=== PATIENT | male | born 1935 | race Caucasian/White ===

== ENCOUNTER 2017-01-07 10:18 | Inpatient (IN) | payer OTHER ==
[~2017-01-07] VITALS: Ht 180.3 cm; Wt 106.6 kg
[~2017-01-07 10:18] MED LIST: ALLOPURINOL300 M1 PO; BUMETANIDE1 M1 PO; CARDURA2 M1 PO; COUMADIN5 M2 PO; GLIPIZIDE AND M1 TA2 PO; JANUVIA 100MG100 MG PO; KLOR-CON M1010 ME1 PO; LANTUS SOL100 UNIT/1 SC; LANTUS SOLOS100 U/ML SC; LEVAQUIN500 MG PO; LEVEMIR100 U/ML SC; LOVENOX 4040 MG/0.4 SC; METFORMIN HCL500 MG PO; METOPROLOL TART25 M1 PO; NOVOLIN R1000 UNITS SC; VANCOMYCIN 11000 MG IV; ZOCOR20 M1 PO
--- NOTE | 2017-01-07 10:32 | ED SKIN/ALLERGY COMPLAINT ---
History of Present Illness General Chief Complaint: General Adult Stated Complaint: R ANKLE REDNESS Source: patient, old records, EMS Exam Limitations: no limitations Vital Signs & Intake/Output Vital Signs & Intake/Output Vital Signs Date Time Temp Pulse Resp B/P Pulse O2 O2 Flow FiO2 Ox Delivery Rate 01/07 1504 96.8 68 18 128/78 95 Room Air 01/07 1111 99 Room Air 01/07 1026 97.4 70 18 181/81 96 Room Air Allergies Coded Allergies: Sulfa (Sulfonamide Antibiotics) (Mild, ITCHING 01/07/17) Penicillins (HAD A REACTION A KID 01/07/17) Reconcile Medications Allopurinol 300 MG TABLET 1 TAB PO QPM GOUT (Reported) Bumetanide 1 MG TABLET 1 TAB PO DAILY WATER PILL (Reported) Doxazosin Mesylate (Cardura) 2 MG TABLET 1 TAB PO QPM BP (Reported) Gabapentin 300 MG CAPSULE 1 CAP PO BID NEUROPATHY (Reported) Insulin Glargine,Hum.rec.anlog (Lantus Solostar) 100 UNIT/ML (3 ML) INSULN.PEN 10 UNIT SC QPM DM (Reported) Insulin Glargine,Hum.rec.anlog (Lantus Solostar) 100 UNIT/ML (3 ML) INSULN.PEN 50 UNIT SC QPM DM (Reported) Metformin HCl 500 MG TABLET 1 TAB PO 1700 DM (Reported) Metoprolol Tartrate 25 MG TABLET 1 TAB PO BID BP (Reported) Potassium Chloride (Klor-Con M10) 10 MEQ TAB.ER.PRT 1 TAB PO BID SUPPLEMENT ( Reported) Simvastatin (Zocor*) 20 MG TABLET 1 TAB PO QPM CHOLESTEROL (Reported) Warfarin Sodium (Coumadin) 5 MG TABLET 1 TAB PO DAILY BLOOD THINNER (Reported ) Warfarin Sodium 5 MG TABLET 0.5 TAB PO QWED BLOOD THINNER (Reported) Triage Nurses Notes Reviewed? yes HPI: Patient is an 81-year-old male brought in by ambulance for evaluation of wounds to the right ankle and right foot. Patient reports that he has had wounds present for several months. Patient had an Unna boot for approximately 20 weeks , for the past 4 weeks he has been having calcium alginate and Betadine to the areas. Worsening ulcerations for the past one month, today patient's visiting nurse noticed surrounding redness in the ulcerations or worsening and 911 was called patient to be evaluated further. Patient reports pain is moderate, worsens with palpation. Patient denies fevers, chills, nausea, vomiting. (DWIGHT BOLES) Past History Travel History Traveled to [place] past 21 day No Medical History Any Pertinent Medical History? 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 No (DWIGHT BOLES) Review of Systems Review of Systems Constitutional: Denies: chills, fever. EENTM: Reports: no symptoms. Respiratory: Denies: cough, short of breath. Cardiovascular: Denies: chest pain. GI: Denies: abdominal pain, nausea, vomiting. Genitourinary: Reports: no symptoms. Musculoskeletal: Reports: no symptoms. Skin: Reports: see HPI. Neurological/Psychological: Reports: paresthesia (CHRONIC LOWER EXTREMITIES). Hematologic/Endocrine: Reports: no symptoms. Immunologic/Allergic: Reports: no symptoms. (DWIGHT BOLES) Physical Exam Physical Exam General Appearance: alert, awake Head: atraumatic, normal appearance Eyes: Bilateral: normal appearance, PERRL, EOMI. Ears, Nose, Throat: MILDLY HARD OF HEARING Neck: normal inspection, supple, full range of motion Respiratory: normal breath sounds, chest non-tender, no respiratory distress, lungs clear Cardiovascular: regular rate/rhythm Peripheral Pulses: 2+ dorsalis pedis (R) Gastrointestinal: soft, non-tender Extremities: 3 CM ULCERATION OVER THE RIGHT LATERAL MALLEOLUS, 4 CM ULCERATION OVER THE POSTERIOR CALCANEUS Neurologic/Psych: awake, alert, oriented x 3, normal mood/affect Skin: 3 CM SKIN ULCERATION OVER THE RIGHT LATERAL MALLEOLUS, 4 CM ULCERATION OVER THE POSTERIOR RIGHT CALCANEUS WITH SURROUNDING ERYTHEMA AND SKIN DISCLAMATION BETWEEN THE 2 ULCERATIONS. eRYTHEMA AND WARMTH EXTENDS CIRCUMFERENTIALLY TO THE RIGHT MID LEG. (PAVEL PENN,DWIGHT) Progress Differential Diagnosis: abscess/cellulitis, osteomyelitis, pressure ulcer Plan of Care: Orders Procedure Date/time Status Heart Healthy Diet 01/07 D Active Admit to inpatient 01/07 1414 Active Vital Signs 01/07 1414 Active Code Status 01/07 1414 Active LACTIC ACID 01/07 1332 Active Patient Data 01/07 1307 Active WESTERGREN SED RATE 01/07 1139 Complete FingerStick- Glucose 01/07 1042 Active Intake & Output 01/07 1038 Active PROTHROMBIN TIME 01/07 1036 Complete BLOOD CULTURE 01/07 1032 Active LACTIC ACID 01/07 1032 Complete COMPREHENSIVE METABOLIC PANEL 01/07 1032 Complete CBC WITHOUT DIFFERENTIAL 01/07 1032 Complete Laboratory Tests 01/07/17 1210: ESR Westergren 103 H 01/07/17 1129: Anion Gap 10, Estimated GFR 53 L, BUN/Creatinine Ratio 17.7, Glucose 179 H, Lactic Acid 1.4, Calcium 9.1, Total Bilirubin 0.5, AST 22, ALT 30, Alkaline Phosphatase 80, Total Protein 7.1, Albumin 3.4 L, Globulin 3.7, Albumin/ Globulin Ratio 0.9 L, PT 22.2 H, INR 2.13 H, CBC w Diff NO MAN DIFF REQ, RBC 4.11 L, MCV 91.8, MCH 30.6, RDW 15.3 H, MPV 9.3, Gran % 76.7 H, Lymphocytes % 15.2 L, Monocytes % 6.1, Eosinophils % 1.5, Basophils % 0.5, Absolute Granulocytes 6.6 H, Absolute Lymphocytes 1.3, Absolute Monocytes 0.5, Absolute Eosinophils 0.1, Absolute Basophils 0, PUBS MCHC 33.4 Microbiology 01/07 1216 BLOOD: Blood Culture - RECD 01/07 1129 BLOOD: Blood Culture - RECD 01/07/2017 12:15:57 PM: Results of labs and x-rays discussed with patient. Dr. Machuca paged to discuss. 01/07/2017 12:32:14 PM: Patient evaluated by Dr. Machuca: Start on IV antibiotics for cellulitis, recommends admission and likely surgical debridement. Patient reports his penicillin allergy was a rash when he was a child. Patient had ceftriaxone approximately one year ago without reported incident. Cefazonlin ordered per Dr. Machuca recommendation. Discussed with Dr. Pena. (DWIGHT BOLES) Diagnostic Imaging: Viewed by Me: Radiology Read. Discussed w/RAD: Radiology Read. Radiology Impression: PATIENT: ABIGAIL GROSS PRESENT AGE: 81 PATIENT ACCOUNT NO: [id number] : 34 LOCATION: [facility] ORDERING PHYSICIAN: DWIGHT PENN SERVICE DATE: 01/07/17 EXAM TYPE: RAD - XRY-ANKLE 3 OR MORE VIEWS R; XRY-FOOT COMPLETE, R EXAMINATION: XR RIGHT ANKLE AND FOOT. CLINICAL INFORMATION: Ulceration right calcaneus and lateral malleolus. Evaluate for osteomyelitis. COMPARISON: Ankle dated 12/01/2015. Single view of the foot dated 11/29/2014. TECHNIQUE: 3 views of the ankle and foot. FINDINGS: Ankle: Bone mineral density is diffusely decreased without evidence of fracture or dislocation. No focal osseous lesions are seen. There is a soft tissue defect overlying the lateral malleolus without evidence of underlying cortical destruction to suggest osteomyelitis on this examination. Foot: Once again there is diffuse osteopenia. No fracture or dislocation is identified in the foot. Toes are difficult to deformities most notably the fifth toe. There is a small Achilles spur off the calcaneus without evidence of cortical destruction to suggest osteomyelitis. There is deformity of the base of the right fifth metatarsal most consistent with a previous resection site. There is joint space narrowing without productive or erosive changes. IMPRESSION: Soft tissue defect overlying the lateral malleolus. There is osteopenia, there is no evidence of cortical destruction to suggest osteomyelitis in the foot or ankle. DICTATED BY: LEILA HARDING MD DATE/TIME DICTATED:01/07/171125 OPHTHALMIC PHOTOGRAPHER:SERGEY DATE/TIME TRANSCRIBED:01/07/171125 CONFIDENTIAL, DO NOT COPY WITHOUT APPROPRIATE AUTHORIZATION. <Electronically signed in Other Vendor System> SIGNED BY: LEILA HARDING MD 01/07/17 1136 (DWIGHT BOLES) Departure Departure Disposition: STILL A PATIENT Condition: Stable Clinical Impression Primary Impression: Cellulitis of right lower extremity Referrals: LIZZY SHAVER,CINTHYA Lemus (PCP/Family) Departure Forms: Customer Survey General Discharge Information Admission Note Spoke With: APERGIS MD,YIANNIS Documentation of Exam: Documentation of any treatments & extenuating circumstances including Concerns Regarding Discharge (functional status, medication knowledge or non-compliance, living conditions, etc.) that warrant an admission rather than observation: IV antibiotics, surgical debridement, consider bone scan to rule out osteomyelitis (PAVEL PENN,DWIGHT) PA/COPY HOLDER Co-Sign Statement Statement: ED Attending supervision documentation- [X] I saw and evaluated the patient. I have also reviewed all the pertinent lab results and diagnostic results. I agree with the findings and the plan of care as documented in the PA's/COPY HOLDER's documentation. [] I have reviewed the ED Record and agree with the PA's/COPY HOLDER's documentation. [] Additions or exceptions (if any) to the PAs/COPY HOLDER's note and plan are summarized below: [] (SJ PENA DO
--- NOTE | 2017-01-07 10:36 | NUR ---
81 YEAR OLD MALE TO ER VIA AMBULANCE FROM HIS HOME WITH COMPLAINTS OF R FOOT INFECTION. PT STATES THAT HE SEES VASCULAR AND DR SCHERER FOR THE SAME. PT NOTED WITH DRESSING IN PLACED TO R HEEL. DRESSING REMOVED AND PT NOTED WITH OPEN AREA WITH KALTOSTAT AND BULKY DRESSING IN PLACE AND SPEACIAL HEEL PROTECTORS. PT DENIES PAIN AND PER PT , A VISITING NURSE CAME OUT TO CHANGE DRESSING AND FELT THAT HE NEEDED FURTHER EVALUATION FOR INCREASED REDNESS. PT DENIES PAIN AT THIS TIME. 3 CM OPEN AREA TO R OUTER ANKLE AND 6X4 CM OPEN AREA TO HEEL, NO DRAINAGE NOTED AT THIS TIME, SKIN NOTED TO BE SLOTHING OFF AND REDNESS WITH NO WARMTH THAT EXSTENDS MID CALF. AFEBRILE ATTHIS TIME. PT STATES THAT HE IS TRANSFERRED AT HOME WITH KELLE LIFT.
--- NOTE | 2017-01-07 10:42 | NUR ---
finger stick 209
--- NOTE | 2017-01-07 11:10 | NUR ---
PT TO [facility] AT THIS TIME, WILL OBTAIN LAB WORK WHEN HE RETURNS
--- NOTE | 2017-01-07 11:36 | RADIOLOGY REPORT ---
EXAMINATION: XR RIGHT ANKLE AND FOOT. CLINICAL INFORMATION: Ulceration right calcaneus and lateral malleolus. Evaluate for osteomyelitis. COMPARISON: Ankle dated 12/01/2015. Single view of the foot dated 11/29/2014. TECHNIQUE: 3 views of the ankle and foot. FINDINGS: Ankle: Bone mineral density is diffusely decreased without evidence of fracture or dislocation. No focal osseous lesions are seen. There is a soft tissue defect overlying the lateral malleolus without evidence of underlying cortical destruction to suggest osteomyelitis on this examination. Foot: Once again there is diffuse osteopenia. No fracture or dislocation is identified in the foot. Toes are difficult to deformities most notably the fifth toe. There is a small Achilles spur off the calcaneus without evidence of cortical destruction to suggest osteomyelitis. There is deformity of the base of the right fifth metatarsal most consistent with a previous resection site. There is joint space narrowing without productive or erosive changes. IMPRESSION: Soft tissue defect overlying the lateral malleolus. There is osteopenia, there is no evidence of cortical destruction to suggest osteomyelitis in the foot or ankle.
--- NOTE | 2017-01-07 11:40 | NUR ---
IV ESTABLISHED, PT RESTING QUIETLY, ASSISTED WITH BEDSIDE TABLE PER PT REQUEST "SO I CAN READ"
[2017-01-07 11:50] LABS: ABSOLUTE BASOPHIL COUNT 0 /CUMM (0.0-0.2); ABSOLUTE EOSINOPHIL COUNT 0.1 /CUMM (0.0-0.7); ABSOLUTE GRANULOCYTE CT 6.6 /CUMM (1.4-6.5); ABSOLUTE LYMPH COUNT 1.3 /CUMM (1.2-3.4); ABSOLUTE MONOCYTE COUNT 0.5 /CUMM (0.10-0.60); BASOPHIL % 0.5 % (0.0-2.0); EOSINOPHIL % 1.5 % (0-5); GRANULOCYTE % 76.7 % (42.2-75.2); HEMATOCRIT 37.7 % (42-52); MEAN CORPUSCULAR HGB 30.6 PG (27.0-31.0); MEAN CORPUSCULAR HGB CONC 33.4 G/DL (33.0-37.0); MEAN CORPUSCULAR VOLUME 91.8 FL (80.0-94.0); MEAN PLATELET VOLUME 9.3 FL (7.4-10.4); PLATELET COUNT 272 /CUMM (130-400); RBC DISTRIBUTION WIDTH 15.3 % (11.5-14.5); RED BLOOD CELL CT 4.11 /CUMM (4.70-6.10); WHITE BLOOD CELL COUNT 8.6 /CUMM (4.8-10.8)
[2017-01-07] MEDS ORDERED: GABAPENTIN300 M2 PO (12:01)
[2017-01-07] MEDS ORDERED: METFORMIN HCL500 M3 PO (12:02)
[2017-01-07] MEDS ORDERED: WARFARIN SODIUM5 M1 PO (12:04)
[2017-01-07] MEDS ORDERED: LANTUS SOL100 UNIT/1 SC (12:05)
--- NOTE | 2017-01-07 12:14 | NUR ---
VANDANA TO BEDSIDE TO DISCUSS POC.
--- NOTE | 2017-01-07 12:19 | NUR ---
sed rate drawn and sent to lab, and 2nd set of blood cultures
[2017-01-07 12:39] LABS: PT 22.2 SEC (9.4-12.5)
--- NOTE | 2017-01-07 12:39 | Cons- Podiatry ---
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 Patient states that the lesion has been present for a few months and has been treated with Unna boots. Patient admits to recent exacerbation of his symptoms, with increased redness and pain associated with the lesion. Patient denies systemic signs of infection. Patient denies nausea vomiting fever chills. Allergies/Medications Allergies: Coded Allergies: Sulfa (Sulfonamide Antibiotics) (Mild, ITCHING 01/07/17) Penicillins (HAD A REACTION A KID 01/07/17) Home Med List: Allopurinol 300 MG TABLET 1 TAB PO QPM GOUT (Reported) Bumetanide 1 MG TABLET 1 TAB PO DAILY WATER PILL (Reported) Doxazosin Mesylate (Cardura) 2 MG TABLET 1 TAB PO QPM BP (Reported) Gabapentin 300 MG CAPSULE 1 CAP PO BID NEUROPATHY (Reported) Insulin Glargine,Hum.rec.anlog (Lantus Solostar) 100 UNIT/ML (3 ML) INSULN.PEN 10 UNIT SC QPM DM (Reported) Insulin Glargine,Hum.rec.anlog (Lantus Solostar) 100 UNIT/ML (3 ML) INSULN.PEN 50 UNIT SC QPM DM (Reported) Metformin HCl 500 MG TABLET 1 TAB PO 1700 DM (Reported) Metoprolol Tartrate 25 MG TABLET 1 TAB PO BID BP (Reported) Potassium Chloride (Klor-Con M10) 10 MEQ TAB.ER.PRT 1 TAB PO BID SUPPLEMENT ( Reported) Simvastatin (Zocor*) 20 MG TABLET 1 TAB PO QPM CHOLESTEROL (Reported) Warfarin Sodium (Coumadin) 5 MG TABLET 1 TAB PO DAILY BLOOD THINNER (Reported ) Warfarin Sodium 5 MG TABLET 0.5 TAB PO QWED BLOOD THINNER (Reported) Past History Medical History Neurological: vertigo EENT: benign positional vertigo Cardiovascular: hypertension, hyperlipidemia Respiratory: NONE Gastrointestinal: NONE Hepatic: NONE Renal: NONE Musculoskeletal: gout Psychiatric: NONE Endocrine: diabetes Blood Disorders: DVT Cancer(s): 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 Surgical History Pertinent Surgical History: non-contributory Psychosocial History Services at Home: Home Health Aide, Nursing ETOH Use: denies use Illicit Drug Use: denies illicit drug use Review of Systems Review of Systems: Unremarkable except for that noted in history present illness Exam & Diagnostic Data Vital Signs and I&O Vital Signs Date Time Temp Pulse Resp B/P Pulse O2 O2 Flow FiO2 Ox Delivery Rate 01/07 1111 99 Room Air 01/07 1026 97.4 70 18 181/81 96 Room Air Intake & Output 01/07 1600 01/07 0800 01/07 0000 01/06 1600 01/06 0800 01/06 0000 Intake Total 0 Output Total Balance 0 Intake, Oral 0 Patient 240 lb Weight Physical Exam: Villar grade 3 ulceration noted to the posterior lateral and inferior margin of the right heel. There is necrotic slough overlying a mixed granular and fibrotic wound bed. No probing or undermining identified. Boggy feel noted to the posterior and inferior margin of the heel pad. No fluctuance or crepitus identified. Cellulitis extending from the periphery of the lesion by proximally 6-7. Moderate amount of serous drainage identified. Assessment/Plan Assessment/Plan Nonhealing ulcerations with right lower extremity cellulitis. Recommend the patient be admitted for IV antibiotics. Strict elevation of his right lower extremity. Daily Xeroform and dry sterile dressing to the lesions at the heel and right ankle. We'll schedule the patient for a formal debridement in the OR on Tuesday or Tuesday with negative pressure wound therapy. Consult Acknowledgment - Thank you for your consult request. Attending MD Review Statement Attending Statement Attending MD Statement: examined this patient
--- NOTE | 2017-01-07 13:02 | NUR ---
ANCEF FINISHED, DIABETIC TRAY ORDERED, PT REPOSITIONED FOR COMFORT.
--- NOTE | 2017-01-07 13:30 | NUR ---
PT EATING LUNCH, REPOSITIONED IN BED FOR COMFORT, DENIES ANY NEEDS AT THIS TIME
--- NOTE | 2017-01-07 13:37 | History & Physical ---
[facility] 01/07/17 1335: General Information and HPI MD Statement: I have seen and personally examined ABIGAIL GROSS and documented this H&P. The patient is a 81 year old M who presented with a patient stated chief complaint of discharge from right wound ulcer. Source of Information: patient, family, old records Exam Limitations: no limitations History of Present Illness: Mr Gross is an 81-year-old gentleman with past medical history significant for peripheral vascular disease, hyperlipidemia hypertension and diabetes who Presented to the emergency department on 01/07/2017 after a visiting home nurse found that his chronic right ulcer looked more erythematous and was tender to touch. The patient states that over the last 4 weeks this ulcer has continued to develop more erythema and increased tenderness. He was recently changed his dressing type and had begun applying Calcium Alginate and Betadine to areas of ulceration. Over the last 5 years the patient has had recurrent ulcers. The patient has had a history of having his right lower extremity in an Unna boot for the last 20 weeks. Patient does endorse pain in certain positions described as "crampy" and "spasm- like". . He has an extensive smoking history. He also has been maintained on Warfarin since 1996 after he had developed lower extremity clots. The patient denies any fever, chills, nausea, vomiting Patient follows up with Dr. Mota. The patient is nonambulatory and normally uses a Shayna lift. His ambulation around the house is facilitated via a power chair Allergies/Medications Allergies: Coded Allergies: Sulfa (Sulfonamide Antibiotics) (Mild, ITCHING 01/07/17) Penicillins (HAD A REACTION A KID 01/07/17) Home Med list Allopurinol 300 MG TABLET 1 TAB PO QPM GOUT (Reported) Bumetanide 1 MG TABLET 1 TAB PO DAILY WATER PILL (Reported) Doxazosin Mesylate (Cardura) 2 MG TABLET 1 TAB PO QPM BP (Reported) Gabapentin 300 MG CAPSULE 1 CAP PO TID neuropathy (Reported) Insulin Glargine,Hum.rec.anlog (Lantus Solostar) 100 UNIT/ML (3 ML) INSULN.PEN 10 UNIT SC QPM DM (Reported) Insulin Glargine,Hum.rec.anlog (Lantus Solostar) 100 UNIT/ML (3 ML) INSULN.PEN 50 UNIT SC QPM DM (Reported) Metformin HCl 500 MG TABLET 1 TAB PO 1700 DM (Reported) Metoprolol Tartrate 25 MG TABLET 1 TAB PO BID BP (Reported) Simvastatin (Zocor*) 20 MG TABLET 1 TAB PO QPM CHOLESTEROL (Reported) Warfarin Sodium (Coumadin) 5 MG TABLET 1 TAB PO DAILY BLOOD THINNER (Reported ) Warfarin Sodium 5 MG TABLET 0.5 TAB PO QWED BLOOD THINNER (Reported) Compliance With Home Meds: GOOD Past History Travel History Traveled to [place] past 21 day No Medical History Neurological: vertigo EENT: benign positional vertigo Cardiovascular: hypertension, hyperlipidemia Respiratory: NONE Gastrointestinal: NONE Hepatic: NONE Renal: NONE Musculoskeletal: gout Psychiatric: NONE Endocrine: diabetes Blood Disorders: DVT Cancer(s): NONE 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 Home Who Do You Live With? spouse Services at Home: Home Health Aide, Nursing Primary Language: Azeri Smoking Status: Former Smoker ETOH Use: denies use Illicit Drug Use: denies illicit drug use Functional Ability ADLs Needs Assist: dressing, eating, toileting, bathing. Ambulation: Power Chair IADLs Independent: finances, telephone, medication admin. Needs Assist: shopping, housework, food prep, transportation. Employment History Employment Retired Review of Systems Review of Systems Constitutional: Reports: see HPI. Denies: chills, fever, malaise, unexplained weight loss. Exam & Diagnostic Data Last 24 Hrs of Vital Signs/I&O Vital Signs Date Time Temp Pulse Resp B/P Pulse O2 O2 Flow FiO2 Ox Delivery Rate 01/07 1504 96.8 68 18 128/78 95 Room Air 01/07 1111 99 Room Air 01/07 1026 97.4 70 18 181/81 96 Room Air Intake & Output 01/07 1600 01/07 0800 01/07 0000 Intake Total 0 Output Total Balance 0 Intake, Oral 0 Patient 108.862 kg Weight Physical Exam General Appearance Alert, Oriented X3, Cooperative HEENT Mucous Membr. moist/pink Cardiovascular Normal S1, Normal S2 Lungs Clear to Auscultation, Normal Air Movement Abdomen Normal Bowel Sounds, Soft, No Tenderness Neurological Normal Speech Extremities Left left in Boot Right leg, edema, 2+. Chronic venous stasis. Two ulcers: 4X4 And 2X2 Warm foot throughout Lateral and posterior aspect of right heel. Last 24 Hrs of Labs/Maikel: Laboratory Tests 01/07/17 1210: ESR Westergren 103 H 01/07/171128: Anion Gap 10, Estimated GFR 53 L, BUN/Creatinine Ratio 17.7, Glucose 179 H, Lactic Acid 1.4, Calcium 9.1, Total Bilirubin 0.5, AST 22, ALT 30, Alkaline Phosphatase 80, Total Protein 7.1, Albumin 3.4 L, Globulin 3.7, Albumin/ Globulin Ratio 0.9 L, PT 22.2 H, INR 2.13 H, CBC w Diff NO MAN DIFF REQ, RBC 4.11 L, MCV 91.8, MCH 30.6, RDW 15.3 H, MPV 9.3, Gran % 76.7 H, Lymphocytes % 15.2 L, Monocytes % 6.1, Eosinophils % 1.5, Basophils % 0.5, Absolute Granulocytes 6.6 H, Absolute Lymphocytes 1.3, Absolute Monocytes 0.5, Absolute Eosinophils 0.1, Absolute Basophils 0, PUBS MCHC 33.4 Microbiology 01/07 121 BLOOD: Blood Culture - RECD 01/07 1129 BLOOD: Blood Culture - RECD Diagnostic Data Other Results SERVICE DATE: 01/07/17 EXAM TYPE: RAD - XRY-ANKLE 3 OR MORE VIEWS R; XRY-FOOT COMPLETE, R Foot: Once again there is diffuse osteopenia. No fracture or dislocation is identified in the foot. Toes are difficult to deformities most notably the fifth toe. There is a small Achilles spur off the calcaneus without evidence of cortical destruction to suggest osteomyelitis. There is deformity of the base of the right fifth metatarsal most consistent with a previous resection site. There is joint space narrowing without productive or erosive changes. IMPRESSION: Soft tissue defect overlying the lateral malleolus. There is osteopenia, there is no evidence of cortical destruction to suggest osteomyelitis in the foot or ankle. DICTATED BY: LEILA HARDING MD Assessment/Plan Assessment: This is an 81-year-old male who presented with questionable cellulitis of the lower right ankle. Non Healing ulcer due to venous insufficiency, chronic stasis and history of diabetes. Patient was seen by alpine patroller in ED. Will need to be taken to the OR for an I and D. In the mean time, we will begin the patient on Antibiotics, Vancomycin. Check vancomycin level Q48. Wound care consult in am. Keep foot elevated. History of PVD Consider vascular consultation in am. May riquire additional imaging vs assessment of patency of the lower extremities. History of right lower extremity bilateral clots. Patient denies any family history of previous blood disorders. Continue warfarin on a daily basis 5 mg. INR on presentation was 2.01. Lower extremity edema. Patient is currently on Bumex again 1 mg daily. Dose is currently held due to elevated creatinine. Repeat BeP in am, consider restarting. Diabetes mellitus Begin the patient on sliding scale insulin. Hemoglobin A1c for long-term glycemic control. Obtain endocrinology consult if warranted. Diet Consistent carbohydrate diet DVT prophylaxis Warfarin CODE STATUS DNR/DNI As Ranked By This Provider Problem List: 1. Cellulitis of right lower extremity 2. Pressure ulcer 3. Popliteal aneurysm 4. DVT prophylaxis Core Measures/Miscellaneous Acute Coronary Syndrome ACS Diagnosis: No Cerebrovascular Accident CVA/TIA Diagnosis: No Congestive Heart Failure CHF Diagnosis: No Venous Thromboembolism VTE Risk Factors: Age > 40 No [facility] VTE prophylaxis d/t: Dermatitis, LE Edema, Peripheral vascular Dx No VTE Pharm Prophylaxis d/t: No contraindications VTE Diagnosis: No VTE Type: NONE VTE Confirmed by (Test): NONE Severe Sepsis Severe Sepsis Present: No Septic Shock Septic Shock Present: No Miscellaneous Documentation Attending Case Discussed With: MILTON DIALLO MD Primary Care Physician: CINTHYA BALL MD, V. Patient sees these Specialists NA Level of Patient Care: General Medicine MILTON DIALLO MD 01/07/17 1448: Attending MD Review Statement Attending Statement Attending MD Statement: examined this patient, discuss w/resident/PA/HAZARDOUS WASTE TECHNICIAN, agreed w/resident/PA/HAZARDOUS WASTE TECHNICIAN, reviewed EMR data (avail), discussed with nursing, reviewed images, amended to note Attending Assessment/Plan: 81 y/o M with pmh sig for htn, hpl, diabetes, ch right foot wounds who is presenting with non healing right heel and ankle wound that has been having some discharge and infected looking. He follows with Dr. Mina at wound care. He has a 24 hour care at home and is a Hoir Lift. He gets daily dressing changes and his nurse noted some change in his chronic wound. Therefore patient sent to ER and seen by Dr. mina who recommended IV abx and he will take him to OR next week. Pt denies any pain as such but he has neuropathy. Vital Signs Date Time Temp Pulse Resp B/P Pulse O2 O2 Flow FiO2 Ox Delivery Rate 01/07 1111 99 Room Air 01/07 1026 97.4 70 18 181/81 96 Room Air on exam; aox3, nad, cv; s1,s2, rrr resp; clear abd; soft, nt, bs+ ext; trace edema skin; + ulcer on right heel and right ankle. Laboratory Tests 01/07 01/07 1210 1129 Chemistry Sodium (137 - 145 mmol/L) 139 Potassium (3.5 - 5.1 mmol/L) 4.3 Chloride (98 - 107 mmol/L) 100 Carbon Dioxide (22 - 30 mmol/L) 29 Anion Gap (5 - 16) 10 BUN (9 - 20 mg/dL) 23 H Creatinine (0.7 - 1.2 mg/dL) 1.3 H Estimated GFR (>60 ml/min) 53 L BUN/Creatinine Ratio (7 - 25 %) 17.7 Glucose (65 - 99 mg/dL) 179 H Lactic Acid (0.7 - 2.1 mmol/L) 1.4 Calcium (8.4 - 10.2 mg/dL) 9.1 Total Bilirubin (0.2 - 1.3 mg/dL) 0.5 AST (17 - 59 U/L) 22 ALT (21 - 72 U/L) 30 Alkaline Phosphatase (< 127 U/L) 80 Total Protein (6.3 - 8.2 g/dL) 7.1 Albumin (3.5 - 5.0 g/dL) 3.4 L Globulin (1.9 - 4.2 gm/dL) 3.7 Albumin/Globulin Ratio (1.1 - 2.2 %) 0.9 L Coagulation PT (9.4 - 12.5 SEC) 22.2 H INR (0.90 - 1.17) 2.13 H Hematology CBC w Diff NO MAN DIFF REQ WBC (4.8 - 10.8 /CUMM) 8.6 RBC (4.70 - 6.10 /CUMM) 4.11 L Hgb (14.0 - 18.0 G/DL) 12.6 L Hct (42 - 52 %) 37.7 L MCV (80.0 - 94.0 FL) 91.8 MCH (27.0 - 31.0 PG) 30.6 RDW (11.5 - 14.5 %) 15.3 H Plt Count (130 - 400 /CUMM) 272 MPV (7.4 - 10.4 FL) 9.3 Gran % (42.2 - 75.2 %) 76.7 H Lymphocytes % (20.5 - 51.1 %) 15.2 L Monocytes % (1.7 - 9.3 %) 6.1 Eosinophils % (0 - 5 %) 1.5 Basophils % (0.0 - 2.0 %) 0.5 Absolute Granulocytes (1.4 - 6.5 /CUMM) 6.6 H Absolute Lymphocytes (1.2 - 3.4 /CUMM) 1.3 Absolute Monocytes (0.10 - 0.60 /CUMM) 0.5 Absolute Eosinophils (0.0 - 0.7 /CUMM) 0.1 Absolute Basophils (0.0 - 0.2 /CUMM) 0 PUBS MCHC (33.0 - 37.0 G/DL) 33.4 ESR Westergren (0 - 10 MM) 103 H All imaging reviewed. A/P; 81 y/o M with pmh sig for htn, hpl, diabetes, ch right foot wounds who is presenting with non healing infected right heel and ankle wound. Admit to Gen med. Patient will be taken to OR with Dr. Mina next week. Will start abx (vanco). He has hx of coag neg staph as well as enterococcus in 2014 sensitive to vanco. This was confirmed with Dr. Mina. Vascular surg consult. Please confirm and continue home meds. Blood cx sent in er. DVt px; Pt on coumadin, INR therapeutic. Will dose accordingly. DNR/I. LIZZETH SHAVER,[facility] 01/07/17 1618: Resident Review Statement Resident Statement: examined this patient, discussed with cad intern, agreed with cad intern, discussed with family, reviewed EMR data (avail) Other Findings: 82-year-old male with Past medical history of diabetes mellitus, severe peripheral vascular disease, severe neuropathy, hypertension, hyperlipidemia presented to the ED with worsening off chronic nonhealing foot ulcer. She has history of chronic nonhealing ulcer on and off over the last 5 years. His current only in the ankle has been present over the last 1 year. He was on no boots for the last 20 weeks and has been started on calcium alginate and Betadine dressing over the last 4 weeks. Visiting nurse was concerned about infection call [address] [place] [address] and was brought into the hospital. Otherwise patient denied any pain, fever, chills. Please refer to H&P for vitals and labs. On examination patient alert awake oriented, comfortable at bedside. HEENT: Pupils equal and reactive to light Cardiovascular: S1, S2 regular Respiratory: Bilateral breath sounds equal next and abdomen: Soft, nontender, pulses present. Extremities: Nonhealing ulcers present at the right heel and on the lateral aspect of the right malleolus, no tenderness seen, sloughy yellow base seen on both the ulcers with serous bloody discharge on the dressing seen. Assessment and plan 1. Chronic nonhealing ulcer with questionable infection in the setting off severe peripheral vascular disease/diabetes mellitus/neuropathy: She was seen by podiatry in the ED who recommended to start on antibiotic pending debridement of the wound on Tuesday. Given his previous history is off enterococcus sensitive to vancomycin be would change cefazolin to vancomycin and dose him as per Vanco level on a daily basis. If kidney functions improves he will continue on a daily dosing. We'll start him on IV fluids, foot elevation, wound care. 2. History of PE on the right lower extremity about 20 years ago: Patient is on warfarin as per his primary care physician. We will continue his warfarin to maintain on INR between 2-3. 3. Diabetes mellitus: We will change his insulin to 25 twice a day with a NovoLog sliding scale coverage. 4. Lower extremity swelling: Patient on Bumex 1 mg daily. We will hold off today given his HPI. We will resume his diuretics in a.m. once creatinine normalizes. 5. Neuropathy: We will continue his home medications 6. Gout: We will continue his home medications DNR/DNI DVT prophylaxis with warfarin Diabetic diet
--- NOTE | 2017-01-07 16:03 | NUR ---
PT IS GOING TO ROOM 224-1
--- NOTE | 2017-01-07 16:16 | NUR ---
GRILLED CHEESE ORDERED FOR PT
--- NOTE | 2017-01-07 16:42 | NUR ---
REPORT CALLED TO JORGE LINDO
[2017-01-07 17:25] VITALS: BP 142/66
--- NOTE | 2017-01-07 18:59 | Cons- Vascular Surgery ---
CHASITY HERNÁNDEZ 01/07/17 1856: General Information and HPI Consulting Request Date of Consult: 01/07/17 Requested By: MILTON DIALLO MD Reason for Consult: Non-healing foot ulcer, cellulitis Source of Information: patient History of Present Illness: This is an 81-year-old gentleman with past medical history significant for hyperlipidemia hypertension diabetes. Presented to the emergency department on 01/07/2017 after a visiting nurse found that his chronic right ulcer looked more erythematous and began to have a slight discharge as well as foul-smelling. The patient denies any fever, chills, nausea, vomiting. Allergies/Medications Allergies: Coded Allergies: Sulfa (Sulfonamide Antibiotics) (Mild, ITCHING 01/07/17) Penicillins (HAD A REACTION A KID 01/07/17) Home Med List: Allopurinol 300 MG TABLET 1 TAB PO QPM GOUT (Reported) Bumetanide 1 MG TABLET 1 TAB PO DAILY WATER PILL (Reported) Doxazosin Mesylate (Cardura) 2 MG TABLET 1 TAB PO QPM BP (Reported) Gabapentin 300 MG CAPSULE 1 CAP PO TID neuropathy (Reported) Insulin Glargine,Hum.rec.anlog (Lantus Solostar) 100 UNIT/ML (3 ML) INSULN.PEN 10 UNIT SC QPM DM (Reported) Insulin Glargine,Hum.rec.anlog (Lantus Solostar) 100 UNIT/ML (3 ML) INSULN.PEN 50 UNIT SC QPM DM (Reported) Metformin HCl 500 MG TABLET 1 TAB PO 1700 DM (Reported) Metoprolol Tartrate 25 MG TABLET 1 TAB PO BID BP (Reported) Simvastatin (Zocor*) 20 MG TABLET 1 TAB PO QPM CHOLESTEROL (Reported) Warfarin Sodium (Coumadin) 5 MG TABLET 1 TAB PO DAILY BLOOD THINNER (Reported ) Warfarin Sodium 5 MG TABLET 0.5 TAB PO QWED BLOOD THINNER (Reported) Past History Medical History Neurological: vertigo EENT: benign positional vertigo Cardiovascular: hypertension, hyperlipidemia Respiratory: NONE Gastrointestinal: NONE Hepatic: NONE Renal: NONE Musculoskeletal: gout Psychiatric: NONE Endocrine: diabetes Blood Disorders: DVT Cancer(s): NONE 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 Home Who Do You Live With? spouse Services at Home: Home Health Aide, Nursing Primary Language: Argentine Smoking Status: Former Smoker ETOH Use: denies use Illicit Drug Use: denies illicit drug use Functional Ability ADLs Needs Assist: dressing, eating, toileting, bathing. Ambulation: Power Chair IADLs Independent: finances, telephone, medication admin. Needs Assist: shopping, housework, food prep, transportation. Employment History Employment: Retired Review of Systems Review of Systems Constitutional: Reports: see HPI. Denies: chills, fever. EENTM: Reports: no symptoms. Cardiovascular: Reports: no symptoms. Respiratory: Reports: no symptoms. GI: Reports: no symptoms. Genitourinary: Reports: no symptoms. Musculoskeletal: Reports: no symptoms. Skin: Reports: see HPI, change in skin color, erythema, lesions. Neurological/Psychological: Reports: pre-existing deficit. Hematologic/Endocrine: Reports: no symptoms. Immunologic/Allergic: Reports: no symptoms. Exam & Diagnostic Data Vital Signs and I&O Vital Signs Date Time Temp Pulse Resp B/P Pulse O2 O2 Flow FiO2 Ox Delivery Rate 01/07 1725 98.0 80 18 142/66 98 Room Air 01/07 1658 97.0 67 18 135/66 97 Room Air 01/07 1504 96.8 68 18 128/78 95 Room Air 01/07 1111 99 Room Air 01/07 1026 97.4 70 18 181/81 96 Room Air Intake & Output 01/07 1600 01/07 0800 01/07 0000 01/06 1600 01/06 0800 01/06 0000 Intake Total 0 Output Total Balance 0 Intake, Oral 0 Patient 240 lb Weight Physical Exam: Villar grade 3 ulceration noted to the posterior lateral and inferior margin of the right heel. There is necrotic slough overlying a mixed granular and fibrotic wound bed. No probing or undermining identified. Boggy feel noted to the posterior and inferior margin of the heel pad. No fluctuance or crepitus identified. Cellulitis extending from the periphery of the lesion by proximally 6-7. Moderate amount of serous drainage identified. DP and PT pulses heard on doppler, skin pink in color, warm throughout foot. Assessment/Plan Assessment/Plan This is a 81 year old male with a pmh significant for diabetes with neuropathy and hyperlipidemia. He was biba today for evaluation of a non-healing ulcer to the lateral and posterior aspect of his right heel that has been worsening in color with regard to erythema and purulence. -Admitted to hospital for iv abx to be managed by medicine team -Dressing changed per recommendations of Dr. Machuca -Foot to remain elevated -Arterial ultrasound recommended by Dr. Lawler -Plan for arteriogram on Tuesday with Dr. Lawler Consult Acknowledgment - Thank you for your consult request. WILMER SHAVER,[facility] 01/08/17 1237: Assessment/Plan Consult Acknowledgment - Thank you for your consult request.
--- NOTE | 2017-01-07 20:10 | NUR ---
0795- PT ARRIVED TO FLOOR FROM ER VIA STRETCHER. VSS. A/V/OX3. MOTORIZED WHEELCHAIR BOUND AT BASELINE. ULCERATION NOTED TO R HEEL AND LATERAL ANKLE. +R LE PEDAL AND POST TIBIAL PULSES BY DOPPLER. BUTTOCKS PINK/ BLANCHABLE AND INTACT. SIZEWISE MATTRESS ORDERED. PT HAS 24 HR AID AT HOME AT BASELINE. ORIENTED TO ROOM AND CALL LIGHT FOR ASSIST.
[2017-01-07 23:00] VITALS: BP 130/80
--- NOTE | 2017-01-08 05:24 | NUR ---
NURSING NOTE: THROUGHOUT SHIFT PT HAS NOT WANTED TO BE REPOSITIONED. INSISTS ON STAYING ON HIS BACK IN SEMI FOWLERS POSITION. PT EDUCATED ON SKIN BREAKDOWN. PER PREVIOUS RN, SIZEWISE ON ORDER. RN WILL CONTINUE TO MONITOR.
[2017-01-08 06:54] VITALS: BP 132/68
--- NOTE | 2017-01-08 07:58 | PN- Housestaff ---
WILMER SHAVER,[facility] 01/08/17 0758: Subjective Follow-up For: PVD Osteomyelitis Subjective: Mr Bentley was seen and examined this morning. He denies any issues overnight. He states that he feels good. He denies any fever, chills, nausea, vomiting. He is currently on IV antibiotics which he is tolerating well. Review of Systems Constitutional: Reports: see HPI. Objective Last 24 Hrs of Vital Signs/I&O Vital Signs Date Time Temp Pulse Resp B/P Pulse O2 O2 Flow FiO2 Ox Delivery Rate 01/08 0914 98.9 79 16 140/70 01/08 0654 99.3 75 18 132/68 93 Room Air 01/07 2300 97.6 80 16 130/80 100 Room Air 01/07 2114 80 130/80 01/07 1725 98.0 80 18 142/66 98 Room Air 01/07 1658 97.0 67 18 135/66 97 Room Air 01/07 1504 96.8 68 18 128/78 95 Room Air Intake & Output 01/08 1600 01/08 0800 01/08 0000 Intake Total 500 500 Output Total 500 Balance 0 500 Intake, Oral 500 500 Output, Urine 500 Patient 108.862 kg Weight Physical Exam General Appearance: Alert, Oriented X3, Cooperative Cardiovascular: Regular Rate, Normal S1, Normal S2 Lungs: Clear to Auscultation Abdomen: Normal Bowel Sounds, Soft, No Tenderness Neurological: Normal Speech Extremities: Right Lower extremity wrapped in a bandage. Chronic venous stasis present in LE Current Medications: Current Medications Sig/Fabricio Start time Last Medication Dose Route Stop Time Status Admin Allopurinol 300 MG QPM 01/07 2200 AC 01/07 PO 211 Atorvastatin Calcium 10 MG 1700 01/07 1700 AC 01/07 PO 1647 Bumetanide 1 MG DAILY 01/08 1017 AC 01/08 PO 1208 Doxazosin Mesylate 2 MG QPM 01/07 2200 AC 01/07 PO 2114 Gabapentin 300 MG BID 01/07 220 DC PO Gabapentin 0 .STK-MED ONE 01/07 1621 DC PO Gabapentin 300 MG TID 01/07 1601 AC 01/08 PO 0914 Heparin Sodium 5,000 UNIT Q8 01/07 2200 CAN (Porcine) SC Insulin Aspart 0 TIDAC 01/07 1700 AC 01/08 SC 1236 Insulin Detemir 25 UNITS BID 01/07 2200 AC 01/08 SC 0914 Metoprolol Tartrate 25 MG BID 01/07 2200 AC 01/08 PO 0914 Vancomycin HCl 1,500 MG ONCE ONE 01/08 1030 DC 01/08 Dextrose/Water 500 ML IV 01/08 1229 1315 Vancomycin HCl 1,000 MG DAILY 01/07 1600 DC 01/07 Dextrose/Water 250 ML IV 01/07 1659 1709 Warfarin Sodium 5 MG COUMADIN 1700 ONE 01/08 1700 AC PO 01/08 1701 Warfarin Sodium 5 MG COUMADIN 1700 ONE 01/07 1700 DC 01/07 PO 01/07 1701 1647 Last 24 Hrs of Lab/Maikel Results Last 24 Hrs of Labs/Mics: Laboratory Tests 01/08/17 0705: Anion Gap 8, Estimated GFR 58 L, BUN/Creatinine Ratio 15.0, PT 23.2 H, INR 2.23 H, CBC w Diff NO MAN DIFF REQ, RBC 3.65 L, MCV 92.6, MCH 30.2, RDW 15.3 H, MPV 9.2, Gran % 69.6, Lymphocytes % 19.6 L, Monocytes % 7.7, Eosinophils % 2.8, Basophils % 0.3, Absolute Granulocytes 5.7, Absolute Lymphocytes 1.6, Absolute Monocytes 0.6, Absolute Eosinophils 0.2, Absolute Basophils 0, PUBS MCHC 32.6 L, Random Vancomycin 6.5 Assessment/Plan Assessment: This is an 81-year-old male who presented with questionable cellulitis of the lower right ankle. Non Healing ulcer due to venous insufficiency, chronic stasis and history of diabetes. Patient was seen by military source operations officer in ED. Will need to be taken to the OR for an I and D. In the mean time, we will begin the patient on Antibiotics, Vancomycin. Dose 1,500 mg. Check vancomycin level Q48. Wound care consult in am. Keep foot elevated. History of PVD Consider vascular consultation in am. Arterial Ultrasound has been ordered following surgical recomendations. Patient will be taken for Arteriogram on Tuesday01/10/2017. History of right lower extremity bilateral clots. Patient denies any family history of previous blood disorders. Continue warfarin on a daily basis 5 mg. INR on presentation was 2.01. Lower extremity edema. Patient is currently on Bumex again 1 mg daily. We started his Bumey on 01/08/2017. Repeat BEP in AM. Diabetes mellitus Continue the patient on sliding scale insulin. Hemoglobin A1c for long-term glycemic control. Obtain endocrinology consult if warranted. Diet Consistent carbohydrate diet DVT prophylaxis Warfarin--> Started on an IV heparin drip due to OR on 01/10 CODE STATUS DNR/DNI Problem List: 1. Pressure ulcer 2. DVT prophylaxis 3. Hx of deep venous thrombosis 4. HTN (hypertension) 5. Gout Pain Ratin Pain Location: RLE Pain Goal: Remain pain free Pain Plan: Gabapentin Tylenol PRN Tomorrow's Labs & Rationales: INR: Coumadin Dosing Vancomycin level JOSH SHAVER,[facility] 01/08/17 1033: Attending MD Review Statement Attending Statement Attending MD Statement: examined this patient, discuss w/resident/PA/[employer], agreed w/resident/PA/[employer], reviewed EMR data (avail) Attending Assessment/Plan: Patient seen and examined. Plan of care discussed with the medical team and the patient. Available lab work and radiology test reports were reviewed. Patient has been afebrile and currently comfortable. Complains of for moderate left leg pain. Denies any fever chills or chest pains. MAXIMUM TEMPERATURE is 99.3. Otherwise vital signs stable. Chest exam is clear abdomen soft nontender. Legs do not show any edema. WBC count is normal and chemistry labs are within normal limits. INR is 2.23. Her cultures are currently pending. Plans to continue vancomycin. Patient will be taken cooperation later next week for debridement by Dr. Machuca. Continue warfarin and recheck INR. No need to check daily CBCs and chemistry labs.
[2017-01-08 08:31] LABS: PT 23.2 SEC (9.4-12.5)
[2017-01-08 08:55] LABS: ABSOLUTE BASOPHIL COUNT 0 /CUMM (0.0-0.2); ABSOLUTE EOSINOPHIL COUNT 0.2 /CUMM (0.0-0.7); ABSOLUTE GRANULOCYTE CT 5.7 /CUMM (1.4-6.5); ABSOLUTE LYMPH COUNT 1.6 /CUMM (1.2-3.4); ABSOLUTE MONOCYTE COUNT 0.6 /CUMM (0.10-0.60); BASOPHIL % 0.3 % (0.0-2.0); EOSINOPHIL % 2.8 % (0-5); GRANULOCYTE % 69.6 % (42.2-75.2); HEMATOCRIT 33.7 % (42-52); MEAN CORPUSCULAR HGB 30.2 PG (27.0-31.0); MEAN CORPUSCULAR HGB CONC 32.6 G/DL (33.0-37.0); MEAN CORPUSCULAR VOLUME 92.6 FL (80.0-94.0); MEAN PLATELET VOLUME 9.2 FL (7.4-10.4); PLATELET COUNT 235 /CUMM (130-400); RBC DISTRIBUTION WIDTH 15.3 % (11.5-14.5); RED BLOOD CELL CT 3.65 /CUMM (4.70-6.10); WHITE BLOOD CELL COUNT 8.1 /CUMM (4.8-10.8)
--- NOTE | 2017-01-08 11:22 | PN- Podiatry ---
Subjective Subjective: Patient seen at bedside with no acute complaints. Patient denies nausea vomiting fever chills. Objective Vital Signs and I&Os Vital Signs Date Time Temp Pulse Resp B/P Pulse O2 O2 Flow FiO2 Ox Delivery Rate 01/08 0914 98.9 79 16 140/70 01/08 0654 99.3 75 18 132/68 93 Room Air 01/07 2300 97.6 80 16 130/80 100 Room Air 01/07 2114 80 130/80 01/07 1725 98.0 80 18 142/66 98 Room Air 01/07 1658 97.0 67 18 135/66 97 Room Air 01/07 1504 96.8 68 18 128/78 95 Room Air Intake & Output 01/08 1600 01/08 0800 01/08 0000 01/07 1600 01/07 0800 01/07 0000 Intake Total 500 500 0 Output Total 500 Balance 0 500 0 Intake, Oral 500 500 0 Output, Urine 500 Patient 240 lb 240 lb Weight Physical Exam: Dressing right foot clean dry and intact. No strikethrough identified. No pain with deep palpation bilateral lower extremities. Assessment/Plan Assessment/Plan Cellulitis right lower extremity with nonhealing ulceration. Continue IV antibiotics. Continue daily Xeroform and dry sterile dressing changes. Patient 's the OR Tuesday for angiography and debridement right foot. Attending MD Review Statement Attending Statement Attending MD Statement: examined this patient
--- NOTE | 2017-01-08 12:14 | PN- Student ---
Subjective Subjective: [CC]: Right foot/ankle ulcer on medial and lateral aspect. [HPI]: Mr. Bentley is an 81 y/o male that was narinder in by ambulance for evaluation of Right ankle/foot wounds that have been present for several months. The pt had an UNNA boot in place for appoximately 20 weeks, it was changed one time a week and was apparently managed at [facility]. The UNNA boot was d/c ~2 months ago. The pt also stated that for the past four weeks, he had been applying calcium alginate and Betadine to the areas of ulceration. He reported that the ulcers have been seemingly getting worse in the last month. The pt has home health services through a visiting nurse. The nurse noticed the ulceration has worsened and therefore recommended the pt seek emergency help sinced the area seemed beyond baseline w/ worsening erythema and tenderness. The patient also has a home health aid (director education) that assists w/ daily activities. [PMHx]/[PSurgHx]: - HTN - HL - Benign Positional Vertigo: - Diabetes/Neuropathy: - Brain aneurysm - clipped and likely stented. - Blood clot in the (R) lower extemity in 1994. [SocHx]: Tobacco: Smoked tobacco for approximately 40 years and quit around ~1995. 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 Activities of Daily Living: Pt lives with his spouse and has home health services. REVIEW OF SYSTEMS: [General]: Sweating ( ); Fever or chills ( ); Fatigue ( ) [Eyes]: Visual Changes (YES - patient stated he likely needs new glasses); Pain ( ); Redness ( ) [ENT]: Headaches ( ); hoarseness ( ); sore throat ( YES - 2 weeks ago for about 3 days ); epistaxis ( ); sinus symptoms ( Yes - consistent runny nose); hearing loss ( YES - chronic, age related); tinnitus () [CVS]: Chest Pain (); Edema (); PND (); Orthopnea (); Palpitations ( Yes - pt reports occasional "skipped beats" likely a PVC, denied A-Fib); Claudication ( YES - despite the pt not being able to walk, he experiences occasional leg pain w/ tenderness and decreased sensation in the lower extemities.) [Respiratory]: Cough (); SOB (); Wheezing (); Hypersomnolence () [GI]: Abdominal Pain (); Stool changes (); Nausea/Vomiting (); Diarrhea (); Heartburn (); Blood in Stool () []: Dysuria ( Yes occasionally/mild ); Frequency (); Hematuria (); Discharge ( ); [MSK]: Arthralgias (); Arthritis (); Joint Swelling (); Myalgias (); Back Pain ( ) [Heme/Lymph]: Bleeding (); Bruising (); Clotting (YES - see PMHx - patient is on chronic anticoagulation); Transfusions (); Lymph Node Swelling (); [Endo]: Polyuria (); Polydipsia (); Polyphagia (); Heat/Cold Intolerance ( YES - patient states that he is always cold); [Derm]: Rash (Yes - lower extemities); Pruritus () [Neuro]: Weakness (); Seizures (); Paresthesias (); Tremor (); Syncope (); Vertigo (YES - benign positional, pt stated that it is likely because the patient is bed bound) [Psych]: Anxiety (); Depression (YES - due to patients current state of health, he stated that he does get mildly depressed because his ADLs have decreased); Hallucinations (); Claustrophobia () [All/Imm]: Current Medications Sig/Fabricio Start time Last Medication Dose Route Stop Time Status Admin Allopurinol 300 MG QPM 01/07 2200 AC 01/07 PO 211 Atorvastatin Calcium 10 MG 1700 01/07 1700 AC 01/07 PO 1647 Bumetanide 1 MG DAILY 01/08 1017 AC PO Cefazolin Sodium 0 .STK-MED ONE 01/07 1238 DC .ROUTE Cefazolin Sodium 1,000 MG ONCE ONE 01/07 1230 DC 01/07 IV 01/07 1231 1240 Doxazosin Mesylate 2 MG QPM 01/07 2200 AC 01/07 PO 2114 Gabapentin 300 MG BID 01/07 2200 DC PO Gabapentin 0 .STK-MED ONE 01/07 1621 DC PO Gabapentin 300 MG TID 01/07 1601 AC 01/08 PO 0914 Heparin Sodium 5,000 UNIT Q8 01/07 2200 CAN (Porcine) SC Insulin Aspart 0 TIDAC 01/07 1700 AC 01/08 SC 0817 Insulin Detemir 25 UNITS BID 01/07 2200 AC 01/08 SC 0914 Metoprolol Tartrate 25 MG BID 01/07 2200 AC 01/08 PO 0914 Vancomycin HCl 1,500 MG ONCE ONE 01/08 1030 AC Dextrose/Water 500 ML IV 01/08 1229 Vancomycin HCl 1,000 MG DAILY 01/07 1600 DC 01/07 Dextrose/Water 250 ML IV 01/07 1659 1709 Warfarin Sodium 5 MG COUMADIN 1700 ONE 01/08 1700 AC PO 01/08 1701 Warfarin Sodium 5 MG COUMADIN 1700 ONE 01/07 1700 DC 01/07 PO 01/07 1701 1647 Objective Objective: Vital Signs Date Time Temp Pulse Resp B/P Pulse O2 O2 Flow FiO2 Ox Delivery Rate 01/08 0914 98.9 79 16 140/70 01/08 0654 99.3 75 18 132/68 93 Room Air 01/07 2300 97.6 80 16 130/80 100 Room Air 01/07 2114 80 130/80 01/07 1725 98.0 80 18 142/66 98 Room Air 01/07 1658 97.0 67 18 135/66 97 Room Air 01/07 1504 96.8 68 18 128/78 95 Room Air Intake & Output 01/08 1600 01/08 0800 01/08 0000 Intake Total 500 500 Output Total 500 Balance 0 500 Intake, Oral 500 500 Output, Urine 500 Patient 240 lb Weight PHYSICAL EXAM: [General Appearance]: Dress: (X) nl hygiene Affect: (X) nl affect, not flat, blunted, or expansive MSE: Oriented in Time, Person, Place [Eyes] General: (X) nl conjunctiva & lids Pupils: (X) equal, round, and reactive Fundus: () nl discs & vessels (not tested) Vision: () acuity & gross king intact (not tested) Abnormals: [ENT]: External: (X) no scars, lesions, masses. Otoscopic: () nl canals, tympanic membranes (not tested) Hearing: () nl to finger rub Oropharynx: (X) nl teeth, tongue, palate, pharynx. Abnormals: Decreased hearing [Neck]: External: (X) no tracheal deviation Palpation: (X) no masses or crepitus Thyroid: (X) no 'megaly or tenderness. Abnormals: [GI]: Palpation: (X) no masses or tenderness (X) no hep/splenomegaly Auscultation: (X) nl bowel sounds Percussion: (X) no shifting dullness Anus/rectum : () no abnormalities or masses (not tested) () heme negative stool (not tested) Abnormals: [Respiratory]: Effort: (X) nl without retractions Percussion: () no dullness or hyperresonance Palpation: (X) no fremitus Auscultation: (X) CTAP w/o W, R, or R Abnormals: [CVS]: Palpation: (X) PMI nondisplaced Auscultation: (X) no murmur, gallop, or rub Carotids: (X) nl intensity w/o bruit JVD: (X) no jugular distension Pulses: () 2+/= femoral & pedal pulses Edema: () no pedal edema Abnormals: - Decreased pedal pulses (non-detectable/faint) - Warmth and tenderness on the (R) lower extemity. - Increased swelling on the (R) lower extemity. [Neuro]: Orientation: (X) A&O to person, place, time CN: (X) CN II-XII intact. Sensory: () nl sensation throughout Reflexes: () 2++ and symmetrical throughout. Abnormals: Decreased sensation in the lower extremity (especially on the foot/ ankles) [Skin]: () no rashes, lesions, ulcers () nl turgor Abnormals: [Chest/Breast]: (X) nl inspection & palpation [Lymph Nodes]: (X) no axillary, inguinal, cervical, or submandibular LAD. [Psych]: (X) nl cognition () MMSE (not tested) (X) nl mood and affect Abnormals: [MSK]: Inspection ROM Strength Tone (X if normal) Abnormals Upper Extremity Lower Extremity Rash, Decreased Pulses, [Gait]: () nl gait and station Abnormal: - Pt is unable to walk and is bed bound. Results Results: Laboratory Tests 01/08/17 0705: Anion Gap 8, Estimated GFR 58 L, BUN/Creatinine Ratio 15.0, PT 23.2 H, INR 2.23 H, CBC w Diff NO MAN DIFF REQ, RBC 3.65 L, MCV 92.6, MCH 30.2, RDW 15.3 H, MPV 9.2, Gran % 69.6, Lymphocytes % 19.6 L, Monocytes % 7.7, Eosinophils % 2.8, Basophils % 0.3, Absolute Granulocytes 5.7, Absolute Lymphocytes 1.6, Absolute Monocytes 0.6, Absolute Eosinophils 0.2, Absolute Basophils 0, PUBS MCHC 32.6 L, Random Vancomycin 6.5 01/07/17 1210: ESR Westergren 103 H 01/07/17 1129: Anion Gap 10, Estimated GFR 53 L, BUN/Creatinine Ratio 17.7, Glucose 179 H, Lactic Acid 1.4, Calcium 9.1, Total Bilirubin 0.5, AST 22, ALT 30, Alkaline Phosphatase 80, Total Protein 7.1, Albumin 3.4 L, Globulin 3.7, Albumin/ Globulin Ratio 0.9 L, PT 22.2 H, INR 2.13 H, CBC w Diff NO MAN DIFF REQ, RBC 4.11 L, MCV 91.8, MCH 30.6, RDW 15.3 H, MPV 9.3, Gran % 76.7 H, Lymphocytes % 15.2 L, Monocytes % 6.1, Eosinophils % 1.5, Basophils % 0.5, Absolute Granulocytes 6.6 H, Absolute Lymphocytes 1.3, Absolute Monocytes 0.5, Absolute Eosinophils 0.1, Absolute Basophils 0, PUBS MCHC 33.4 Microbiology 01/07 1216 BLOOD: Blood Culture - RECD 01/07 1129 BLOOD: Blood Culture - RECD Assessment/Plan Assessment: Mr. Bentley is an 81 y/o male BIBA for evaluation of chronic ulcer w/ acute findings on the (R) lower extremity (R ankle/foot - lateral aspect and medial aspect). The pt had been dressing the wound and cared for by SOPHIA miller which was in place for approximately 20 weeks (changed out 1x a week). The pt had no palpable pulses bilaterally in the lower extremity (pedal). Based on the purulent nature and chronicity of the ulcer it is likely diabetic foot ulcer due to the pts past history of insulin dependent diabetes mellitus w/ peripheral arterial disease components complicating the healing process vs. Osteomyelitis of the bone (r/o based on imaging due to no evidence of cortical destruction to suggest osteomyelitis in the foot/ankle) vs. Physical injury (r/o based on the pts history) vs. Thromboangiitis obliterans (r/o based on pts history PAD, clots in the lower extremity, diabetes, and the pt having stopped smoking years ago. The pt also reports no upper extremity distal findings that correlate to the sx of Thromboangiitis obliterans.) Plan: Problem #1: Ulcerations + Erythema + Tenderness of (R) lower extemity (foot/ ankle) - Malodourus + mildly purulant ulcerations are seen on the (R) lateral and medial aspects of the lower extremity (foot/ankle) w/ warmth and visible swelling of the (R) Lower extremity in contrast to the (L) lower extremity. - Likley due to diabetic processes + peripheral vascular disease - Monitor the patient's sugar serially. - Clean/dress the wound every day to prevent infection. - Culture ulcerated region to identify any infectious causes. - Endocrinology consult for diabetic. - Start abx (Vancomycin IV). - Angiography and Ultrasound of the leg is beneficial to verify extent of disease. - Podiatry consult (pt was seen by podiatry and was set for OR on Tuesday (01/10) for debridment. Problem #2: Diabetes Mellitus - Continue the pt on home sliding scale insulin. - Monitor HgbA1C and fingerstick sugar levels. - Endocrinology consult is advised. Problem #3: Bilateral Lower Extremity Edema - Continue pts diuretic routine --> Bumex - Monitor BEP Pt is on DVT proxphylaxis of Warfarin which was tapered down and started on Heparin due to OR procedure scheduled for 01/10.
[2017-01-08 15:37] VITALS: BP 130/78
--- NOTE | 2017-01-08 15:46 | Event Note ---
Event Note Event Note: Pateint is going to OR on Tuesday for Rt. foot angiography and debridement, will hold coumadin and start the patient on heparin ggt. F/U INR at am
--- NOTE | 2017-01-08 16:15 | ULTRASOUND REPORT ---
EXAMINATION: COLOR-FLOW DUPLEX IMAGING OF THE BILATERAL LOWER EXTREMITY ARTERIAL SYSTEM VELOCITY MEASUREMENTS THROUGHOUT THE FEMORAL ARTERIES. CLINICAL INFORMATION: The patient is an 79 year-old man with right lower extremity cellulitis and a nonhealing wound. RIGHT FEMORAL RUNOFF VELOCITIES: The right common femoral artery peak systolic velocity is 105 cm/s, with monophasic waveform. The right profunda femoral artery peak systolic velocity is 46 cm/s, with monophasic waveform. The right proximal superficial femoral artery peak systolic velocity is 79 cm/s, with monophasic waveform. The right mid superficial femoral artery peak systolic velocity is 110 cm/s, with monophasic waveform. The right distal superficial femoral artery peak systolic velocity is 92 cm/s, with monophasic waveform. The upper right popliteal artery peak systolic velocity is 39 cm/s, with monophasic waveform. A mid right popliteal artery endovascular stent is seen. The distal right popliteal artery peak systolic velocity is 139 cm/s, with monophasic waveform. The right posterior tibial artery peak systolic velocity is 33 cm/s, with monophasic waveform. The right anterior tibial artery peak systolic velocity is 65 cm/s, with monophasic waveform. LEFT FEMORAL RUNOFF VELOCITIES: The left common femoral artery peak systolic velocity is 72 cm/s, with biphasic waveform. The left profunda femoral artery peak systolic velocity is 49 cm/s, with triphasic waveform. The left proximal superficial femoral artery peak systolic velocity is 106 cm/s, with biphasic waveform. The left mid superficial femoral artery peak systolic velocity is 77 cm/s, with biphasic waveform. The left distal superficial femoral artery peak systolic velocity is 181 cm/s, with biphasic waveform. The left popliteal artery peak systolic velocity is 77 cm/s, with biphasic waveform. The left posterior tibial artery peak systolic velocity 75 cm/s, with biphasic waveform. The left anterior tibial artery peak systolic velocity is 84 cm/s, with biphasic waveform. The left dorsalis pedis artery peak systolic velocity is 36 cm/s, with monophasic waveform. IMPRESSION: 1. An endovascular stent is seen within the mid right popliteal artery. There is peak systolic velocity elevation within the distal right popliteal artery distal to the stent, consistent with hemodynamically significant stenosis. Extensive right lower extremity monophasic waveforms are seen. 2. There is a hemodynamically significant stenosis of the distal left superficial femoral artery. 3. If clinically indicated, these findings can be more fully evaluated with CTA or MRA.
[2017-01-08 21:48] VITALS: BP 136/78
[2017-01-09 01:43] LABS: PTT 47 SEC (25-37)
[2017-01-09 06:00] VITALS: BP 120/78
[2017-01-09 09:03] LABS: PT 22.4 SEC (9.4-12.5)
[2017-01-09 09:21] LABS: PTT 101 SEC (25-37)
--- NOTE | 2017-01-09 10:41 | PN- Housestaff ---
Subjective Follow-up For: PVD Osteomyelitis Subjective: Patient was tessa nd examined this morning, vital are stable, no overnight events. Patient reported that his bilateral leg pain is controlled with pain medication Review of Systems Constitutional: Reports: see HPI. Objective Last 24 Hrs of Vital Signs/I&O Vital Signs Date Time Temp Pulse Resp B/P Pulse O2 O2 Flow FiO2 Ox Delivery Rate 01/09 0848 74 14 130/60 01/09 0600 98.6 63 18 120/78 93 Room Air 01/08 2148 99.9 64 18 136/78 93 Room Air 01/08 2106 67 122/64 01/08 1537 98.6 63 20 130/78 96 Intake & Output 01/09 1600 01/09 0800 01/09 0000 Intake Total 250 550 Output Total 725 300 Balance -475 250 Intake, Oral 250 550 Output, Urine 725 300 Patient 106.594 kg Weight Physical Exam General Appearance: Alert, Oriented X3, Cooperative, No Acute Distress Skin: No Rashes, No Breakdown, No Significant Lesion HEENT: Atraumatic, PERRLA, EOMI, Mucous Membr. moist/pink Cardiovascular: Regular Rate, Normal S1, Normal S2, No Murmurs Lungs: Clear to Auscultation, Normal Air Movement Abdomen: Normal Bowel Sounds, Soft, No Tenderness Neurological: Normal Speech, Strength at 5/5 X4 Ext, Normal Tone, Sensation Intact, Cranial Nerves 3-12 NL, Reflexes 2+ Extremities: No Clubbing, No Cyanosis, No Edema, Normal Pulses Assessment/Plan Assessment: Assessment: This is an 81-year-old male who presented with questionable cellulitis of the lower right ankle. Non Healing ulcer due to venous insufficiency, chronic stasis and history of diabetes. Patient was seen by [employer] in ED. Will need to be taken to the OR for an I and D. In the mean time, we will begin the patient on Antibiotics, Vancomycin. Check vancomycin level Q48. Patient was dosed with vancomycin based on vancomycin random level today 01/09/17 Wound care consult in am. Keep foot elevated. Patient is going to OR vascular surgery tomorrow morning based on Dr. Machuca note, patient was made nothing by mouth at midnight History of PVD Consider vascular consultation in am. May riquire additional imaging vs assessment of patency of the lower extremities. History of right lower extremity bilateral clots. Patient denies any family history of previous blood disorders. Continue warfarin on a daily basis 5 mg. INR on presentation was 2.01. Patient is on heparin drip currently Lower extremity edema. Patient is currently on Bumex again 1 mg daily. Dose is currently held due to elevated creatinine. Repeat BeP in am, consider restarting. Diabetes mellitus Begin the patient on sliding scale insulin. Hemoglobin A1c for long-term glycemic control. Obtain endocrinology consult if warranted. Diet Consistent carbohydrate diet, nothing by mouth at midnight DVT prophylaxis Heparin drip CODE STATUS DNR/DNI Problem List: 1. Cellulitis of right lower extremity 2. Diabetes Pain Ratin Pain Location: Bilateral lower extremity Pain Goal: Pain 4 or less Pain Plan: Severe pain pathway Tomorrow's Labs & Rationales: CBC, CMP
--- NOTE | 2017-01-09 10:42 | PN- Att Addend ---
Attending Addendum Attending Brief Note Attending MD Statement: examined this patient, discuss w/resident/PA/CHRONIC MANAGER, agreed w/resident/PA/CHRONIC MANAGER, reviewed EMR data (avail) Attending Assessment/Plan: Patient seen and examined. Plan of care discussed with the medical team and the patient. Available lab work and radiology test reports were reviewed. Patient has been afebrile with MAXIMUM TEMPERATURE 99.9 and currently comfortable. Complains of for moderate left knee and leg pain. Denies any fever chills or chest pains. Otherwise vital signs stable. Chest exam is clear abdomen soft nontender. Legs do not show any edema. WBC count is normal and chemistry labs are within normal limits. INR is 2.15. Her blood cultures are negative. Plans to continue vancomycin. Patient will be taken operation theater next week for debridement by Dr. Machuca. Continue warfarin and recheck INR. No need to check daily CBCs and chemistry labs. I offered patient to take Tylenol for left knee pain however he does not want to take any pain medicines.
--- NOTE | 2017-01-09 11:11 | PN- Podiatry ---
Subjective Subjective: Patient seen at bedside with no acute complaints. Patient denies nausea vomiting fever chills. Patient denies right foot pain. Objective Vital Signs and I&Os Vital Signs Date Time Temp Pulse Resp B/P Pulse O2 O2 Flow FiO2 Ox Delivery Rate 01/09 0848 74 14 130/60 01/09 0600 98.6 63 18 120/78 93 Room Air 01/08 2148 99.9 64 18 136/78 93 Room Air 01/08 2106 67 122/64 01/08 1537 98.6 63 20 130/78 96 Intake & Output 01/09 1600 01/09 0800 01/09 0000 01/08 1600 01/08 0800 01/08 0000 Intake Total 188 105 3338 500 500 Output Total 067 117 0736 500 Balance -475 250 -1200 0 500 Intake, IV 500 Intake, Oral 250 550 600 500 500 Output, Urine 772 021 6810 500 Patient 235 lb 240 lb Weight Physical Exam: . No strikethrough identified. No pain with deep palpation bilateral lower extremities. Weight Assessment/Plan Assessment/Plan Cellulitis and nonhealing ulcer right foot. Patient to the OR tomorrow with vascular. We will follow with washout and wound VAC right foot. Attending MD Review Statement Attending Statement Attending MD Statement: examined this patient
[2017-01-09 15:23] VITALS: BP 120/80
[2017-01-09 16:27] LABS: PTT 50 SEC (25-37)
[2017-01-09 22:47] VITALS: BP 128/80
[2017-01-10 00:45] LABS: PTT 54 SEC (25-37)
[2017-01-10 06:01] VITALS: BP 118/60
--- NOTE | 2017-01-10 07:31 | PN- Housestaff ---
WILMER SHAVER,[facility] 01/10/17 0731: Subjective Follow-up For: PVD Osteomyelitis Subjective: Patient was seen and examined this morning. He reports no active issues. He does mention that he is tried owing to the multiple inturruptions overnight. He denies any fever, shills, nausea or vomiting. He currently does not endorse any pain. He is NPO for an upcoming procedure scheduled later today. Review of Systems Constitutional: Reports: see HPI. Objective Last 24 Hrs of Vital Signs/I&O Vital Signs Date Time Temp Pulse Resp B/P Pulse O2 O2 Flow FiO2 Ox Delivery Rate 01/10 0852 85 130/72 01/10 0601 99.5 88 18 118/60 94 Room Air 01/09 2247 99.2 83 19 128/80 93 Room Air 01/09 2231 118/76 01/09 1523 98.5 78 20 120/80 93 Intake & Output 01/10 1600 01/10 0800 01/10 0000 Intake Total 207.6 692 Output Total 650 800 Balance -442.4 -108 Intake, IV 207.6 242 Intake, Oral 450 Number 0 Bowel Movements Output, Urine 650 800 Patient 106.594 kg Weight Physical Exam General Appearance: Alert, Oriented X3, Cooperative Cardiovascular: Regular Rate, Normal S1, Normal S2 Lungs: Clear to Auscultation Abdomen: Normal Bowel Sounds, Soft, No Tenderness Neurological: Normal Speech Current Medications: Current Medications Sig/Fabricio Start time Last Medication Dose Route Stop Time Status Admin Allopurinol 300 MG QPM 01/07 2200 AC 01/09 PO 2230 Atorvastatin Calcium 10 MG 1700 01/07 1700 AC 01/09 PO 1632 Bumetanide 1 MG DAILY 01/08 1017 AC 01/09 PO 1047 Dextrose/Sodium 1,000 ML Q13H 01/10 0900 UNVr Chloride IV Doxazosin Mesylate 2 MG QPM 01/07 2200 AC 01/09 PO 2231 Gabapentin 300 MG TID 01/07 1601 AC 01/10 PO 0852 Heparin Sodium 4,264 UNIT ONCE ONE 01/10 0115 DC 01/10 (Porcine) IV 01/10 0116 0118 Heparin Sodium 4,264 UNIT ONE ONE 01/09 1730 DC 01/09 (Porcine) IV 01/09 1731 1730 Heparin Sodium 25,000 UNIT Q24H 01/08 1600 DC 01/10 (Porcine) IV 01/10 0700 0123 Sodium Chloride 500 ML Insulin Aspart 0 TIDAC 01/07 1700 DC 01/09 SC 1711 Insulin Detemir 25 UNITS BID 01/07 2200 AC 01/09 SC 2231 Insulin Human Regular 0 Q6 01/10 0036 AC 01/10 SC 0557 Metoprolol Tartrate 25 MG BID 01/07 2200 AC 01/10 PO 0852 Vancomycin HCl 1,500 MG ONCE ONE 01/09 1100 DC 01/09 Dextrose/Water 500 ML IV 01/09 1259 1245 Last 24 Hrs of Lab/Maikel Results Last 24 Hrs of Labs/Mics: Laboratory Tests 01/10/17 0705: Anion Gap 11, Estimated GFR 58 L, BUN/Creatinine Ratio 17.5, CBC w Diff Pending , WBC Pending, RBC Pending, Hgb Pending, Hct Pending, MCV Pending, MCH Pending, RDW Pending, Plt Count Pending, MPV Pending, PUBS MCHC Pending 01/10/17 0010: APTT 54 H 01/09/17 1535: APTT 50 H Assessment/Plan Assessment: This is an 81-year-old male who presented with questionable cellulitis of the lower right ankle. Non Healing ulcer due to venous insufficiency, chronic stasis and history of diabetes. Patient was seen by supervisor counseling and guidance in ED. Will need to be taken to the OR for an I and D. In the mean time, we will begin the patient on Antibiotics, Vancomycin. Dose 1, 500 mg. Check vancomycin level Q48. Last Vancomycin level: 10.3 Wound care consult in am. Keep foot elevated. History of PVD Consider vascular consultation in am. Arterial Ultrasound has been ordered following surgical recomendations. Patient will be taken for Arteriogram on today. History of right lower extremity bilateral clots. Patient currently on a Heparin Drip Patient denies any family history of previous blood disorders. Continue warfarin on a daily basis 5 mg. INR on presentation was 2.01. Lower extremity edema. Patient is currently on Bumex again 1 mg daily. We started his Bumex on 01/08/2017. Repeat BEP in AM. Diabetes mellitus Continue the patient on sliding scale insulin. Hemoglobin A1c for long-term glycemic control. Obtain endocrinology consult if warranted. Diet Consistent carbohydrate diet--> NPO for now DVT prophylaxis Warfarin--> Started on an IV heparin drip due to OR on 01/10, Jaisonitinue IV heparin CODE STATUS DNR/DNI Problem List: 1. Cellulitis of right lower extremity 2. Popliteal aneurysm 3. DVT prophylaxis 4. Hx of deep venous thrombosis 5. HTN (hypertension) 6. Gout 7. HLD (hyperlipidemia) 8. Diabetes 9. Foot ulcer Pain Ratin Pain Location: INR: Monirot Anticoaguation Vancomycin level: for antibiotic Dosing Pain Goal: Remain pain free Pain Plan: tylenol prn Tomorrow's Labs & Rationales: NINA DIALLO MD,MILTON 01/10/17 1548: Attending MD Review Statement Attending Statement Attending MD Statement: examined this patient, discuss w/resident/PA/IT SECURITY PROJECT MANAGER, agreed w/resident/PA/IT SECURITY PROJECT MANAGER, reviewed EMR data (avail), discussed with nursing, discussed with case mgmt, reviewed images, amended to note Attending Assessment/Plan: Patient seen and examined, he was seen at PACU where he was transferred after he was done with his surgery with Dr. Machuca as well as Dr. Kathleen. Currently denies any complaints. Vital Signs Date Time Temp Pulse Resp B/P Pulse O2 O2 Flow FiO2 Ox Delivery Rate 01/10 0852 85 130/72 01/10 0601 99.5 88 18 118/60 94 Room Air 01/09 2247 99.2 83 19 128/80 93 Room Air 01/09 2231 118/76 on exam; aox3, nad cv; s1,s2, rrr resp; clear abd; soft, nt, bs+ ext; no edema. Laboratory Tests 01/10 01/10 01/10 1011 0705 0010 Chemistry Sodium (137 - 145 mmol/L) 138 Potassium (3.5 - 5.1 mmol/L) 3.6 Chloride (98 - 107 mmol/L) 100 Carbon Dioxide (22 - 30 mmol/L) 26 Anion Gap (5 - 16) 11 BUN (9 - 20 mg/dL) 21 H Creatinine (0.7 - 1.2 mg/dL) 1.2 Estimated GFR (>60 ml/min) 58 L BUN/Creatinine Ratio (7 - 25 %) 17.5 Coagulation PT Cancelled INR Cancelled APTT (25 - 37 SEC) 54 H Hematology CBC w Diff NO MAN DIFF REQ WBC (4.8 - 10.8 /CUMM) 8.8 RBC (4.70 - 6.10 /CUMM) 3.68 L Hgb (14.0 - 18.0 G/DL) 11.2 L Hct (42 - 52 %) 34.2 L MCV (80.0 - 94.0 FL) 92.8 MCH (27.0 - 31.0 PG) 30.4 RDW (11.5 - 14.5 %) 15.6 H Plt Count (130 - 400 /CUMM) 236 MPV (7.4 - 10.4 FL) 9.2 Gran % (42.2 - 75.2 %) 66.8 Lymphocytes % (20.5 - 51.1 %) 21.7 Monocytes % (1.7 - 9.3 %) 7.0 Eosinophils % (0 - 5 %) 4.0 Basophils % (0.0 - 2.0 %) 0.5 Absolute Granulocytes (1.4 - 6.5 /CUMM) 5.9 Absolute Lymphocytes (1.2 - 3.4 /CUMM) 1.9 Absolute Monocytes (0.10 - 0.60 /CUMM) 0.6 Absolute Eosinophils (0.0 - 0.7 /CUMM) 0.3 Absolute Basophils (0.0 - 0.2 /CUMM) 0 PUBS MCHC (33.0 - 37.0 G/DL) 32.8 L A/P; 81 y/o M with pmh sig for htn, hpl, diabetes, ch right foot wounds who is presenting with non healing infected right heel and ankle wound. Status post debridement of the right foot with podiatry as well as angiogram and angioplasty with vascular surgery today. We'll continue the vancomycin and I have confirmed this with Dr. Machuca. Vascular surgery is recommending keeping the patient on anticoagulation. Dr. Machuca plans to take him to or again in the next couple of days therefore at this point we will not start him on any noval agents but will keep him on IV heparin drip. IV heparin drip will be discontinued prior to his next procedure. Blood sugars are running in acceptable range on current insulin regimen. Continue all other current medications. DVt Px; Hep gtt.
[2017-01-10 08:50] LABS: ABSOLUTE BASOPHIL COUNT 0 /CUMM (0.0-0.2); ABSOLUTE EOSINOPHIL COUNT 0.3 /CUMM (0.0-0.7); ABSOLUTE GRANULOCYTE CT 5.9 /CUMM (1.4-6.5); ABSOLUTE LYMPH COUNT 1.9 /CUMM (1.2-3.4); ABSOLUTE MONOCYTE COUNT 0.6 /CUMM (0.10-0.60); BASOPHIL % 0.5 % (0.0-2.0); GRANULOCYTE % 66.8 % (42.2-75.2); HEMATOCRIT 34.2 % (42-52); MEAN CORPUSCULAR HGB 30.4 PG (27.0-31.0); MEAN CORPUSCULAR HGB CONC 32.8 G/DL (33.0-37.0); MEAN CORPUSCULAR VOLUME 92.8 FL (80.0-94.0); MEAN PLATELET VOLUME 9.2 FL (7.4-10.4); PLATELET COUNT 236 /CUMM (130-400); RBC DISTRIBUTION WIDTH 15.6 % (11.5-14.5); RED BLOOD CELL CT 3.68 /CUMM (4.70-6.10); WHITE BLOOD CELL COUNT 8.8 /CUMM (4.8-10.8)
--- NOTE | 2017-01-10 13:16 | NUR ---
0930- PT LEFT FLOOR VIA STRETCHER FOR OR
--- NOTE | 2017-01-10 16:01 | RADIOLOGY REPORT ---
EXAMINATION: XR FEMUR, RIGHT CLINICAL INFORMATION: Peripheral vascular disease. Arteriogram and angioplasty of right SFA and popliteal artery was performed. COMPARISON: Lower extremity arterial Doppler from 01/08/2017. TECHNIQUE: Fluoroscopic imaging assistance was provided to the operating room. Multiple spot fluoroscopy images were acquired during aortography and peripheral vessel angiography performed by Dr. Arteaga. FINDINGS: Fluoroscopic imaging assistance was provided to the operating room. Please refer to the operative report regarding the procedure indications, intraoperative findings and interventions performed. FLUOROSCOPY TIME: 22 minutes, 8 seconds. IMPRESSION: Fluoroscopic imaging assistance was provided to the operating room.
[2017-01-10 17:30] VITALS: BP 124/74
--- NOTE | 2017-01-10 17:31 | NUR ---
7217- PT RETURNED TO FLOOR FROM PACU. REPORT REC'D FROM COURT HEAD COACH. PT HAD R LEG ANGIOGRAM AND ANGIOPLASTY WITH DR. LOO AND R HEEL I&D WITH DR SCHERER. VSS UPON RETURN TO FLOOR. DRESSING C,D,I. +CMS TO R LE. DRESSING IN PLACE TO L GROIN, C,D,I AND R FOOT, C,D,I. PT DENIES PAIN TO ANY AREA.
--- NOTE | 2017-01-10 17:33 | Operative Report ---
See Addendum Operative/Inv Procedure Report Surgery Date: 01/10/17 Name of Procedure: - Ultrasound-guided left common femoral artery access -Aortogram -Third order right leg angiogram -Angioplasty of right popliteal and right superficial femoral artery Pre-Operative Diagnosis: Right heel gangrene Post-Operative Diagnosis: SAME Estimated Blood Loss: scant Surgeon/Assignment Officer: DARLIN RIOS MD Anesthesia: laryngeal mask airway Operative/Procedure Note Note: Patient is a 82-year-old gentleman who about 2 years ago I placed a right popliteal Viahaban stents for partially thrombosed right popliteal aneurysm. He presented to the hospital stay few days ago with gangrenous right heel wound. Right lower 70 ultrasound showed stenosis in the distal SFA with patent stent. The patient was scheduled for right leg angiogram with possible intervention. The nature of the procedure including its possible complications including but not limited to bleeding, infection, blood clots, loss of limb, and need for re- intervention were discussed. An informed consent was obtained. The patient was taken to the operating room and placed supine on the table. A timeout was called according to protocol. After satisfactory induction of anesthesia, the patient was prepped and draped in standard surgical fashion. Using an ultrasound, left common femoral artery was accessed using micropuncture technique. A Bentson wire was advanced into the aorta under direct fluoroscopic guidance. The micropuncture sheath was exchanged with a short 5 Norwegian sheath. Then an Omni flush catheter was advanced over the wire and placed into the abdominal aorta. From this position, an aortogram was performed with findings outlined below. Then with aid of a glide wire and Omni Flush catheter, right iliac artery system was selected. There was tortuosity in the fascia iliac artery. The Omni flush catheter was exchanged with a 5 Norwegian glide catheter. The glide catheter was advanced over the wire and placed into the proximal right common femoral artery. From this position, right leg angiogram was performed with findings outlined below. Then the wire was advanced into the distal SFA. The glide catheter was advanced into the SFA. From this position, right leg angiogram was performed with findings outlined below. The popliteal stenosis just distal to the distal segment of the stent was noted. 8000 units of heparin was given. The 5 Norwegian sheath was exchanged with a 55 cm 5 Norwegian Antonio sheath. I was able to pass the wire into the popliteal artery. The popliteal artery just distal to the stent was then angioplastied with 5 x 40 mm balloon. The other 2 lesions in the mid and proximal SFA were angioplastied with 6 x 40 mm balloon. Post angioplasty angiogram was performed through the sheath that showed resolution of the stenoses. Wires and catheters were removed. The Antonio sheath was exchanged with a short 5 Norwegian sheath. The puncture site was closed with Exoseal device. 2 minutes of manual pressure was applied after the closure. Sterile dressing was then applied. Dr. Machuca was going to perform I&D and cleaning of the right heel. For this part of the operation, please refer to his notes. Radiographic findings: -Patent aorta with no significant disease. -Patent bilateral common iliac, internal iliac, and external iliac arteries with no significant disease. Right external iliac arteries are tortuous. -Right common femoral and profunda femoris with no significant disease. -Right SFA is patent with diffuse [id number] disease. There are 2 short segment of stenosis in the proximal segment and just above the stent in the distal segment of the SFA which showed resolution of the stenosis post angioplasty. -The popliteal artery is patent with stenosis just distal to the stent which responded to angioplasty. -Tibioperitoneal trunk is patent. There is three-vessel runoff to the foot.
--- NOTE | 2017-01-10 17:44 | Operative Report ---
Operative/Inv Procedure Report Surgery Date: 01/10/17 Name of Procedure: 1 open incision and drainage deep to the D fashion with exposure of the flexor tendon and tendon sheath multiple sites right foot 2 intraoperative administration of ankle block anesthesia 3 excisional debridement Pre-Operative Diagnosis: 1 open necrotic wound right foot 2 peripheral arterial disease Post-Operative Diagnosis: The same Estimated Blood Loss: less than 50ml Surgeon/Rn Documentation: JUAN SCHERER DPM Anesthesia: moderate sedation, block Operative/Procedure Note Note: After obtaining informed consent the patient was brought to the operating room and placed on the operating table in the supine position. The patient was then securely fastened to the operating table utilizing safety belt. General endotracheal intubation was then administered and the procedure was begun with the vascular service performing angiography and angioplasty of the right lower extremity. Following this, the right foot and ankle were scrubbed prepped and draped in usual aseptic manner. Attention was directed lateral and inferior margin of the right heel, where a large full-thickness necrotic was identified. A 15 blade was then utilized sharply revised skin margins. The dissection was then carried down deep to the D fashion with exposure of the flexor tendon and tendon sheath multiple sites, both proximally and distally. All necrotic nonviable infected tissue sharply evacuated from the wound bed. Nipple was then irrigated with 3 L of normal sterile saline infusion 50,000 units of bacitracin. This, the foot was redraped and the surgeon's top gloves were changed clean gloves. Any bleeding vessels identified were cauterized or ligated as encountered. The foot was then packed with wet-to-dry dressing followed by EBD pads Kerlix and an Catarino wrap. Patient was noted to tolerate both procedure and anesthesia well and the patient was transported from the operating room to recovery via signs stable.
--- NOTE | 2017-01-10 20:10 | Event Note ---
Event Note Event Note: S: Career Coach Anticoagulation S/P wound Debridement, Arteriogram and Angioplasty on 01/10/2017. B/A: Spoke with the surgical PA Nate who recomended that the patient be started on Eliquis 2.5 mg BID. Given the fact that this patient might be taken in to the OR over the next 24 -48 hours, we debated what the best anticoagulant would be. R: We will continue the patient on Hepain [address]162 for now, owing to the fact that he will likley be taken to the OR for a revision with Dr Galvez. Prior to discharge a novel anticoagulant may be considered.
--- NOTE | 2017-01-10 20:16 | Patient Discharge Instructions ---
Discharge Instructions General Discharge Information You were seen/treated for: Fever, nausea, vomiting, chills, weakness, increased generalized edema. Palpitations. Chest pain. Shortness of breath. Pain from site. Detachment of the wound Vac. If you have any adverse reactions from any of the medications prescribed please inform your primary care physician and you may be required to come back to the emergency department. Thank you for allowing us to be part of your care. You had these procedures: Open incision and drainage deep to the D fashion with exposure of the flexor tendon and tendon sheath multiple sites right foot. Aortogram Third order right leg angiogram Angioplasty of right popliteal and right superficial femoral artery Special Instructions: Please follow up with your PCP in one week. Please inform Dr Mattson about the medication changes we have made. Please follow up with Dr Galvez within one week. Of discharge Please check your INR weekly Diet Continue normal diet: Yes Activity Full Activity/No Limits: No Activity Self Limited: Yes (As Tolerated) Acute Coronary Syndrome Inclusion Criteria At DC or during hospital stay patient has or had the following: ACS DIAGNOSIS No Discharge Core Measures Meds if any: Prescribed or Continued at Discharge Meds if any: NOT Prescribed or Continued at Discharge Congestive Heart Failure Inclusion Criteria At DC or during hospital stay patient has or had the following: CHF DIAGNOSIS No Discharge Core Measures Meds if any: Prescribed or Continued at Discharge Meds if any: NOT Prescribed or Continued at Discharge Cerebrovascular accident Inclusion Criteria At DC or during hospital stay patient has or had the following: CVA/TIA Diagnosis No Discharge Core Measures Meds if any: Prescribed or Continued at Discharge Meds if any: NOT Prescribed or Continued at Discharge Venous thromboembolism Inclusion Criteria VTE Diagnosis No VTE Type NONE VTE Confirmed by (Test) NONE Discharge Core Measures - Per Current guidelines, there needs to be overlap - treatment for the first 5 days of Warfarin therapy. - If discharged on Warfarin prior to 5 days of - overlap therapy, the patient will need to be - assessed for post discharge needs including - *Post discharge parental anticoagulation - *Warfarin and/or parental anticoagulation education - *Follow up date to check INR post discharge At least 5 days overlap therapy as Inpatient No Meds if any: Prescribed or Continued at Discharge Note: Overlap Therapy is Warfarin and Anticoagulant Meds if any: NOT Prescribed or Continued at Discharge
[2017-01-10 23:31] VITALS: BP 110/60
[2017-01-11 04:21] LABS: PTT 31 SEC (25-37)
--- NOTE | 2017-01-11 07:23 | PN- Housestaff ---
[facility]22: Subjective Follow-up For: Right heel nonhealing ulcer peripheral vascular disease Cellulitis Subjective: Afebrile, no acute overnight events reported, laying on bed looks relaxed and comfortable. Patient denies fever or chills. His pain is well controlled with the current regimen. Review of Systems Constitutional: Denies: chills, fever, malaise. Cardiovascular: Reports: no symptoms. Respiratory: Reports: no symptoms. Gastrointestinal: Reports: no symptoms. Genitourinary: Reports: no symptoms. Objective Last 24 Hrs of Vital Signs/I&O Vital Signs Date Time Temp Pulse Resp B/P Pulse O2 O2 Flow FiO2 Ox Delivery Rate 01/11 07 97.8 72 20 110/60 93 Room Air 01/10 2331 98.0 68 20 110/60 95 01/10 2106 122/78 01/10 2042 Room Air Room Air 01/10 2039 95 Room Air Room Air 01/10 1730 97.5 61 18 124/74 95 Room Air 01/10 0852 85 130/72 Intake & Output 01/11 1600 01/11 0800 01/11 0000 Intake Total 200 346 Output Total 400 1000 Balance -200 -654 Intake, IV 200 226 Intake, Oral 120 Output, Urine 400 1000 Physical Exam General Appearance: Alert, Oriented X3, Cooperative, No Acute Distress Skin: No Rashes HEENT: Atraumatic, PERRLA, EOMI, Mucous Membr. moist/pink Cardiovascular: Regular Rate, Normal S1, Normal S2, No Murmurs Lungs: decrease air-entry over lung b/l Abdomen: Soft, No Tenderness Neurological: Normal Speech Extremities: right foot is dressed and covered with bandage Current Medications: Current Medications Sig/Fabricio Start time Last Medication Dose Route Stop Time Status Admin Acetaminophen 1,000 MG .STK-MED ONE 01/10 1030 DC IV 01/10 1031 Allopurinol 300 MG QPM 01/07 2200 AC 01/10 PO 210 Apixaban 2.5 MG BID 01/10 2200 CAN PO Atorvastatin Calcium 10 MG 1700 01/07 1700 AC 01/10 PO 1919 Bumetanide 1 MG DAILY 01/08 1017 AC 01/09 PO 1047 Dextrose/Sodium 1,000 ML Q13H 01/10 0900 DC 01/10 Chloride IV 0911 Doxazosin Mesylate 2 MG QPM 01/07 2200 AC 01/10 PO 210 Fentanyl Citrate 100 MCG .STK-MED ONE 01/10 1029 DC IM 01/10 1030 Gabapentin 300 MG TID 01/07 1601 AC 01/10 PO 2106 Heparin Sodium 7,950 UNIT ONCE ONE 01/11 0430 DC 01/11 (Porcine) IV 01/11 0431 0509 Heparin Sodium 25,000 UNIT Q24H 01/10 2015 AC 01/10 (Porcine) IV 2128 Sodium Chloride 500 ML Heparin Sodium 25,000 UNIT Q24H 01/10 1800 CAN (Porcine) IV Sodium Chloride 500 ML Hydromorphone HCl 2 MG .STK-MED ONE 01/10 1423 DC IM 01/10 1424 Hydromorphone HCl 2 MG .STK-MED ONE 01/10 1029 DC IM 01/10 1030 Insulin Aspart 0 TIDAC 01/10 1700 AC 01/10 SC 1920 Insulin Detemir 25 UNITS BID 01/07 2200 AC 01/10 SC 2107 Insulin Human Regular 0 Q6 01/10 0036 DC 01/10 SC 0557 Meperidine HCl 50 MG .STK-MED ONE 01/10 1423 DC IM 01/10 1424 Metoprolol Tartrate 25 MG BID 01/07 2200 AC 01/10 PO 2106 Midazolam HCl 4 MG .STK-MED ONE 01/10 1030 DC IM 01/10 1031 Patient Medication 1 ED .STK-MED ONE 01/10 1415 DC Teaching ED 01/10 1416 Vancomycin HCl 1,500 MG ONCE ONE 01/10 1600 DC 01/10 Dextrose/Water 500 ML IV 01/10 1759 1919 Last 24 Hrs of Lab/Maikel Results Last 24 Hrs of Labs/Mics: Laboratory Tests 01/11/17 0734: PT Pending, INR Pending, Vancomycin Trough Pending 01/11/17 0330: APTT 31 01/10/17 1011: PT Cancelled, INR Cancelled Microbiology 01/10 1130 URINE ROUT: Urine Culture - RECD Assessment/Plan Assessment: This is an 81-year-old male who presented with questionable cellulitis of the lower right ankle. Non Healing ulcer and History of PVD Excisional debridement was done yesterday, Ultrasound showed multiple arterial stenosis (explain the nonhealing ulcer), Angioplasty of right popliteal and right superficial femoral artery was done yesterday. In the mean time, we will continue patient on Vancomycin as per Podiatric Surgeon. * Continue vancomycin 1 g daily * Keep foot elevated. * We will follow vascular recommendation History of DVT Patient is on warfarin at home. Warfarin is on hold he is currently on heparin drip for possible surgery. INR today is 1.54 * Continue heparin drip #Diabetes mellitus Patient was mildly hyperglycemic throughout the last 2 days, patient receiving vancomycin in dextrose and this can explain his uncontrolled hyperglycemia. * We will increasing his sliding scale coverage * We will increase his insulin Levemir to 30 mg twice a day Diet consistent carbohydrate diet DVT Ppx on IV heparin drip (no warfarin for possible surgery) DNR/DNI Problem List: 1. Foot ulcer Pain Ratin Pain Location: right heel Pain Goal: Remain pain free Pain Plan: see A&P Tomorrow's Labs & Rationales: see A&P WANDY SHAVER,CHIO 01/11/17 0945: Attending MD Review Statement Attending Statement Attending MD Statement: examined this patient, discuss w/resident/PA/DRAG OUT WORKER, agreed w/resident/PA/DRAG OUT WORKER, reviewed EMR data (avail), discussed with nursing, amended to note Attending Assessment/Plan: Patient seen and examined. Lying comfortably in bed and not in acute distress. No issues overnight reported by nursing staff. Patient denies any complaints this morning. OR notes from procedure yesterday appreciated. His blood glucose levels have been running in the 200s to 300s. A.m. glucose levels 199 today. On examination surgical dressing noted over the right foot. Recommendations: -Continue anticoagulation with heparin infusion pending decision from the podiatry service regarding returning to the OR. -Blood glucose control currently not optimal. His vancomycin is mixed in dextrose solution. Would recommend increasing his sliding scale coverage to medium dose. Also patient is alert total of 60 units of Lantus at home. Would recommend increasing his Levemir to 30 units twice daily. -Cultures were not sent from the operating room. Recommend following up with the podiatry service regarding continued antibiotic therapy. No issues overnight reported by nursing staff. Patient denies any complaints this morning. OR notes from procedure yesterday appreciated. His blood glucose levels have been running in the 200s to 300s. A.m. glucose levels 199 today. On examination surgical dressing noted over the right foot. Recommendations: -Continue anticoagulation with heparin infusion pending decision from the podiatry service regarding returning to the OR. -Blood glucose control currently not optimal. His vancomycin is mixed in dextrose solution. Would recommend increasing his sliding scale coverage to medium dose. Also patient is alert total of 60 units of Lantus at home. Would recommend increasing his Levemir to 30 units twice daily. -Cultures were not sent from the operating room. Recommend following up with the podiatry service regarding continued antibiotic therapy.
[2017-01-11 07:27] VITALS: BP 110/60
[2017-01-11 08:59] LABS: PT 16.1 SEC (9.4-12.5)
[2017-01-11 15:26] LABS: PTT 81 SEC (25-37)
[2017-01-11 16:32] VITALS: BP 128/60
--- NOTE | 2017-01-11 18:17 | NUR ---
PATIENTS ACCUCHECK 420 AT 1700. WAS CALLED AND REPORT WAS GIVEN. GAVE PATIENT 12 UNITS OF NOVOLOG WITH DINNER
--- NOTE | 2017-01-11 19:24 | NUR ---
PATIENT SUGAR CHECKED 1900. ACCUCHECK WAS 390. PATIENT HAD ACCUCHECK OF 420 AT 1700.
--- NOTE | 2017-01-11 19:48 | NUR ---
PATIENT HAD PTT ORDERED AT 1030 PER HEPARIN DRIP PROTOCOL. PATIENT REQUIRED NEW IV LINE, BLOOD WORK SENT FROM IV STICK. CALL RECIEVED FROM LAB THAT SPECIMEN HEMOLIZED. PATIENT REQUIRED SECOND IV LINE. SPECIMEN SENT AND AGAIN HEMOLIZED. PATIENT REFUSING FURTHER REDRAW UNTIL SPOKE TO DOCTOR. DR GALARZA CALLED AND CAME TO DISCUSS WITH PATIENT. PATIENT AND DOCTOR AGREED ON 3 PM BLOOD DRAW. BLOOD DRAWN AND SENT TO LAB. PTT CAME BACK WITHIN NORMAL RANGE. PER DOCTOR MICHELL OK TO DO LABS AT [address] ALL ORDERS. AWARE THAT HEPARIN DRIP PROTOCOL WOULD BE DRAWN AT 3 AM.
[2017-01-11 21:12] VITALS: BP 140/60
[2017-01-12 05:32] LABS: ABSOLUTE BASOPHIL COUNT 0 /CUMM (0.0-0.2); ABSOLUTE EOSINOPHIL COUNT 0.3 /CUMM (0.0-0.7); ABSOLUTE GRANULOCYTE CT 4.2 /CUMM (1.4-6.5); ABSOLUTE MONOCYTE COUNT 0.6 /CUMM (0.10-0.60); BASOPHIL % 0.2 % (0.0-2.0); EOSINOPHIL % 4.6 % (0-5); GRANULOCYTE % 58.6 % (42.2-75.2); HEMATOCRIT 32.4 % (42-52); MEAN CORPUSCULAR HGB 30.5 PG (27.0-31.0); MEAN CORPUSCULAR HGB CONC 32.7 G/DL (33.0-37.0); MEAN CORPUSCULAR VOLUME 93.1 FL (80.0-94.0); MEAN PLATELET VOLUME 8.8 FL (7.4-10.4); PLATELET COUNT 225 /CUMM (130-400); RBC DISTRIBUTION WIDTH 16.1 % (11.5-14.5); RED BLOOD CELL CT 3.48 /CUMM (4.70-6.10); WHITE BLOOD CELL COUNT 7.2 /CUMM (4.8-10.8)
[2017-01-12 05:49] LABS: PTT 81 SEC (25-37)
[2017-01-12 06:37] VITALS: BP 134/78
--- NOTE | 2017-01-12 08:26 | PN- Housestaff ---
[facility] 0826: Subjective Follow-up For: Right heel nonhealing ulcer peripheral vascular disease Cellulitis Subjective: Afebrile, no acute overnight events reported, laying on bed looks relaxed and comfortable. Patient denies fever or chills. His pain is well controlled with the current regimen. He reported that he did not had a bowel movement for the last 4-5 days. He denies nausea, vomiting, abdominal or distention. He reported being able to pass gas. Patient is on IV heparin with PTT being in the therapeutic dose. Review of Systems Constitutional: Reports: see HPI. Denies: chills, diaphoresis, fever. Objective Last 24 Hrs of Vital Signs/I&O Vital Signs Date Time Temp Pulse Resp B/P Pulse O2 O2 Flow FiO2 Ox Delivery Rate 01/12 1413 99.0 96 20 106/70 92 Room Air 01/12 1017 75 102/56 01/12 0637 98.2 82 18 134/78 93 Room Air 01/11 2112 99.3 76 20 140/60 92 Room Air 01/11 2058 140/60 Intake & Output 01/12 1600 01/12 0800 01/12 0000 Intake Total 376 225 Output Total 609 689 0629 Balance -320 -630 -7262 Intake, IV 276 105 Intake, Oral 100 120 Number 0 Bowel Movements Output, Urine 355 242 1922 Physical Exam General Appearance: Alert, Oriented X3, Cooperative, No Acute Distress Skin: No Rashes HEENT: Atraumatic, PERRLA, EOMI, Mucous Membr. moist/pink Cardiovascular: Regular Rate, Normal S1, Normal S2, No Murmurs Lungs: Clear to Auscultation Abdomen: Soft, No Tenderness Neurological: Normal Speech Current Medications: Current Medications Sig/Fabricio Start time Last Medication Dose Route Stop Time Status Admin Allopurinol 300 MG QPM 01/07 2200 AC 01/11 PO 205 Atorvastatin Calcium 10 MG 1700 01/07 1700 AC 01/11 PO 164 Bisacodyl 10 MG .STK-MED ONE 01/[address] 01/12 1656 Bisacodyl 10 MG ONCE ONE 01/12 1015 DC 01/12 CT 01/12 1016 1029 Bumetanide 1 MG DAILY 01/08 1017 AC 01/12 PO 1017 Dextrose/Sodium 1,000 ML Q20H 01/13 0000 AC Chloride IV 01/13 1959 Doxazosin Mesylate 2 MG QPM 01/07 220 AC 01/11 PO 205 Gabapentin 300 MG TID 01/07 1601 AC 01/12 PO 1017 Heparin Sodium 25,000 UNIT Q24H 01/10 2015 AC 01/11 (Porcine) IV 2009 Sodium Chloride 500 ML Insulin Aspart 0 TIDAC 01/10 1700 AC 01/12 SC 1315 Insulin Detemir 30 UNITS BID 01/11 2200 AC 01/12 SC 1018 Magnesium Hydroxide 30 ML .STK-MED ONE 01/12 1655 DC PO 01/12 1656 Magnesium Hydroxide 30 ML AT BEDTIME PRN 01/12 1030 AC PO Magnesium Hydroxide 30 ML AT BEDTIME PRN 01/12 1030 AC PO Magnesium Hydroxide 30 ML ONE ONE 01/12 1015 DC 01/12 PO 01/12 1016 1029 Metoprolol Tartrate 25 MG BID 01/07 220 AC 01/12 PO 1017 Patient Medication 1 ED .STK-MED ONE 01/12 1339 IL Teaching ED 01/12 1340 Polyethylene Glycol 17 GM DAILY 01/11 1852 AC 01/12 PO 1017 Senna 187 MG AT BEDTIME 01/11 220 AC 01/11 PO 2054 Vancomycin HCl 1,500 MG Q24H 01/11 1900 AC 01/11 Dextrose/Water 250 ML IV 1859 Last 24 Hrs of Lab/Maikel Results Last 24 Hrs of Labs/Mics: Laboratory Tests 01/12/17 0500: Anion Gap 10, Estimated GFR 58 L, BUN/Creatinine Ratio 16.7, APTT 81 H, CBC w Diff NO MAN DIFF REQ, RBC 3.48 L, MCV 93.1, MCH 30.5, RDW 16.1 H, MPV 8.8, Gran % 58.6, Lymphocytes % 27.7, Monocytes % 8.9, Eosinophils % 4.6, Basophils % 0.2, Absolute Granulocytes 4.2, Absolute Lymphocytes 2.0, Absolute Monocytes 0.6 , Absolute Eosinophils 0.3, Absolute Basophils 0, PUBS MCHC 32.7 L Assessment/Plan Assessment: This is an 81-year-old male who presented with questionable cellulitis of the lower right ankle. Non Healing ulcer and History of PVD Excisional debridement was done 2 days ago, Ultrasound showed multiple arterial stenosis (explain the nonhealing ulcer), Angioplasty of right popliteal and right superficial femoral artery was done 2 days ago. In the mean time, we will continue patient on Vancomycin as per Podiatric Surgeon. Patient will be taking for I&D tomorrow * Continue vancomycin 1 g daily * Patient will be nothing by mouth starting midnight * We will start gentle fluids on him as he going to be nothing by mouth * Keep foot elevated. * We will follow vascular recommendation regards long-term anticoagulant History of DVT Patient is on warfarin at home. Warfarin is on hold he is currently on heparin drip for surgery. INR today is 1.54 * Continue heparin drip * We will contact vascular for long-term anticoagulation #Diabetes mellitus Patient was mildly hyperglycemic throughout the last 2 days, patient receiving vancomycin in dextrose and this can explain his uncontrolled hyperglycemia. * We will increasing his sliding scale coverage * We will increase his insulin Levemir to 30 mg twice a day Will be nothing by mouth starting midnight DVT Ppx on IV heparin drip (no warfarin for possible surgery) DNR/DNI Problem List: 1. Cellulitis of right lower extremity 2. Foot ulcer Pain Ratin Pain Location: Right foot Pain Goal: Remain pain free Pain Plan: See assessment and plan Tomorrow's Labs & Rationales: See assessment and plan YOEL SHAVER,MILTON 01/12/17 1239: Attending MD Review Statement Attending Statement Attending MD Statement: examined this patient, discuss w/resident/PA/BROKERAGE CLERK, agreed w/resident/PA/BROKERAGE CLERK, reviewed EMR data (avail), discussed with nursing, discussed with case mgmt, amended to note Attending Assessment/Plan: Patient seen and examined, offers no complaints except that he is constipated. He denies any pain in his right foot. Vital Signs Date Time Temp Pulse Resp B/P Pulse O2 O2 Flow FiO2 Ox Delivery Rate 01/12 1017 75 102/56 01/12 0637 98.2 82 18 134/78 93 Room Air 01/11 2112 99.3 76 20 140/60 92 Room Air 01/118 140/60 01/11 1632 97.7 85 18 128/60 97 Room Air on exam; aox3, nad. cv; s1,s2, rrr resp; clear abd; soft, nt, bs+ ext; trace edema, + SUJATHA wrap on right foot. Laboratory Tests 01/12 0500 Chemistry Sodium (137 - 145 mmol/L) 138 Potassium (3.5 - 5.1 mmol/L) 3.7 Chloride (98 - 107 mmol/L) 102 Carbon Dioxide (22 - 30 mmol/L) 26 Anion Gap (5 - 16) 10 BUN (9 - 20 mg/dL) 20 Creatinine (0.7 - 1.2 mg/dL) 1.2 Estimated GFR (>60 ml/min) 58 L BUN/Creatinine Ratio (7 - 25 %) 16.7 Coagulation APTT (25 - 37 SEC) 81 H Hematology CBC w Diff NO MAN DIFF REQ WBC (4.8 - 10.8 /CUMM) 7.2 RBC (4.70 - 6.10 /CUMM) 3.48 L Hgb (14.0 - 18.0 G/DL) 10.6 L Hct (42 - 52 %) 32.4 L MCV (80.0 - 94.0 FL) 93.1 MCH (27.0 - 31.0 PG) 30.5 RDW (11.5 - 14.5 %) 16.1 H Plt Count (130 - 400 /CUMM) 225 MPV (7.4 - 10.4 FL) 8.8 Gran % (42.2 - 75.2 %) 58.6 Lymphocytes % (20.5 - 51.1 %) 27.7 Monocytes % (1.7 - 9.3 %) 8.9 Eosinophils % (0 - 5 %) 4.6 Basophils % (0.0 - 2.0 %) 0.2 Absolute Granulocytes (1.4 - 6.5 /CUMM) 4.2 Absolute Lymphocytes (1.2 - 3.4 /CUMM) 2.0 Absolute Monocytes (0.10 - 0.60 /CUMM) 0.6 Absolute Eosinophils (0.0 - 0.7 /CUMM) 0.3 Absolute Basophils (0.0 - 0.2 /CUMM) 0 PUBS MCHC (33.0 - 37.0 G/DL) 32.7 L A/P: 81 y/o M with pmh sig for htn, hpl, diabetes, ch right foot wounds who presented with non healing infected right heel and ankle wound. Status post debridement of the wound as well as angiogram and angioplasty of the right lower extremity. Patient has been kept on vancomycin as per podiatry. Will also podiatry after tomorrow's second procedure to see if he needs long-term antibiotics or not. Patient with history off. Peripheral vascular disease and he is on anticoagulation secondary to having stents in his legs. We did check with vascular surgery Dr. Gem Kerns to see if he would be a candidate to resume Coumadin after his second podiatry procedure or whether he should be started on another anticoagulated agent which will be the newer anticoagulant. Although I' m not sure if the newer anticoagulant is approved for the indication of stents in the legs. Please contact Dr. Gem Kerns and discuss with him. Levemir dose was increased yesterday which I agree. Patient will be kept nothing by mouth after midnight tonight. We can start him on low-dose D5NS at 50 mL an hour. Keep the Levemir at the same dose. DVT prophylaxis: Patient on heparin drip
[2017-01-12 14:13] VITALS: BP 106/70
[2017-01-12 18:29] LABS: PTT 64 SEC (25-37)
[2017-01-12 23:00] VITALS: BP 118/68
[2017-01-13 06:22] LABS: PTT 69 SEC (25-37)
[2017-01-13 06:40] VITALS: BP 132/64
--- NOTE | 2017-01-13 07:40 | PN- Housestaff ---
See Addendum Subjective Follow-up For: Right heel nonhealing ulcer peripheral vascular disease Subjective: Afebrile, no acute overnight events reported, laying on it looks relaxed and comfortable. Patient responded to milk of magnesia and had 2 large bowel movements overnight, he denies nausea, vomiting, or abdominal pain. Patient denies fever, chills, or any other complaints. Patient is on IV heparin with PTT today is 69 Patient will be taken to the OR for right foods I&D Review of Systems Constitutional: Reports: no symptoms. Denies: chills, fever. Objective Last 24 Hrs of Vital Signs/I&O Vital Signs Date Time Temp Pulse Resp B/P Pulse O2 O2 Flow FiO2 Ox Delivery Rate 01/13 0640 98.4 83 20 132/64 95 Room Air 01/12 2300 98.8 75 16 118/68 94 Room Air 01/12 2037 75 118/68 01/12 1413 99.0 96 20 106/70 92 Room Air 01/12 1017 75 102/56 Intake & Output 01/13 1600 01/13 0800 01/13 0000 Intake Total 450 350 Output Total 500 400 Balance -50 -50 Intake, IV 300 Intake, Oral 150 350 Number 1 Bowel Movements Output, Urine 500 400 Physical Exam General Appearance: Alert, Oriented X3, Cooperative, No Acute Distress Skin: No Rashes Cardiovascular: Regular Rate, Normal S1, Normal S2, No Murmurs Lungs: Clear to Auscultation Abdomen: Soft, No Tenderness Neurological: Normal Speech Extremities: right leg is covered with bandages Current Medications: Current Medications Sig/Fabricio Start time Last Medication Dose Route Stop Time Status Admin Allopurinol 300 MG QPM 01/07 2200 AC 01/12 PO 2037 Atorvastatin Calcium 10 MG 1700 01/07 1700 AC 01/12 PO 170 Bisacodyl 10 MG .STK-MED ONE 01/12 1655 DC LA 01/12 1656 Bisacodyl 10 MG ONCE ONE 01/12 1015 DC 01/12 LA 01/12 1016 1029 Bumetanide 1 MG DAILY 01/08 1017 AC 01/12 PO 1017 Dextrose/Sodium 1,000 ML Q20H 01/13 0000 AC 01/12 Chloride IV 01/13 1959 2333 Doxazosin Mesylate 2 MG QPM 01/07 2200 AC 01/12 PO 2037 Gabapentin 300 MG TID 01/07 1601 AC 01/12 PO 2036 Heparin Sodium 25,000 UNIT Q24H 01/10 2015 AC 01/12 (Porcine) IV 203 Sodium Chloride 500 ML Insulin Aspart 0 TIDAC 01/10 1700 AC 01/12 SC 1707 Insulin Detemir 30 UNITS BID 01/11 2200 AC 01/12 SC 203 Insulin Human Regular 0 Q6 01/13 0600 AC 01/13 SC 0536 Magnesium Hydroxide 30 ML .STK-MED ONE 01/12 1655 DC PO 01/12 1656 Magnesium Hydroxide 30 ML AT BEDTIME PRN 01/12 1030 AC PO Magnesium Hydroxide 30 ML AT BEDTIME PRN 01/12 1030 AC PO Magnesium Hydroxide 30 ML ONE ONE 01/12 1015 DC 01/12 PO 01/12 1016 1029 Metoprolol Tartrate 25 MG BID 01/07 220 AC 01/12 PO 2036 Patient Medication 1 ED .STK-MED ONE 01/12 1339 DC Teaching ED 01/12 1340 Polyethylene Glycol 17 GM DAILY 01/11 1852 AC 01/12 PO 1017 Senna 187 MG AT BEDTIME 01/11 2200 AC 01/12 PO 2037 Vancomycin HCl 1,500 MG Q24H 01/11 1900 DC 01/11 Dextrose/Water 250 ML IV 1859 Last 24 Hrs of Lab/Maikel Results Last 24 Hrs of Labs/Mics: Laboratory Tests 01/13/17 0515: APTT 69 H 01/12/17 1715: APTT 64 H Assessment/Plan Assessment: This is an 81-year-old male who presented with questionable cellulitis of the lower right ankle. Non Healing ulcer and History of PVD Excisional debridement was done. Ultrasound showed multiple arterial stenosis ( ? explain the nonhealing ulcer), Angioplasty of right popliteal and right superficial femoral artery was done 3 days ago. In the mean time, we will continue patient on Vancomycin as per Podiatric Surgeon. Patient will be taking for I&D today * We will watch of antibiotic until back from OR. * Keep foot elevated. * We will follow vascular recommendation regards long-term anticoagulant History of DVT Patient is on warfarin at home. Warfarin is on hold he is currently on heparin drip * Continue heparin drip * We will contact vascular for long-term anticoagulation #Diabetes mellitus Patient was mildly hyperglycemic throughout the last 2 days, patient receiving vancomycin in dextrose and this can explain his uncontrolled hyperglycemia. * We will increasing his sliding scale coverage * We will increase his insulin Levemir to 30 mg twice a day Diabetic diet DVT Ppx on IV heparin drip (no warfarin for possible surgery) DNR/DNI Problem List: 1. Cellulitis of right lower extremity Pain Ratin Pain Location: Right leg Pain Goal: Remain pain free Pain Plan: See assessment and plan Tomorrow's Labs & Rationales: See assessment and plan See assessment and plan
--- NOTE | 2017-01-13 11:00 | NUR ---
PT TAKEN VIA STRETCHER TO OR. GLASSES AND JEWELRY LEFT AT BEDSIDE. WOUND VAC SENT WITH PATIENT.
--- NOTE | 2017-01-13 13:30 | NUR ---
RETURNED FROM OR. A & O X 3. VSS. DENIES PAIN. WOUND VAC IN PLACE TO RIGHT FOOT WITH NO DRAINAGE NOTED. MOVED TO BED, TURNED. FLUID FILLED BLISTER NOTED TO RIGHT BUTTOCK ?FRICTION. WILL MONITOR.
[2017-01-13 13:57] VITALS: BP 124/64
--- NOTE | 2017-01-13 14:41 | Operative Report ---
Operative/Inv Procedure Report Surgery Date: 01/13/17 Name of Procedure: 1 Open incision and drainage deep to the deep fascia with exposure of the tendon and tendon sheath multiple sites right foot 2 Intra-operative application of negative pressure wound therapy 3 Intra-operative administration of ankle block anesthesia 4 Excisional debridement Pre-Operative Diagnosis: 1 Open, infected wound right foot 2 Peripheral arterial disease Post-Operative Diagnosis: The same Estimated Blood Loss: less than 50ml Surgeon/Order Dispatcher: JUAN SCHERER DPM Anesthesia: moderate sedation, block Operative/Procedure Note Note: After obtaining informed consent the patient was brought to the operating room and placed on the operating table in the supine position. The patient isn't securely fastened to the operating table utilizing safety belt. After administration of IV sedation, 10 mL of 0.5% Marcaine plain was infiltrated about the patient's right ankle. The right foot and ankle within scrubbed prepped and draped in usual aseptic manner. Attention directed to the plantar lateral aspect of the right heel where a large full-thickness chronic was identified. A 15 blade visualized sharply revised skin margins. It was then carried down deep to the D fashion with exposure of the flexor tendon and tendon sheath multiple sites, both proximally and distally. Necrotic nonviable infected tissue sharply evacuated from the wound bed. The wound was then irrigated with 3 L of normal sterile saline fissure 50,000 units of bacitracin. Following this, the foot was redraped and the surgeon's top gloves were changed clean gloves. The vessels identified were cauterized or ligated as encountered. Next, negative pressure wound therapy was then applied followed by Kerlix and an Catarino wrap. The patient was noted to tolerate both procedure and anesthesia well and the patient was transported from the operating room to recovery with vital signs stable.
[2017-01-13 21:58] VITALS: BP 118/58
[2017-01-13 22:07] LABS: PTT 52 SEC (25-37)
[2017-01-14 04:57] LABS: PTT 86 SEC (25-37)
[2017-01-14 06:40] VITALS: BP 122/70
--- NOTE | 2017-01-14 07:38 | PN- Housestaff ---
RAIN SHAV[facility] 0738: Subjective Follow-up For: Right heel nonhealing ulcer peripheral vascular disease/status post surgery Subjective: Afebrile, stable with no complaints, no acute events reported, laying on bed looks relaxed and comfortable. Patient would like to know one he would be discharged. Review of Systems Constitutional: Reports: no symptoms. Denies: chills, fever. Cardiovascular: Reports: no symptoms. Respiratory: Reports: no symptoms. Gastrointestinal: Reports: no symptoms. Genitourinary: Reports: no symptoms. Objective Last 24 Hrs of Vital Signs/I&O Vital Signs Date Time Temp Pulse Resp B/P Pulse O2 O2 Flow FiO2 Ox Delivery Rate 01/14 0640 98.5 63 20 122/70 96 Room Air 01/13 2158 98.2 76 20 118/58 95 Room Air 01/13 2143 77 118/58 01/13 1357 95.2 63 18 124/64 94 Room Air 01/13 0934 66 110/56 Intake & Output 01/14 1600 01/14 0800 01/14 0000 Intake Total 430 1776 Output Total 25 475 Balance 405 1301 Intake, IV 310 276 Intake, Oral 120 1500 Number 1 Bowel Movements Output, 25 25 Drainage Output, Urine 450 Physical Exam General Appearance: Alert, Oriented X3, Cooperative, No Acute Distress Skin: No Rashes HEENT: Atraumatic, PERRLA, EOMI, Mucous Membr. moist/pink Neck: No JVD Cardiovascular: Regular Rate, Normal S1, Normal S2, No Murmurs Lungs: Clear to Auscultation Abdomen: Soft, No Tenderness Neurological: Normal Speech Extremities: right leg is dressed with bandages. Current Medications: Current Medications Sig/Fabricio Start time Last Medication Dose Route Stop Time Status Admin Acetaminophen 1,000 MG .STK-MED ONE 01/13 1115 DC IV 01/13 1116 Allopurinol 300 MG QPM 01/07 2200 AC 01/13 PO 2143 Atorvastatin Calcium 10 MG 1700 01/07 1700 AC 01/13 PO 1652 Bumetanide 1 MG DAILY 01/08 1017 AC 01/13 PO 0930 Dextrose/Sodium 1,000 ML Q20H 01/13 0000 DC 01/12 Chloride IV 01/13 1959 2333 Doxazosin Mesylate 2 MG QPM 01/07 2200 AC 01/13 PO 2144 Gabapentin 300 MG TID 01/07 1601 AC 01/13 PO 2143 Heparin Sodium 4,264 UNIT BOLUS ONE 01/13 2230 DC 01/13 (Porcine) IV 01/13 2231 2230 Heparin Sodium 25,000 UNIT Q24H 01/10 2015 AC 01/13 (Porcine) IV 223 Sodium Chloride 500 ML Hydromorphone HCl 2 MG .STK-MED ONE 01/13 1251 DC IM 01/13 1252 Insulin Aspart 0 TIDAC 01/13 1700 AC 01/13 SC 1822 Insulin Aspart 0 TIDAC 01/10 1700 DC 01/13 SC 1352 Insulin Detemir 30 UNITS BID 01/11 2200 AC 01/13 SC 2140 Insulin Human Regular 0 Q6 01/13 0600 DC 01/13 SC 0536 Magnesium Hydroxide 30 ML AT BEDTIME PRN 01/12 1030 AC PO Magnesium Hydroxide 30 ML AT BEDTIME PRN 01/12 1030 AC PO Metoprolol Tartrate 25 MG BID 01/07 220 AC 01/13 PO 2143 Patient Medication 1 ED .STK-MED ONE 01/13 1424 DC Teaching ED 01/13 1425 Polyethylene Glycol 17 GM DAILY 01/11 1852 AC 01/13 PO 0934 Senna 187 MG AT BEDTIME 01/11 2200 AC 01/13 PO 2144 Last 24 Hrs of Lab/Maikel Results Last 24 Hrs of Labs/Mics: Laboratory Tests 01/14/17 0430: APTT 86 H 01/13/17 2115: APTT 52 H Assessment/Plan Assessment: Non Healing ulcer and History of PVD Excisional debridement was done. Ultrasound showed multiple arterial stenosis ( ? explain the nonhealing ulcer), Angioplasty of right popliteal and right superficial femoral artery was done 4 days ago. She was initially started on vancomycin IV, that was DC'd after 5 doses. Patient went for twice with last time being I&D yesterday. * We will keep watching of antibiotic as osteomyelitis being unlikely. * Keep foot elevated. * Most likely will be discharged tomorrow History of DVT Patient is on warfarin at home. Warfarin is on hold he is currently on heparin drip * We will DC heparin drip * We will start patient on daily Lovenox 160 mg subcutaneous for 5 days * Patient will be discharged on the same warfarin dose that he was admitted with * We will schedule a visiting nurse and a weekly INR check * Most likely will be discharged tomorrow #Diabetes mellitus. * We continue the current sliding scale coverage * We will continue insulin Levemir 30 mg twice a day Diabetic diet DVT Ppx on IV heparin drip (no warfarin for possible surgery) DNR/DNI Problem List: 1. Cellulitis of right lower extremity 2. Foot ulcer 3. Diabetes Pain Ratin Pain Location: Right leg Pain Goal: Remain pain free Pain Plan: See assessment and plan Tomorrow's Labs & Rationales: See assessment and plan MILTON DIALLO MD 01/14/17 1401: Attending MD Review Statement Attending Statement Attending MD Statement: examined this patient, discuss w/resident/PA/ARCHITECTURAL ADMINISTRATIVE ASSISTANT, agreed w/resident/PA/ARCHITECTURAL ADMINISTRATIVE ASSISTANT, reviewed EMR data (avail), discussed with nursing, discussed with case mgmt, amended to note Attending Assessment/Plan: Patient seen and examined, currently denies any complaints. He underwent a second debridement with Dr. Machuca yesterday and now has a wound VAC on right foot. I spoke with Dr. Gem Kerns yesterday. He is okay with Coumadin as well as he make sure that patient's INR gets checked regularly. We arranged the [facility] to go home and check patient's INR. We will notify patient's primary care doctor Dr. Jose Luis Medrano about the fact that [facility] will be going patient's home and can draw the blood work. PCP will have to order the blood work. Patient will be started on Lovenox 1.5 mg/kg today after he stopped heparin. He will be continued on Lovenox for the next few days to his INR is therapeutic. Coumadin will be started today at 5 mg. Please check his INR in the morning. We should give him at least 5 day supply of Lovenox and check INR on Tuesday. Once INR is therapeutic the Lovenox will be stopped. As we discussed with Dr. Machuca, no antibiotics are indicated. Once the wound VAC is available hopefully tomorrow, patient can be discharged home. He has home services as well as 24-hour care at home.
[2017-01-14 14:42] VITALS: BP 122/80
[2017-01-14] MEDS ORDERED: LOVENOX100 MG/1 M SC (15:35)
--- NOTE | 2017-01-14 17:35 | Discharge Summary ---
Visit Information Visit Dates Admission Date: 01/07/17 Discharge Date: 01/15/17 Hospital Course Course Attending Physician: MILTON DIALLO MD Primary Care Physician: LIZZY SHAVER,CINTHYA Lemus Hospital Course: Mr Bentley is an 81-year-old gentleman with past medical history significant for peripheral vascular disease, hyperlipidemia hypertension and diabetes who Presented to the emergency department on 01/07/2017 after a visiting home nurse found that his chronic right ulcer looked more erythematous and was tender to touch. The following issues were addressed during this admission 1.Non Healing ulcer and History of PVD Excisional debridement was done. Ultrasound showed multiple arterial stenosis, this can explain the nonhealing ulcer, Angioplasty of right popliteal and right superficial femoral artery was performed. He was initially started on vancomycin IV, that was DC'd after 5 doses. Patient went twice for I&D there was. Patient was discharged after the wound was cleaned and osteomyelitis was excluded. He was given a wound VAC, we scheduled a visiting nurse to change the wound VAC every Tuesday, Tuesday and Tuesday and was instructed to follow with Dr. Cruz on his clinic 2.History of DVT Patient was using morphine prior to admission, it was held initially prior to the angioplasty. Patient was started on heparin drip. Prior to discharge she was started back on warfarin, he was also instructed to follow with primary care doctor for INR check. We scheduled a visiting nurse weekly to check the INR #Diabetes mellitus. Patient home medication was held, he was started on insulin scale. On discharge we restarted his home antihyperglycemic oral medication. Allergies: Coded Allergies: Sulfa (Sulfonamide Antibiotics) (Mild, ITCHING 01/07/17) Penicillins (HAD A REACTION A KID 01/07/17) Disposition Summary Disposition Principal Diagnosis: 1.Nonhealing an ulcer 2.significant stenosis of the distal left superficial femoral artery. Additional Diagnosis: Hyperlipidemia Hypertension Diabetes Discharge Disposition: home or self care Discharge Instructions General Discharge Information Code Status: Do Not Resucitate/Intubat Patient's Diet: Diabetic diet Patient's Activity: As tolerated Follow-Up Instructions/Appts: Please follow up with primary care doctor within 1 week Please follow up with Dr. Cruz within 1 week Please check your INR every week Medications at Discharge Discharge Medications: Continue taking these medications: Allopurinol (Allopurinol) 300 MG TABLET 1 Tablet ORAL Every night Comments: Last Taken:01/14/17 Time:9:30 PM Bumetanide (Bumetanide) 1 MG TABLET 1 Tablet ORAL DAILY Comments: Last Taken:01/15/17 Time:9:45 AM Doxazosin Mesylate (Cardura) 2 MG TABLET 1 Tablet ORAL Every night Comments: Last Taken:01/14/17 Time:9:30 PM Metoprolol Tartrate (Metoprolol Tartrate) 25 MG TABLET 1 Tablet ORAL TWICE DAILY Comments: Last Taken:01/15/17 Time:9:45 AM Warfarin Sodium (Coumadin) 5 MG TABLET 1 Tablet ORAL DAILY Comments: Last Taken:01/14/17 9:30 PM Time:Tue FRI SAT SUN Simvastatin (Zocor*) 20 MG TABLET 1 Tablet ORAL Every night Comments: LIPITOR GIVEN Insulin Glargine,Hum.rec.anlog (Lantus Solostar) 100 UNIT/ML (3 ML) INSULN.PEN 10 Unit Inject into fatty tissue Every night Comments: NOT GIVEN. LEVEMIR GIVEN 01/15/17 @ 10 AM Gabapentin (Gabapentin) 300 MG CAPSULE 1 Capsule ORAL THREE TIMES DAILY Comments: Last Taken:01/15/17 Time:9:45 AM Metformin HCl (Metformin HCl) 500 MG TABLET 1 Tablet ORAL 5 PM Qty = 90 Comments: NOT GIVEN Warfarin Sodium (Warfarin Sodium) 5 MG TABLET 0.5 Tablet ORAL EVERY TUESDAY Insulin Glargine,Hum.rec.anlog (Lantus Solostar) 100 UNIT/ML (3 ML) INSULN.PEN 50 Unit Inject into fatty tissue Every night Comments: NOT GIVEN. LEVEMIR GIVEN 01/15/17 @ 10 AM Start taking the following new medications: Enoxaparin Sodium (Lovenox) 100 MG/ML SYRINGE 160 Milligram Inject into fatty tissue DAILY Days = 5 No Refills Comments: Last Taken:01/14/17 Time:5PM Copies To: KAPIL SCHERER DPM, MD,CINTHYA Lemus
--- NOTE | 2017-01-14 18:24 | NUR ---
LOVENOX TEACHING STARTED WITH THE PATIENT. PT DEMONSTRATED WASTING AND ADMINISTERING LOVENOX PROPERLY. WILL NEED FURTHER F/U WITH WASTING PATIENT HAS A DIFFICULT TIME SEEING THE NUMBERS. PLEASE REINFORCE WHERE THE NUMBERS ARE VISIBLE. THANK YOU
[2017-01-14 21:45] VITALS: BP 112/70
--- NOTE | 2017-01-15 07:23 | PN- Housestaff ---
Subjective Follow-up For: Right heel nonhealing ulcer peripheral vascular disease/status post surgery Subjective: Stable with no complaints. No acute events reported, laying on bed looks relaxed and comfortable. Patient would like to be discharged before noon. Review of Systems Constitutional: Reports: no symptoms, see HPI. Objective Last 24 Hrs of Vital Signs/I&O Vital Signs Date Time Temp Pulse Resp B/P Pulse O2 O2 Flow FiO2 Ox Delivery Rate 01/15 0947 82 118/78 01/15 0809 98.0 66 20 98/70 96 Room Air 01/14 2145 98.2 69 20 112/70 93 Room Air 01/14 2125 112/70 01/14 1442 97.6 74 18 122/80 94 Room Air Intake & Output 01/15 1600 01/15 0800 01/15 0000 Intake Total 340 Output Total 970 725 5756 Balance -500 -350 -1660 Intake, Oral 340 Output, 0 Drainage Output, Urine 833 018 6815 Physical Exam General Appearance: Alert, Oriented X3, Cooperative, No Acute Distress Skin: No Rashes HEENT: Atraumatic, PERRLA, EOMI, Mucous Membr. moist/pink Cardiovascular: Regular Rate, Normal S1, Normal S2, No Murmurs Lungs: Clear to Auscultation Abdomen: Soft, No Tenderness Extremities: right leg is covered with bandages and has a wound VAC on Current Medications: Current Medications Sig/Fabricio Start time Last Medication Dose Route Stop Time Status Admin Allopurinol 300 MG QPM 01/07 2200 DCD 01/14 PO 2125 Atorvastatin Calcium 10 MG 1700 01/07 1700 DCD 01/14 PO 1650 Bumetanide 1 MG DAILY 01/08 1017 DCD 01/15 PO 0947 Doxazosin Mesylate 2 MG QPM 01/07 2200 DCD 01/14 PO 2126 Enoxaparin Sodium 160 MG DAILY@1400 01/14 1400 DCD 01/14 SC 1651 Gabapentin 300 MG TID 01/07 1601 DCD 01/15 PO 0948 Insulin Aspart 0 TIDAC 01/13 1700 DCD 01/15 SC 0837 Insulin Detemir 30 UNITS BID 01/11 2200 DCD 01/15 SC 0947 Magnesium Hydroxide 30 ML AT BEDTIME PRN 01/12 1030 DCD PO Magnesium Hydroxide 30 ML AT BEDTIME PRN 01/12 1030 DCD PO Metoprolol Tartrate 25 MG BID 01/07 2200 DCD 01/15 PO 0947 Patient Medication 1 ED .STK-MED ONE 01/14 1414 NH Teaching ED 01/14 1415 Polyethylene Glycol 17 GM DAILY 01/11 1852 DCD 01/13 PO 0934 Senna 187 MG AT BEDTIME 01/11 2200 DCD 01/14 PO 2125 Warfarin Sodium 5 MG COUMADIN 1700 ONE 01/14 1700 DC 01/14 PO 01/14 1701 2126 Last 24 Hrs of Lab/Maikel Results Last 24 Hrs of Labs/Mics: Laboratory Tests 01/15/17 0622: PT 11.9, INR 1.13 Assessment/Plan Assessment: Non Healing ulcer and History of PVD Excisional debridement was done. Ultrasound showed multiple arterial stenosis ( ? explain the nonhealing ulcer), Angioplasty of right popliteal and right superficial femoral artery was done 4 days ago. She was initially started on vancomycin IV, that was DC'd after 5 doses. Patient went for twice with last time being I&D 2 days ago * Patient will be discharged today of antibiotic * A visiting nurse will change wound VAC every Tuesday, Tuesday and Tuesday as per Dr. Cruz recommendation. * Ration was told to follow up with Dr. Cruz on this Tuesday at 12:45 PM History of DVT Patient is on warfarin at home. Warfarin is on hold he is currently on heparin drip * We will DC heparin drip * We will start patient on daily Lovenox 160 mg subcutaneous for 5 days * Patient will be discharged on the same warfarin dose that he was admitted with * We will schedule a visiting nurse and a weekly INR check #Diabetes mellitus. * We continue the current sliding scale coverage * We will continue insulin Levemir 30 mg twice a day * She will be discharged on the same antihyperglycemic regimen that he was admitted with Diabetic diet DVT Ppx on Lovenox DNR/DNI Problem List: 1. Foot ulcer Pain Ratin Pain Location: Right food Pain Goal: Remain pain free Pain Plan: See assessment and plan Tomorrow's Labs & Rationales: See assessment and plan
[2017-01-15 08:09] VITALS: BP 98/70
[2017-01-15 08:19] LABS: PT 11.9 SEC (9.4-12.5)
[2017-01-15 09:47] VITALS: BP 118/78
--- NOTE | 2017-01-15 11:12 | PN- Att Addend ---
Attending Addendum Attending Brief Note Attending MD Statement: examined this patient, discuss w/resident/PA/COLOR CHECKER, agreed w/resident/PA/COLOR CHECKER, reviewed EMR data (avail) Attending Assessment/Plan: Patient seen and examined. Plan of care discussed with the medical team and the patient. Available lab work and radiology test reports were reviewed. Patient has been afebrile with MAXIMUM TEMPERATURE 98 and currently comfortable. Complains of for mild to moderate left knee and leg pain. Denies any fever chills or chest pains. Otherwise vital signs stable. Chest exam is clear abdomen soft nontender. Legs do not show any edema. WBC count is normal and chemistry labs are within normal limits. INR is 1.13. Plan is for patient to be discharged home today. He will continue Lovenox with Coumadin. He is currently off antibiotics. Patient will have visiting nurse. Patient only appears comfortable with using Lovenox pen.
== END 2017-01-15 11:58 | disposition home health service (06) | DRG 623 ==
LOC: ENRESERVTM → ENRESERVDT → CANRESERV → ERH 10:18 → ERHI 14:14 → ENPENDDIS 14:14 → 2NA 14:14
PROVIDERS: Internal Medicine; Physician Assistant; Student in an Organized Health Care Education/Training Program; ADMIT Hospitalist
PROC: 047K3ZZ Dilation of Right Femoral Artery, Percutaneous Approach (ICD-10-PCS; principal; 2017-01-10)
PROC: 047M3ZZ Dilation of Right Popliteal Artery, Percutaneous Approach (ICD-10-PCS; principal; 2017-01-10)
PROC: 0J9Q0ZZ Drainage of Right Foot Subcutaneous Tissue and Fascia, Open Approach (ICD-10-PCS; 2017-01-10)
PROC: 0JBQ0ZZ Excision of Right Foot Subcutaneous Tissue and Fascia, Open Approach (ICD-10-PCS; 2017-01-10)
PROC: B40CYZZ Plain Radiography of Pelvic Arteries using Other Contrast (ICD-10-PCS; 2017-01-10)
PROC: B40FYZZ Plain Radiography of Right Lower Extremity Arteries using Other Contrast (ICD-10-PCS; 2017-01-10)
DX: E11.621 Type 2 diabetes mellitus with foot ulcer (principal); L97.411 Non-pressure chronic ulcer of right heel and midfoot limited to breakdown of skin; L97.511 Non-pressure chronic ulcer of other part of right foot limited to breakdown of skin; E11.40 Type 2 diabetes mellitus with diabetic neuropathy, unspecified; Z79.4 Long term (current) use of insulin; I10 Essential (primary) hypertension; E78.5 Hyperlipidemia, unspecified; H81.10 Benign paroxysmal vertigo, unspecified ear; M10.9 Gout, unspecified; I73.9 Peripheral vascular disease, unspecified; Z87.891 Personal history of nicotine dependence
CPT/HCPCS: 2NASP; 36415; 73552; 73610-RT; 73630-RT; 82436; 87040; 87086; 88304; 93005; 93010; 93925; 96374; C1725; C1760; J0131; J0690; J1644; J1650; J2001; J3370; J7042; J7060; Q9967

== ENCOUNTER 2017-02-11 02:10 | Inpatient (IN) | payer OTHER ==
--- NOTE | 2017-02-10 16:07 | History & Physical Pre-Op ---
General Information and HPI History of Present Illness: Mr. Milligan is an 81-year-old male well known to me for a nonhealing ulcer to the lateral aspect of his right foot. Recently underwent debridement and negative pressure wound therapy. The patient was discharged home and unfortunately developed a new ulceration associated with pressure to his lateral ankle. Recent ankle x-rays now demonstrate findings suggestive of lateral malleoli or osteomyelitis. Allergies/Medications Allergies: Coded Allergies: Sulfa (Sulfonamide Antibiotics) (Mild, ITCHING 01/07/17) Penicillins (HAD A REACTION A KID 01/07/17) Home Med list Allopurinol 300 MG TABLET 1 TAB PO QPM GOUT (Reported) Bumetanide 1 MG TABLET 1 TAB PO DAILY WATER PILL (Reported) Doxazosin Mesylate (Cardura) 2 MG TABLET 1 TAB PO QPM BP (Reported) Gabapentin 300 MG CAPSULE 1 CAP PO TID neuropathy (Reported) Metformin HCl 500 MG TABLET 1 TAB PO 1700 DM (Reported) Metoprolol Tartrate 25 MG TABLET 1 TAB PO BID BP (Reported) Simvastatin (Zocor*) 20 MG TABLET 1 TAB PO QPM CHOLESTEROL (Reported) Warfarin Sodium (Coumadin) 5 MG TABLET 1 TAB PO DAILY BLOOD THINNER (Reported ) Past History Medical History Neurological: vertigo EENT: benign positional vertigo Cardiovascular: hypertension, hyperlipidemia, PVD Respiratory: pulmonary embolism Gastrointestinal: NONE Hepatic: NONE Renal: NONE Musculoskeletal: gout, spinal stenosis Psychiatric: NONE Endocrine: diabetes Blood Disorders: DVT Cancer(s): NONE SANITARIAN/Reproductive: NONE History of MRSA: No History of VRE: No History of CDIFF: No Influenza Vaccine: 07/31/16 Surgical History Pertinent Surgical History: hernia repair-inguinal, vascular stenting rle Past Family/Social History Psychosocial History Who Do You Live With? spouse Services at Home Home Health Aide, Nursing Primary Language: [place] Functional Ability ADLs Needs Assist: dressing, eating, toileting, bathing. Ambulation: Power Chair IADLs Independent: finances, telephone, medication admin. Needs Assist: shopping, housework, food prep, transportation. Review of Systems Review of Systems: Unremarkable except for that noted in history present illness Exam & Diagnostic Data Last 24 Hrs of Vital Signs/I&O Intake & Output 02/10 1600 02/10 0800 02/10 0000 Intake Total Output Total Balance Patient 234 lb Weight Physical Exam: 8 cm x 6 cm full-thickness ulceration noted overlying the lateral aspect of the ankle. There is probing centrally identified down to the level of the joint. Edema and cellulitis is noted about the ankle extending approximately 6-7 cm. 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 After lengthy discussion with the patient elected to go forward with a surgical debridement of his ankle and admission for IV antibiotics. As Ranked By This Provider Problem List: 1. Other acute osteomyelitis, right ankle and foot Attending MD Review Statement Attending Statement Attending MD Statement: examined this patient
[~2017-02-11] VITALS: Ht 182.9 cm; Wt 103.1 kg
[~2017-02-11 02:10] MED LIST changes: +GABAPENTIN300 M2 PO; +LOVENOX100 MG/1 M SC; +METFORMIN HCL500 M3 PO; +WARFARIN SODIUM5 M1 PO
[2017-02-11 10:44] LABS: PT 33.3 SEC (9.4-12.5)
--- NOTE | 2017-02-11 13:38 | Operative Report ---
Operative/Inv Procedure Report Surgery Date: 02/11/17 Name of Procedure: 1 open incision and drainage deep to the D fashion with exposure of the flexor tendon and tendon sheath multiple sites right foot and ankle 2 open bone biopsy right lateral malleolus 3 intraoperative administration of ankle block anesthesia 4 excisional debridement Pre-Operative Diagnosis: 1 open necrotic wound right ankle and foot 2 osteomyelitis right ankle Post-Operative Diagnosis: 1 open necrotic wound right foot and ankle 2 osteomyelitis right ankle Estimated Blood Loss: less than 50ml Surgeon/Professor Of Anthropology: JUAN SCHERER DPM Anesthesia: moderate sedation, block Operative/Procedure Note Note: After obtaining informed consent the patient was brought to the operating room and placed on the operating table in the supine position. The patient isn't securely fastened to the operating table utilizing safety belt. After administration of IV sedation, 10 mL of 0.5% Marcaine plain was infiltrated about the patient's right ankle. The right foot and ankle then scrubbed prepped and draped in usual aseptic manner. Where a 15 cm x 5 cm full-thickness chronic was identified. A 15 blade was utilized sharply revised skin margins. The dissection was then carried down deep to the deep fascia with exposure of the flexor tendon and tendon sheath multiple sites, both proximally and distally. All necrotic nonviable infected tissue sharply evacuated from the wound bed. Soft tissue specimen was sent for microbiologic inspection. The dissection was then carried down to the periosteum overlying the distal fibula which was incised reflected. Sagittal bone saw was utilized to resect a bone specimen from the lateral malleolus which was then sent for both microbiologic and pathologic inspection. The open wound was then irrigated with 3 L of normal sterile saline infusion 50,000 units of bacitracin. Following this, the foot was redraped and the surgeon's top gloves were exchanged for clean gloves. Any bleeding vessels identified were cauterized or ligated as encountered. The foot was then packed with iodoform followed by 4 x 4's EBD pads Kerlix and an Catarino wrap. The patient was noted to tolerate both procedure and anesthesia well and the patient was transported from the operating room to recovery with vital signs stable.
--- NOTE | 2017-02-11 14:17 | Cons- Infect Disease ---
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 He has had minimal pain in the foot and has had no fevers, chills or systemic symptoms. He does note nonhealing of the left groin wound since the angiogram last month. Allergies/Medications Allergies: Coded Allergies: Sulfa (Sulfonamide Antibiotics) (Mild, ITCHING 01/07/17) Penicillins (HAD A REACTION A KID 01/07/17) Home Med List: Allopurinol 300 MG TABLET 1 TAB PO QPM GOUT (Reported) Bumetanide 1 MG TABLET 1 TAB PO DAILY WATER PILL (Reported) Doxazosin Mesylate (Cardura) 2 MG TABLET 1 TAB PO QPM BP (Reported) Gabapentin 300 MG CAPSULE 1 CAP PO TID neuropathy (Reported) Metformin HCl 500 MG TABLET 1 TAB PO 1700 DM (Reported) Metoprolol Tartrate 25 MG TABLET 1 TAB PO BID BP (Reported) Simvastatin (Zocor*) 20 MG TABLET 1 TAB PO QPM CHOLESTEROL (Reported) Warfarin Sodium (Coumadin) 5 MG TABLET 1 TAB PO DAILY BLOOD THINNER (Reported ) Past History Medical History Neurological: vertigo EENT: benign positional vertigo Cardiovascular: hypertension, hyperlipidemia, PVD Respiratory: pulmonary embolism Gastrointestinal: NONE Hepatic: NONE Renal: NONE Musculoskeletal: gout, spinal stenosis Psychiatric: NONE Endocrine: diabetes Blood Disorders: DVT Cancer(s): 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 spouse Services at Home: Home Health Aide, Nursing Primary Language: Sami Functional Ability ADLs Needs Assist: dressing, eating, toileting, bathing. Ambulation: Power Chair IADLs Independent: finances, telephone, medication admin. Needs Assist: shopping, housework, food prep, transportation. Review of Systems Review of Systems All Other Systems: Reviewed and Negative Exam & Diagnostic Data Last 24 Hrs of Vital Signs/I&O Vitals stable Physical Exam Other Physical Findings: He is awake and alert in no acute distress. He is afebrile. Skin reveals no rash. HEENT exam is negative. Neck is supple with no adenopathy. Lungs are clear. Heart regular rhythm with no murmur. Abdomen is soft, nontender with positive bowel sounds. Back no CVA tenderness. Extremities left groin wound at the site of the recent angiogram with no erythema or tenderness but with drainage on the dressing; chronic venous stasis changes both lower extremities; right foot dressing intact; left foot with 1+ pulses. Neuro 3/5 strength left leg, 1/5 strength right leg, with neuropathy both feet. Last 24 Hours of Lab Results: Laboratory Tests 02/11 1011 Coagulation PT (9.4 - 12.5 SEC) 33.3 H INR (0.90 - 1.17) 3.21 H Last 24 Hours of Maikel Results: OR cultures from today pending Diagnostic Data Recent Imaging Findings: X-ray of the right ankle February 02 reveals a soft tissue defect overlying the lateral ankle with cortical irregularity and a less well-defined lateral malleolus and talus suggestive of osteomyelitis Assessment/Plan Assessment/Plan Impression: This is an 81-year-old man with diabetes, peripheral vascular disease, status post partial fifth ray resection of the right foot 2 years prior to admission, treated at that time with a four-week course of Vancomycin for osteomyelitis, hospitalized one month prior to admission with a nonhealing ulcer over the right lateral malleolus and heel, requiring debridement of the soft tissues and angioplasty of the right popliteal artery and superficial femoral artery, admitted today for debridement of the right ankle after an x-ray suggested osteomyelitis. His clinical picture is consistent with osteomyelitis and will await the results of his bone culture and pathology to confirm this diagnosis and identify the pathogen(s) responsible. He has a remote Penicillin allergy and has tolerated cephalosporins, but he believes he may have received a Penicillin derivative at [facility] 2 years prior to admission. His left groin wound has not healed and should be reevaluated. Suggestion: 1. Would obtain information from [facility] regarding any antibiotics he may have received on his admission 2 years prior to admission (namely penicillins) 2. Vascular surgery evaluation of his nonhealing left groin wound 3. Follow-up OR cultures 4. Can begin Cefazolin 2 g IV every 8 hours pending above Consult Acknowledgment - Thank you for your consult request.
[2017-02-11 14:45] VITALS: BP 118/64
--- NOTE | 2017-02-11 15:51 | Cons- Medical ---
ISABEL DHILLON MD 02/11/17 1550: General Information and HPI Consulting Request Date of Consult: 02/11/17 Requested By: JUAN SCHERER DPM Reason for Consult: Medical Management Source of Information: patient, old records Exam Limitations: no limitations History of Present Illness: 81-year-old male with a past medical history of hypertension, diabetes, gout, spinal stenosis with bilateral lower extremity weakness right greater than left, peripheral vascular disease, DVT on Coumadin. He has a one-year history of an ulcer over his right heel and ankle, treated with debridement, and bone biopsy of the right lateral malleolus today after outpatient x-ray suggested ostium myelitis. He has minimal pain in the foot and has had no fevers, chills, or systemic symptoms. Allergies/Medications Allergies: Coded Allergies: Sulfa (Sulfonamide Antibiotics) (Mild, ITCHING 01/07/17) Penicillins (HAD A REACTION A KID 01/07/17) Home Med List: Allopurinol 300 MG TABLET 1 TAB PO QPM GOUT (Reported) Bumetanide 1 MG TABLET 1 TAB PO DAILY WATER PILL (Reported) Doxazosin Mesylate (Cardura) 2 MG TABLET 1 TAB PO QPM BP (Reported) Gabapentin 300 MG CAPSULE 1 CAP PO TID neuropathy (Reported) Metformin HCl 500 MG TABLET 1 TAB PO 1700 DM (Reported) Metoprolol Tartrate 25 MG TABLET 1 TAB PO BID BP (Reported) Simvastatin (Zocor*) 20 MG TABLET 1 TAB PO QPM CHOLESTEROL (Reported) Warfarin Sodium (Coumadin) 5 MG TABLET 1 TAB PO DAILY BLOOD THINNER (Reported ) Current Medications: Current Medications Sig/Fabricio Start time Last Medication Dose Route Stop Time Status Admin Allopurinol 300 MG DAILY 02/12 1000 AC PO Bumetanide 1 MG DAILY 02/12 1000 AC PO Cefazolin Sodium 2,000 MG Q8H 02/11 1430 AC Sodium Chloride 100 ML IV Cefazolin Sodium 2,000 MG Q8 02/11 1413 CAN IV Doxazosin Mesylate 2 MG DAILY 02/12 1000 AC PO Gabapentin 300 MG TID 02/11 1600 AC PO Insulin Aspart 0 TIDAC 02/11 1700 AC SC Insulin Detemir 50 UNITS AT BEDTIME 02/11 2200 AC SC Metoprolol Tartrate 25 MG DAILY 02/12 1000 AC PO Simvastatin 20 MG AT BEDTIME 02/11 2200 AC PO Review of Systems Review of Systems Constitutional: Reports: no symptoms. Cardiovascular: Reports: no symptoms. Respiratory: Reports: no symptoms. GI: Reports: no symptoms. Genitourinary: Reports: no symptoms. Musculoskeletal: Reports: gout. Skin: Reports: change in skin color, erythema, lesions. Neurological/Psychological: Reports: no symptoms. 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 spouse Services at Home: Home Health Aide, Nursing Primary Language: Setswana Functional Ability ADLs Needs Assist: dressing, eating, toileting, bathing. Ambulation: Power Chair IADLs Independent: finances, telephone, medication admin. Needs Assist: shopping, housework, food prep, transportation. Employment History Employment: Retired Exam & Diagnostic Data Last 24 Hrs of Vital Signs/I&O Laboratory Tests 02/11 02/11 1655 1011 Chemistry Sodium Pending Potassium Pending Chloride Pending Carbon Dioxide Pending Anion Gap Pending BUN Pending Creatinine Pending BUN/Creatinine Ratio Pending Coagulation PT (9.4 - 12.5 SEC) 33.3 H INR (0.90 - 1.17) 3.21 H Intake & Output 02/11 0000 02/10 1600 02/10 0800 Intake Total Output Total Balance Patient 234 lb Weight Physical Exam General Appearance: well developed/nourished, no apparent distress, alert, awake , comfortable Head: atraumatic, normal appearance Eyes: Bilateral: normal appearance, PERRL, EOMI. Neck: supple Respiratory: normal breath sounds, no respiratory distress, quiet respiration Cardiovascular: regular rate/rhythm Peripheral Pulses: 2+ radial (R), 2+ radial (L), 1+ dorsalis pedis (L) Gastrointestinal: normal bowel sounds, soft, non-tender, distention Extremities: edema over the right leg, right foot bandaged, left toes appear dusky in appearance, without skin breakdown Neurologic/Psych: awake, alert, oriented x 3 Last 24 Hrs of Labs/Maikel: Laboratory Tests 02/11/17 1011: PT 33.3 H, INR 3.21 H Assessment/Plan Assessment/Plan [age]-year-old male with past medical history peripheral vascular disease, diabetes, status post resection of the right foot 2 years prior to admission now presents after debridement with biopsy. Clinical picture suggestive osteomy mellitus. Awaiting results of bone culture and pathology to identify pathogens responsible. We are asked to aid in comanagement of medical conditions, specifically diabetes and hypertension. Patient appears dry on examination, reports fasting overnight and has not until this point. Recommend start diet today, encouraging oral intake. Holding off on diuretics today. Labs have been ordered today, if renal function is at baseline, may start diuretics tomorrow. INR supratherapeutic Held Coumadin yesterday, yet INR still supratherapeutic. Will hold Coumadin today, and get labs tomorrow. May restart Coumadin after checking INR. Diabetes Accu-Cheks, will start NovoLog sliding-scale, along with Levemir 50 units at night. Monitor blood sugars overnight and in the morning, and will adjust Levemir dosing accordingly. Hold off on metformin at this time as we do not have recent labs pertaining to kidney function. Hypertension BP 119/68 continue home medications Cardura and metoprolol Lipidemia Continue use of simvastatin CODE STATUS DNR/DNI, this was discussed with patient, relayed to Dr. Scherer. Will change CODE STATUS from full code to DNR/DNI as patient's wishes Problem List: 1. Diabetes 2. Gout 3. HTN (hypertension) 4. DVT prophylaxis 5. Other acute osteomyelitis, right ankle and foot Consult Acknowledgment - Thank you for your consult request. BENJA SHAVER,[facility] 02/11/17 0094: Assessment/Plan Consult Acknowledgment - Thank you for your consult request. Attending MD Review Statement Attending Statement Attending MD Statement: examined this patient, discuss w/resident/PA/NETBACKUP ADMIN, agreed w/resident/PA/NETBACKUP ADMIN, discussed with family, reviewed EMR data (avail), discussed with nursing, discussed with case mgmt, reviewed images, amended to note Attending Assessment/Plan: Patient resting comfortably in bed. Has some dicomfort in Rt LE. Otherwise does not offer anyother complaints. Recommendations: 1. Continue with Cardura & metoprolol home dose. 2. Hold Bumex until the electrolyte panel from today is back normal, as patient' s Cr 1.2-1.3 in December 2016 & he looks dehydrated on exam. 3. C/w accuchecks, NSSand Levemir 50 Units at night. Follow up accuchecks and make necessary changes in the regimen. 4. Hold Coumadin today,, check INR in am and dose coumadin accordingly. As per the pt his coumadin dose was recently increased by his PCP to 5mg sj as his INR levels were subtherapeutic. Before he took 5mgs everyday except Wednesdays when he took 2.5mg. 5. DVT PX- Supratherapeutic INR, on Coumadin 6. DNR/I
[2017-02-11 19:22] LABS: ABSOLUTE BASOPHIL COUNT 0 /CUMM (0.0-0.2); ABSOLUTE EOSINOPHIL COUNT 0.4 /CUMM (0.0-0.7); ABSOLUTE LYMPH COUNT 1.6 /CUMM (1.2-3.4); ABSOLUTE MONOCYTE COUNT 0.7 /CUMM (0.10-0.60); BASOPHIL % 0.4 % (0.0-2.0); EOSINOPHIL % 3.9 % (0-5); GRANULOCYTE % 71.8 % (42.2-75.2); HEMATOCRIT 32.4 % (42-52); MEAN CORPUSCULAR HGB 29.8 PG (27.0-31.0); MEAN CORPUSCULAR HGB CONC 32.6 G/DL (33.0-37.0); MEAN CORPUSCULAR VOLUME 91.5 FL (80.0-94.0); MEAN PLATELET VOLUME 8.5 FL (7.4-10.4); PLATELET COUNT 346 /CUMM (130-400); RBC DISTRIBUTION WIDTH 16.5 % (11.5-14.5); RED BLOOD CELL CT 3.55 /CUMM (4.70-6.10); WHITE BLOOD CELL COUNT 9.8 /CUMM (4.8-10.8)
[2017-02-11 22:06] VITALS: BP 130/66
[2017-02-12 07:06] VITALS: BP 110/64
[2017-02-12 08:41] LABS: PT 35.4 SEC (9.4-12.5)
--- NOTE | 2017-02-12 12:50 | PN- Podiatry ---
Subjective Subjective: Patient seen at bedside with no acute complaints overnight. Patient denies nausea vomiting fever chills. Patient denies any significant right ankle pain. Objective Vital Signs and I&Os Vital Signs Date Time Temp Pulse Resp B/P Pulse O2 O2 Flow FiO2 Ox Delivery Rate 02/12 0851 92 130/70 02/12 0706 99.5 94 20 110/64 92 Room Air 02/11 2206 98.9 98 20 130/66 92 Room Air 02/11 1445 98.2 75 20 118/64 94 Room Air Intake & Output 02/12 1600 02/12 0800 02/12 0000 02/11 1600 02/11 0800 02/11 0000 Intake Total 270 390 Output Total 200 200 Balance 70 190 Intake, IV 150 150 Intake, Oral 120 240 Output, Urine 200 200 Patient 235 lb Weight Physical Exam: Dressing right ankle clean dry and intact. No strikethrough identified. No pain with deep palpation bilateral lower extremity. Assessment/Plan Assessment/Plan Right ankle osteomyelitis. Continue IV Ancef. Follow-up cultures. Continue medical management per hospitalist service. Follow-up INR tomorrow with a goal of less than 2 by Tuesday. Core Measures/Miscellaneous Venous Thromboembolism VTE Risk Factors: Age > 40, Immobility, paresis, Surgery VTE Contraindications: No Contraindications VTE Diagnosis: No Beta Mikal Is Beta Mikal a Home Med? Yes Antibiotics Is Patient on Antibiotics? Yes If Yes: infection Attending MD Review Statement Attending Statement Attending MD Statement: examined this patient
[2017-02-12 13:25] VITALS: BP 112/60
--- NOTE | 2017-02-12 18:14 | PN- Att Addend ---
Attending Addendum Attending Brief Note S: The patient has no specific complaints at present. O: VS: Vital Signs Date Time Temp Pulse Resp B/P Pulse O2 O2 Flow FiO2 Ox Delivery Rate 02/12 1600 Room Air 02/12 1325 98.3 70 20 112/60 95 Room Air 02/12 0851 92 130/70 02/12 0800 Room Air 02/12 0706 99.5 94 20 110/64 92 Room Air 02/11 2206 98.9 98 20 130/66 92 Room Air Intake & Output 02/12 1600 02/12 0800 02/12 0000 Intake Total 800 270 390 Output Total 175 200 200 Balance 625 70 190 Intake, IV 150 150 Intake, Oral 800 120 240 Output, Urine 175 200 200 Current Medications Sig/Fabricio Start time Last Medication Dose Route Stop Time Status Admin Allopurinol 300 MG DAILY 02/12 1000 AC 02/12 PO 0850 Cefazolin Sodium 2,000 MG Q8H 02/11 1430 AC 02/12 Sodium Chloride 100 ML IV 1530 Doxazosin Mesylate 2 MG DAILY 02/12 1000 AC 02/12 PO 0851 Gabapentin 300 MG TID 02/11 1600 AC 02/12 PO 1706 Insulin Aspart 0 TIDAC 02/11 1700 AC 02/12 SC 1706 Insulin Detemir 50 UNITS AT BEDTIME 02/11 2200 AC 02/11 SC 2159 Metoprolol Tartrate 25 MG DAILY 02/12 1000 AC 02/12 PO 0851 Simvastatin 20 MG AT BEDTIME 02/11 2200 AC 02/11 PO 2159 Physical Exam: HEENT: ozzy- slightly dry mucosa Chest: clear Cor: RRR, nl S1, S2 w/o murm Abd: BS+, soft, NT Ext: right foot dressing intact (examined by Dr. Machuca) Labs/Tests: Laboratory Tests 02/12/17 0820: PT 35.4 H, INR 3.41 H 02/11/17 1855: CBC w Diff NO MAN DIFF REQ, RBC 3.55 L, MCV 91.5, MCH 29.8, RDW 16.5 H, MPV 8.5, Gran % 71.8, Lymphocytes % 16.7 L, Monocytes % 7.2, Eosinophils % 3.9, Basophils % 0.4, Absolute Granulocytes 7.0 H, Absolute Lymphocytes 1.6, Absolute Monocytes 0.7 H, Absolute Eosinophils 0.4, Absolute Basophils 0, PUBS MCHC 32.6 L 02/11/17 1655: Anion Gap 13, Estimated GFR 58 L, BUN/Creatinine Ratio 20.8 02/11/17 1011: PT 33.3 H, INR 3.21 H glucose 223, 118, 133, 141 Impression/Plan: #Right Foot Infection- afebrile. Plan: Await cultures as per Dr. Machuca and ID. #Coagulopathy- INR still elevated (slightly increased since yesterday) in spite of no Coumadin. Dr. Machuca plans back to OR Thursday 02/15 and would prefer INR to be < 2. Plan: No coumadin tonight. Recheck in morning. If still elevated will give low dose of Vitamin K. #DM2- sugars improved on current insulin. Plan: Will continue to monitor insulin and adjust as needed. #HTN- BP stable. Plan: Continue Metoprolol. #HL- on statin. Plan: Continue statin. #MAGALY- improved, however still appears dry clinically. Plan: Continue to hold Bumex and recheck BEP tomorrow.
[2017-02-12 21:41] VITALS: BP 120/60
[2017-02-13 06:52] VITALS: BP 130/70
--- NOTE | 2017-02-13 11:41 | PN- Podiatry ---
Subjective Subjective: Patient seen at bedside with no new complaints. Patient afebrile overnight. Objective Vital Signs and I&Os Vital Signs Date Time Temp Pulse Resp B/P Pulse O2 O2 Flow FiO2 Ox Delivery Rate 02/13 1018 96 126/70 02/13 0652 98.9 72 20 130/70 92 Room Air 02/12 2141 98.1 83 20 120/60 95 02/12 1600 Room Air 02/12 1325 98.3 70 20 112/60 95 Room Air Intake & Output 02/13 1600 02/13 0800 02/13 0000 02/12 1600 02/12 0800 02/12 0000 Intake Total 130 960 800 270 390 Output Total 200 500 600 175 200 200 Balance -200 -370 360 625 70 190 Intake, IV 130 260 150 150 Intake, Oral 0 700 800 120 240 Number 0 Bowel Movements Output, Urine 200 500 600 175 200 200 Physical Exam: Dressing the right foot clean dry and intact. No strikethrough identified. No pain with deep palpation bilateral lower extremities. Assessment/Plan Assessment/Plan Right ankle osteomyelitis. Follow-up sensitivities. Continue IV antibiotics per ID recommendations. Continue medical management per hospitalist service. Patient to the OR Tuesday for revision and wound VAC right ankle. Core Measures/Miscellaneous Venous Thromboembolism VTE Risk Factors: Age > 40, Immobility, paresis, Surgery VTE Contraindications: No Contraindications VTE Diagnosis: No Beta Mikal Is Beta Mikal a Home Med? Yes Antibiotics Is Patient on Antibiotics? Yes If Yes: infection Attending MD Review Statement Attending Statement Attending MD Statement: examined this patient
[2017-02-13 14:00] VITALS: BP 112/58
--- NOTE | 2017-02-13 19:33 | PN- Att Addend ---
Attending Addendum Attending Brief Note S: The patient is w/o complaint except some constipation. O: VS: Vital Signs Date Time Temp Pulse Resp B/P Pulse O2 O2 Flow FiO2 Ox Delivery Rate 02/13 1400 98.6 80 16 112/58 93 Room Air 02/13 1018 96 126/70 02/13 0652 98.9 72 20 130/70 92 Room Air 02/12 2141 98.1 83 20 120/60 95 Intake & Output 02/13 1600 02/13 0800 02/13 0000 Intake Total 900 130 960 Output Total 200 500 600 Balance 700 -370 360 Intake, IV 100 130 260 Intake, Oral 800 0 700 Number 0 0 Bowel Movements Output, Urine 200 500 600 Current Medications Sig/Fabricio Start time Last Medication Dose Route Stop Time Status Admin Allopurinol 300 MG DAILY 02/12 1000 AC 02/13 PO 1018 Bumetanide 1.5 MG QAM 02/13 1200 AC 02/13 PO 1423 Cefazolin Sodium 2,000 MG Q8H 02/11 1430 AC 02/13 Sodium Chloride 100 ML IV 1425 Doxazosin Mesylate 2 MG DAILY 02/12 1000 AC 02/13 PO 1018 Gabapentin 300 MG TID 02/11 1600 AC 02/13 PO 1600 Insulin Aspart 0 TIDAC 02/11 1700 AC 02/13 SC 1701 Insulin Detemir 50 UNITS AT BEDTIME 02/11 2200 AC 02/12 SC 2157 Magnesium Hydroxide 30 ML DAILY PRN 02/13 1200 AC 02/13 PO 1424 Metoprolol Tartrate 25 MG DAILY 02/12 1000 AC 02/13 PO 1018 Senna/Docusate Sodium 1 TAB BID PRN 02/12 2230 AC 02/13 PO 1028 Simvastatin 20 MG AT BEDTIME 02/11 2200 AC 02/12 PO 2157 Physical Exam: HEENT: ozzy- slightly dry mucosa Chest: clear Cor: RRR, nl S1, S2 w/o murm Abd: BS+, soft, NT Ext: right foot dressing intact (examined by Dr. Machuca) Labs/Tests: Laboratory Tests 02/13/17 0640: Anion Gap 8, Estimated GFR > 60, BUN/Creatinine Ratio 15.5, PT 22.0 H, INR 2.11 H Glu 182 this am Impression/Plan: #Right Foot Infection- afebrile. Culture growing Proteus, beta strep, enterococcus. Plan: Await cultures as per Dr. Machuca and ID input. Continue Ancef. #Coagulopathy- INR 2.[address] Machuca wants < 2 for surgery Thursday 02/15. Plan: No coumadin tonight. Recheck in morning. If subtherapeutic consider giving a dose of Lovenox. #DM2- sugars improved on current insulin. Plan: Will continue to monitor insulin and adjust as needed. #HTN- BP stable. Plan: Continue Metoprolol. #HL- on statin. Plan: Continue statin. #MAGALY- improved and BUN back to baseline. Plan: Will restart Bumex today. #Constipation- usually responds well to MOM as per patient. Plan: Will add MOM to regimen and continue colace/senna.
[2017-02-13 21:57] VITALS: BP 140/72
[2017-02-14 07:41] VITALS: BP 120/80
--- NOTE | 2017-02-14 10:40 | PN- Medicine Consult ---
JACQUIE SHAVER,ISABEL 02/14/17 1026: Assessment/Plan Assessment/Plan Assessment: 81-year-old male with past medical history peripheral vascular disease, diabetes , status post resection of the right foot 2 years prior to admission now presents after debridement with biopsy. Clinical picture suggestive osteomylelitis. Microbiology identifiying Proteus, B Streptococcus, and Enterococcus. Remains on cefazolin. Sheduled for OR tomorrow for revision. Right Foot Infection Will continue cefazolin at this time. [facility] has been contacted regarding last hospitalization and what antiboitics were administered at that time. Waiting for records. DM Blood sugars appear adequately condrolled 126, 259, 199, 201, 182 will continue current mangagement. Will need to keep NPO this evening for surgical revision tomorrow. History Of DVT INR 2.11 yesterday. This mornings level still pending. Will need to keep INR below 2 for procedure, will hold coumadin today, and discuss with vascular whether we should start heparin to cover him. HTN Blood pressure stable continue current medication HLD continue statin MAGALY resolved, will continue bumex Constipation remains constipated inspite of MOM addition yesterday. Will give suppository today. Plan: Right Foot Infection Will continue cefazolin at this time. [facility] has been contacted regarding last hospitalization and what antiboitics were administered at that time. Waiting for records. DM Blood sugars appear adequately condrolled 126, 259, 199, 201, 182 will continue current mangagement. Will need to keep NPO this evening for surgical revision tomorrow. History Of DVT INR 2.11 yesterday. This mornings level still pending. Will need to keep INR below 2 for procedure, will hold coumadin today, and discuss with vascular whether we should start heparin to cover him. HTN Blood pressure stable continue current medication HLD continue statin MAGALY resolved, will continue bumex Constipation remains constipated inspite of MOM addition yesterday. Will give suppository today. Problem List: 1. Diabetes 2. HLD (hyperlipidemia) 3. Gout 4. HTN (hypertension) 5. Hx of deep venous thrombosis 6. Other acute osteomyelitis, right ankle and foot Subjective Subjective: Reports ongoing constipation this morning. Feels well otherwise. Review of Systems Constitutional: Reports: see HPI. Objective Last 24 Hrs of Vital Signs/I&O Vital Signs Date Time Temp Pulse Resp B/P Pulse O2 O2 Flow FiO2 Ox Delivery Rate 02/14 1059 84 120/54 02/14 0741 98.4 72 18 120/80 96 Room Air 02/14 0000 98 Room Air 02/13 2157 99.4 74 20 140/72 98 02/13 1400 98.6 80 16 112/58 93 Room Air Intake & Output 02/14 1600 02/14 0800 02/14 0000 Intake Total 250 630 Output Total 800 325 Balance -550 305 Intake, IV 150 150 Intake, Oral 100 480 Number 0 Bowel Movements Output, Urine 800 325 Physical Exam General Appearance: well developed/nourished, no apparent distress, alert Head: atraumatic, normal appearance Neck: normal inspection, supple Cardiovascular: regular rate/rhythm Respiratory: normal breath sounds, lungs clear Peripheral Pulses: 2+ radial (R), 2+ radial (L), 1+ dorsalis pedis (L) Abdomen: normal bowel sounds, soft Extremities: rt dressing intact (followed by Dr. Machuca) Neurologic/Psychiatric: awake, alert, oriented x 3 Current Medications: Current Medications Sig/Fabricio Start time Last Medication Dose Route Stop Time Status Admin Allopurinol 300 MG DAILY 02/12 1000 AC 02/14 PO 1058 Bisacodyl 10 MG ONCE ONE 02/14 1045 DC 02/14 MO 02/14 1046 1103 Bumetanide 1.5 MG QAM 02/13 1200 AC 02/14 PO 1059 Cefazolin Sodium 2,000 MG Q8H 02/11 1430 AC 02/14 Sodium Chloride 100 ML IV 0622 Doxazosin Mesylate 2 MG DAILY 02/12 1000 AC 02/14 PO 1058 Gabapentin 300 MG TID 02/11 1600 AC 02/14 PO 1059 Insulin Aspart 0 TIDAC 02/11 1700 AC 02/14 SC 0801 Insulin Detemir 50 UNITS AT BEDTIME 02/11 2200 AC 02/13 SC 2144 Magnesium Hydroxide 30 ML DAILY PRN 02/13 1200 AC 02/13 PO 1424 Metoprolol Tartrate 25 MG DAILY 02/12 1000 AC 02/14 PO 1059 Senna/Docusate Sodium 1 TAB BID PRN 02/12 2230 AC 02/13 PO 1028 Simvastatin 20 MG AT BEDTIME 02/11 2200 AC 02/13 PO 2144 Results Last 24 Hrs Lab/Maikel Results: none Recent Imaging Studies: 1. The outer cortex of the right lateral malleolus shows ill-defined cortical outline, new since prior study dated 02/02/2017, seen underlying the large soft tissue ulcer, may represent changes secondary to developing osteomyelitis versus reactive changes. 2. Extensive persistent soft tissue swelling around the right ankle, visualized part of the right foot. 3. 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 YOEL SHAVER,MILTON 02/14/17 1106: Attending MD Review Statement Attending Sign Off Attending Cosign Statement: I have: examined this patient, reviewed [facility] EMR data, personally reviewd images, discussd w/resident/PA/VOCATIONAL PSYCHOLOGIST, discussed mgmt plan w/fr[place], discussed mgmt plan w/pt, agreed w/resident/PA/VOCATIONAL PSYCHOLOGIST, amended to note. Other Findings: Patient seen and examined, the only complaint he has is that that he's constipated. He denies any aches or pains. His right foot is wrapped in Catarino wrap. He is scheduled to go to OR again tomorrow. Vital Signs Date Time Temp Pulse Resp B/P Pulse O2 O2 Flow FiO2 Ox Delivery Rate 02/14 0741 98.4 72 18 120/80 96 Room Air 02/14 0000 98 Room Air 02/13 2157 99.4 74 20 140/72 98 02/13 1400 98.6 80 16 112/58 93 Room Air on exam; aox3, nad. cv; s1,s2, rrr resp; clear abd; soft, nt, bs+ ext;+ catarino wrap on right foor. Labs: pending. Assessment and recommendations: 81 y/o M with pmh sig for hypertension, diabetes, gout, spinal stenosis with bilateral lower extremity weakness right greater than left, peripheral vascular disease, who is admitted under podiatry service for the right ankle and foot ostium myelitis status post debridement and biopsy was obtained and cultures growing multiple organisms including enterococcus. Currently patient getting treated with Ancef. He is complain of constipation. Patient will be given a suppository. He is scheduled to go to operating room again tomorrow. Goal INR is less than 2. Please confirm with Dr. Gem Kerns who is patient's vascular surgeon to see if patient needs to be bridged with IV heparin once his INR is less than 2. Currently on Ancef. Infectious disease on board. Please obtain records from [facility]. Blood sugars stable. Patient be kept nothing by mouth midnight the night and should be started on D5 NS IV fluids at a gentle rate. Continue all other current medications. Today's INR is still pending. Thank you very much will follow.
--- NOTE | 2017-02-14 12:31 | PN- Infect Dx ---
See Addendum Subjective Subjective: Afebrile without complaints Objective Last 24 Hrs of Vital Signs/I&O Vital Signs Date Time Temp Pulse Resp B/P Pulse O2 O2 Flow FiO2 Ox Delivery Rate 02/14 1059 84 120/54 02/14 0741 98.4 72 18 120/80 96 Room Air 02/14 0000 98 Room Air 02/13 2157 99.4 74 20 140/72 98 02/13 1400 98.6 80 16 112/58 93 Room Air Intake & Output 02/14 1600 02/14 0800 02/14 0000 Intake Total 250 630 Output Total 800 325 Balance -550 305 Intake, IV 150 150 Intake, Oral 100 480 Number 0 Bowel Movements Output, Urine 800 325 Patient 234 lb Weight Physical Exam Other Physical Findings: He appears comfortable in no acute distress Extremities right foot dressing intact Results Last 24 Hours of Lab Results: Laboratory Tests 02/14 1215 Coagulation PT Pending INR Pending Last 24 Hours of Maikel Results: OR cultures February 11 labeled right ankle bone and soft tissue positive for Group G strep, Enterococcus, sensitivities pending, and Proteus sensitive to all antibiotics Assessment/Plan Impression: Stable status post I&D to the deep fascia of the right foot and ankle and 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 As he is nonambulatory (because of right leg weakness) a BKA or AKA should be considered, as this will avoid the need for a prolonged course of IV antibiotics as well as further management for what has been a nonhealing ulcer. With regard to antibiotics he reports a remote penicillin allergy and records from [facility], where he reports having received a penicillin derivative 2 years ago, have been requested. Suggestion: 1. Await records from [facility] regarding antibiotics he received there 2 years ago 2. Podiatry follow-up regarding possible right BKA/AKA 3. Vascular surgery evaluation of his nonhealing left groin wound 4. Follow-up final OR cultures 5. Discontinue Cefazolin 6. Begin Meropenem 1 g IV every 8 hours pending above
[2017-02-14 12:52] LABS: PT 16.2 SEC (9.4-12.5)
[2017-02-14 14:02] VITALS: BP 100/60
--- NOTE | 2017-02-14 19:46 | PN- Podiatry ---
Subjective Subjective: No complaints. Denies nausea, vomiting, fever or chills. Objective Vital Signs and I&Os Vital Signs Date Time Temp Pulse Resp B/P Pulse O2 O2 Flow FiO2 Ox Delivery Rate 02/14 1402 98.4 73 20 100/60 96 Room Air 02/14 1059 84 120/54 02/14 0741 98.4 72 18 120/80 96 Room Air 02/14 0000 98 Room Air 02/13 2157 99.4 74 20 140/72 98 Intake & Output 02/14 1600 02/14 0800 02/14 0000 02/13 1600 02/13 0800 02/13 0000 Intake Total 480 250 630 900 130 960 Output Total 800 325 200 500 600 Balance 480 -550 305 700 -370 360 Intake, IV 0 150 150 100 130 260 Intake, Oral 480 100 480 800 0 700 Number 3 0 0 0 Bowel Movements Output, Urine 800 325 200 500 600 Patient 227 lb Weight Physical Exam: Dressing clean, dry and intact. No pain b/l lower extremities. Assessment/Plan Assessment/Plan Right ankle osteomyelitis. Pt to OR tomorrow. Discussed possible need for proximal amputation. NPO past midnight. Core Measures/Miscellaneous Venous Thromboembolism VTE Risk Factors: Age > 40, Immobility, paresis, Surgery VTE Contraindications: No Contraindications VTE Diagnosis: No Beta Mikal Is Beta Mikal a Home Med? Yes Antibiotics Is Patient on Antibiotics? Yes If Yes: infection Attending MD Review Statement Attending Statement Attending MD Statement: examined this patient
[2017-02-14 22:49] VITALS: BP 102/60
[2017-02-15 00:33] LABS: PTT 38 SEC (25-37)
[2017-02-15 06:17] VITALS: BP 100/58
--- NOTE | 2017-02-15 08:19 | ULTRASOUND REPORT ---
EXAMINATION: US-BILAT LOW EXTR ARTERIAL DOP CLINICAL INFORMATION: Nonhealing ulcer right ankle. COMPARISON: 01/08/2017 TECHNIQUE: Real-time ultrasound and Doppler techniques (integrating B-mode 2-D vascular images, Doppler spectral analysis and color flow Doppler imaging) were utilized to interrogate the lower extremities. FINDINGS: Right lower extremity: Common femoral artery: 76.2 cm/sec; monophasic waveform Superficial femoral artery proximal: 111 cm/sec; monophasic waveform Superficial femoral artery mid portion: 75.0 cm/sec; monophasic waveform Superficial femoral artery distal: 111 cm/sec; monophasic waveform Profunda artery: 40.7 cm/sec; monophasic waveform Popliteal artery: 20.3 cm/sec; monophasic waveform Posterior tibial artery: 13.6 cm/sec; monophasic waveform Anterior tibial artery: 65.6 cm/sec; monophasic waveform Dorsalis pedis artery: Unable to be visualized due to bandaging. ADDITIONAL FINDINGS: None. IMPRESSION: Diffusely monophasic waveforms throughout the right lower extremity suggestive of significant peripheral arterial disease. The arteries of the right lower extremity maintain patency. The dorsalis pedis artery was unable to be investigated due to the presence of bandaging. Greater sensitivity and specificity can be obtained with pre-and post exercise PVRs with ALEX calculations. Also consider dedicated CTA for further anatomical detail.
[2017-02-15 08:28] LABS: PTT 68 SEC (25-37)
--- NOTE | 2017-02-15 08:41 | PN- Medicine Consult ---
JACQUIE SHAVER,ISABEL 02/15/17 0821: Assessment/Plan Assessment/Plan Assessment: 81-year-old male with past medical history peripheral vascular disease, diabetes , status post resection of the right foot 2 years prior to admission now presents after debridement with biopsy. Clinical picture suggestive osteomylelitis. Microbiology identifiying Proteus, B Streptococcus, and Enterococcus. Remains on cefazolin. Sheduled for OR tomorrow for revision. Right Foot Infection Antibiotics switched yesterday at the recommendation of Infectious Disease to Unasyn. Low grade temperature reported last night 100.2, he wasnt given any medication and defervesed on his own. Has remained afebrile since. Should he spike a fever, recommend repeat labs and cultures. He is scheduled to the OR this afternoon around 12pm, for revision. Vascular surgery has been contacted for formal evaluation of non-healing ulcer. They are scheduled to see him today. [facility] has been contacted regarding hosptialization in 2014 and what antiboitics were administered at that time. DM Blood sugars appear adequately condrolled 202, 158, 215, 126 He will remain NPO at this time, He is now on Novolin R sliding scale Continue to monitor sugars History Of DVT INR 1.55 yesterday Will need to keep INR below 2 for procedure. He has been started on heparin gtt. this will continue until 10am this morning, he is scheduled for his revision today at 12pm. Dr. Machuca ok with this plan. HTN Blood pressure stable continue current medication HLD continue statin MAGALY resolved, NPO for procedure will continue to hydrate with D5NS @75ml hr and hold bumex this morning. Constipation was constipated inspite of MOM addition over the weekend. Was given a suppository yesterday and had multiple BM yesterday. Plan: Right Foot Infection Antibiotics switched yesterday at the recommendation of Infectious Disease to Unasyn. Low grade temperature reported last night 100.2, he wasnt given any medication and defervesed on his own. Has remained afebrile since. Should he spike a fever, recommend repeat labs and cultures. He is scheduled to the OR this afternoon around 12pm, for revision. Vascular surgery has been contacted for formal evaluation of non-healing ulcer. They are scheduled to see him today. [facility] has been contacted regarding hosptialization in 2014 and what antiboitics were administered at that time. DM Blood sugars appear adequately condrolled 202, 158, 215, 126 He will remain NPO at this time, He is now on Novolin R sliding scale Continue to monitor sugars History Of DVT INR 1.55 yesterday Will need to keep INR below 2 for procedure. He has been started on heparin gtt. this will continue until 10am this morning, he is scheduled for his revision today at 12pm. Dr. Machuca ok with this plan. HTN Blood pressure stable continue current medication HLD continue statin MAGALY resolved, NPO for procedure will continue to hydrate with D5NS @75ml hr and hold bumex this morning. Constipation was constipated inspite of MOM addition over the weekend. Was given a suppository yesterday and had multiple BM yesterday. Problem List: 1. Foot ulcer 2. Diabetes 3. HLD (hyperlipidemia) 4. Gout 5. HTN (hypertension) 6. Hx of deep venous thrombosis Subjective Subjective: Reports feeling well this morning. No complaints overnight. Awaiting revision that is scheduled this afternoon. Stomach less bloated after bowel movements yesterday Review of Systems Constitutional: Reports: see HPI. Objective Last 24 Hrs of Vital Signs/I&O Vital Signs Date Time Temp Pulse Resp B/P Pulse O2 O2 Flow FiO2 Ox Delivery Rate 02/15 0617 98.3 84 20 100/58 94 Room Air 02/14 2249 100.2 85 20 102/60 93 Room Air 02/14 1402 98.4 73 20 100/60 96 Room Air 02/14 1059 84 120/54 Intake & Output 02/15 1600 02/15 0800 02/15 0000 Intake Total 450 480 Output Total 200 50 Balance 250 430 Intake, IV 450 Intake, Oral 480 Number 1 Bowel Movements Output, Urine 200 50 Physical Exam General Appearance: well developed/nourished, no apparent distress, alert, awake , comfortable, obese Head: atraumatic, normal appearance Neck: normal inspection, supple Cardiovascular: regular rate/rhythm Respiratory: normal breath sounds, quiet respiration, lungs clear Peripheral Pulses: 2+ radial (L) Abdomen: normal bowel sounds, soft, non-tender Extremities: no edema, Rt dressing intact (surgical revision planned today) Neurologic/Psychiatric: awake, alert, oriented x 3 Current Medications: Current Medications Sig/Fabricio Start time Last Medication Dose Route Stop Time Status Admin Allopurinol 300 MG DAILY 04/15 1000 AC 02/14 PO 1058 Ampicillin Sodium/ 3,000 MG Q6H 02/14 1630 AC 02/15 Sulbactam Sodium IV 0446 Sodium Chloride 100 ML Ampicillin Sodium/ 3,000 MG Q6 02/14 1328 CAN Sulbactam Sodium IV Sodium Chloride 100 ML Bisacodyl 10 MG ONCE ONE 02/14 1045 DC 02/14 AL 02/14 1046 1103 Bumetanide 1.5 MG QAM 02/13 1200 DC 02/14 PO 1059 Cefazolin Sodium 2,000 MG Q8H 02/11 1430 DC 02/14 Sodium Chloride 100 ML IV 0622 Dextrose/Sodium 1,000 ML Q13H 02/15 0100 AC 02/15 Chloride IV 0159 Doxazosin Mesylate 2 MG DAILY 02/12 1000 AC 02/14 PO 1058 Gabapentin 300 MG TID 02/11 1600 AC 02/14 PO 2211 Heparin Sodium 7,735 UNIT BOLUS ONE 02/15 0110 DC 02/15 (Porcine) IV 02/15 0111 0157 Heparin Sodium 25,000 UNIT Q24H 02/14 1330 AC 02/14 (Porcine) IV 02/15 1000 1718 Sodium Chloride 500 ML Insulin Aspart 0 TIDAC 02/11 1700 DC 02/14 PR 1832 Insulin Detemir 50 UNITS AT BEDTIME 02/11 2200 02/14 SC 2211 Insulin Human Regular 0 Q6 02/15 0715 [facility] Magnesium Hydroxide 30 ML .STK-MED ONE 02/14 1809 DC PO 02/14 1810 Magnesium Hydroxide 30 ML DAILY PRN 02/13 1200 AC 02/14 PO 1808 Metoprolol Tartrate 25 MG DAILY 02/12 1000 AC 02/14 PO 1059 Patient Medication 1 ED .STK-MED ONE 02/14 1315 DC Teaching ED 02/14 1316 Senna/Docusate Sodium 1 TAB BID PRN 02/12 2230 AC 02/13 PO 1028 Simvastatin 20 MG AT BEDTIME 02/11 2200 02/14 PO 2211 Results Last 24 Hrs Lab/Maikel Results: Laboratory Tests 02/15/17 0715: APTT 68 H 02/14/17 2345: APTT 38 H 02/14/17 1215: PT 16.2 H, INR 1.55 H Recent Imaging Studies: Right lower extremity: Common femoral artery: 76.2 cm/sec; monophasic waveform Superficial femoral artery proximal: 111 cm/sec; monophasic waveform Superficial femoral artery mid portion: 75.0 cm/sec; monophasic waveform Superficial femoral artery distal: 111 cm/sec; monophasic waveform Profunda artery: 40.7 cm/sec; monophasic waveform Popliteal artery: 20.3 cm/sec; monophasic waveform Posterior tibial artery: 13.6 cm/sec; monophasic waveform Anterior tibial artery: 65.6 cm/sec; monophasic waveform Dorsalis pedis artery: Unable to be visualized due to bandaging. ADDITIONAL FINDINGS: None. IMPRESSION: Diffusely monophasic waveforms throughout the right lower extremity suggestive of significant peripheral arterial disease. The arteries of the right lower extremity maintain patency. The dorsalis pedis artery was unable to be investigated due to the presence of bandaging. Greater sensitivity and specificity can be obtained with pre-and post exercise PVRs with ALEX calculations. Also consider dedicated CTA for further anatomical detail. YOEL SHAVER,MILTON 02/15/17 1121: Attending MD Review Statement Attending Sign Off Attending Cosign Statement: I have: examined this patient, reviewed [facility] EMR data, personally reviewd images, discussd w/resident/PA/CHRONOMETER ASSEMBLER, discussed mgmt plan w/[place], discussed mgmt plan w/pt, agreed w/resident/PA/CHRONOMETER ASSEMBLER, amended to note. Other Findings: Patient seen and examined, denies any complaints. He did have a small movement yesterday. Patient is awaiting to go back to operating room today. vss. on exam; + kristen wrap on right foot and ankle. Laboratory Tests 02/15 02/14 02/14 0715 2345 1215 Coagulation PT (9.4 - 12.5 SEC) 16.2 H INR (0.90 - 1.17) 1.55 H APTT (25 - 37 SEC) 68 H 38 H Assessment and recommendations: 81 y/o M with pmh sig for hypertension, diabetes, gout, spinal stenosis with bilateral lower extremity weakness right greater than left, peripheral vascular disease, who is admitted under podiatry service for the right ankle and foot osteomyelitis status post debridement and biopsy was obtained and cultures growing multiple organisms including enterococcus. Antibiotics have been switched to Unasyn. As patient to go back to operating room again today for further debridement. Vascular surgery evaluation pending. The packs ultrasound findings were reviewed. Patient might need amputation pending on the debridement. Please discuss with infectious disease about course of antibiotics. If patient needs a longer course that he will require PICC line. Blood sugars are stable. Heparin drip was held 2 hours prior to surgery. He might need to go to rehabilitation upon discharge. Thank you, will follow
--- NOTE | 2017-02-15 10:32 | PN- Infect Dx ---
Subjective Subjective: MAXIMUM TEMPERATURE 100.2. He offers no complaints. Objective Last 24 Hrs of Vital Signs/I&O Vital Signs Date Time Temp Pulse Resp B/P Pulse O2 O2 Flow FiO2 Ox Delivery Rate 02/15 0901 84 100/58 02/15 0617 98.3 84 20 100/58 94 Room Air 02/14 2249 100.2 85 20 102/60 93 Room Air 02/14 1402 98.4 73 20 100/60 96 Room Air 02/14 1059 84 120/54 Intake & Output 02/15 1600 02/15 0800 02/15 0000 Intake Total 450 480 Output Total 200 50 Balance 250 430 Intake, IV 450 Intake, Oral 480 Number 1 Bowel Movements Output, Urine 200 50 Physical Exam Other Physical Findings: He appears comfortable in no acute distress Extremities right foot dressing intact Results Last 24 Hours of Lab Results: Laboratory Tests 02/15 02/14 02/14 0715 2345 1215 Coagulation PT (9.4 - 12.5 SEC) 16.2 H INR (0.90 - 1.17) 1.55 H APTT (25 - 37 SEC) 68 H 38 H Last 24 Hours of Maikel Results: OR culture labeled right ankle soft tissue February 11 positive for Group G strep, Enterococcus sensitive to Ampicillin and Proteus sensitive to all antibiotics tested OR culture labeled right ankle bone February 11 positive for Group C strep, Group G strep, Enterococcus and Proteus Assessment/Plan Impression: Stable status post I&D to the deep fascia of the right foot and ankle 4 days ago with bone biopsy positive for polymicrobial osteomyelitis, now on Unasyn, which he has tolerated in the past and currently. As discussed a BKA or AKA may be an appropriate treatment in this nonambulatory patient as it will avoid the need for a prolonged course of IV antibiotics as well as further management for what has been a nonhealing ulcer. He is scheduled for a return to the OR later today , with the decision regarding amputation to be based on the OR findings. Suggestion: 1. Await return to the OR later today 2. Podiatry and vascular surgery follow-up regarding possible right BKA/AKA based on above 3. Vascular surgery evaluation of his nonhealing left groin wound 4. Continue Unasyn
[2017-02-15 13:55] VITALS: BP 100/60
--- NOTE | 2017-02-15 16:40 | Operative Report ---
Operative/Inv Procedure Report Surgery Date: 02/15/17 Name of Procedure: 1 open incision and drainage deep to the D fashion with exposure of the flexor tendon and tendon sheath 2 distal fibulectomy right ankle 3 intraoperative administration of ankle block anesthesia 4 intraoperative application of negative pressure wound therapy 5 excisional debridement Pre-Operative Diagnosis: 1 open necrotic wound right foot and ankle 2 osteomyelitis right foot and ankle Post-Operative Diagnosis: The same Estimated Blood Loss: less than 50ml Surgeon/Repossessor: JUAN SCHERER DPM Anesthesia: moderate sedation, block Operative/Procedure Note Note: After obtaining informed consent the patient was brought to the operating room and placed on the operating table in the supine position. The patient isn't securely fastened to the operating table utilizing safety belt. After administration of IV sedation, 10 mL of 0.5% Marcaine plain was infiltrated about the patient's right ankle. The right foot and ankle then scrubbed prepped and draped in usual aseptic manner. Attention directed lateral aspect of the right foot and ankle where a large full-thickness necrotic was identified. A 15 blade was utilized sharply revised skin margins. The dissection was then carried down deep to the deep fascia with exposure of the flexor tendon and tendon sheath multiple sites, both proximally and distally. All necrotic nonviable infected tissue sharply evacuated from the wound bed. The dissection was then carried down to the distal fibula where the periosteum was incised reflected. Sagittal bone saw was utilized to resect the distal osseous segment. Specimen sent for pathologic inspection. Nipple was then irrigated with 3 L normal sterile saline infusion 50,000 units of bacitracin. Following this, the foot was redraped and the surgeon's top gloves were exchanged for clean gloves. Any bleeding vessels identified were cauterized or ligated as encountered. Negative pressure wound therapy was then applied followed by Felicity. The patient was noted to tolerate both procedure and anesthesia well and the patient was transported from the operating room to recovery with vital signs stable.
[2017-02-15 17:43] VITALS: BP 100/60
[2017-02-15 22:00] VITALS: BP 120/70
[2017-02-16 06:55] VITALS: BP 110/60
--- NOTE | 2017-02-16 09:26 | PN- Medicine Consult ---
JACQUIE SHAVER,ISABEL 02/16/17 0906: Assessment/Plan Assessment/Plan Assessment: 81-year-old male with past medical history peripheral vascular disease, diabetes , status post resection of the right foot 2 years prior to admission now presents after debridement with biopsy. Clinical picture suggestive osteomylelitis. Microbiology identifiying Proteus, B Streptococcus, and Enterococcus. Remains on unasyn Right Foot Infection Antibiotics switched 02/14/17 at the recommendation of Infectious Disease to Unasyn. Afebrile overnight. Should he spike a fever, recommend repeat labs and cultures. Revision of right foot yesterday, does not appear foot is salvagable. Discussion underway between podiatry and vasucular regarding possiblity of amputation. [facility] has been contacted regarding hosptialization in 2014 and what antiboitics were administered at that time. DM Blood sugars appear adequately condrolled 164, 261, 131,92 He has been placed on carbohyrdate diet with novolog and levemir coverage Continue to monitor sugars History Of DVT Will continue heparin gtt at this time, as surgical date is pending at this time. HTN Blood pressure stable continue current medication HLD continue statin MAGALY resolved continue bumex Constipation resolved Plan: See above Problem List: 1. Diabetes 2. HLD (hyperlipidemia) 3. Gout 4. HTN (hypertension) 5. Hx of deep venous thrombosis 6. Other acute osteomyelitis, right ankle and foot Subjective Subjective: Feels well this morning. Upset regarding the possiblity of amputation of limb Review of Systems Constitutional: Reports: no symptoms. Objective Last 24 Hrs of Vital Signs/I&O Vital Signs Date Time Temp Pulse Resp B/P B/P Pulse O2 O2 Flow FiO2 Mean Ox Delivery Rate 02/16 0655 98.6 84 20 110/60 94 Room Air 02/15 2200 98.3 90 20 120/70 93 02/15 1743 98.1 79 18 100/60 92 Room Air 02/15 1355 98.1 77 22 100/60 94 Intake & Output 02/16 1600 02/16 0800 02/16 0000 Intake Total 340 360 Output Total 300 750 Balance 40 -390 Intake, IV 200 100 Intake, Oral 140 260 Number 1 Bowel Movements Output, Urine 300 750 Physical Exam General Appearance: well developed/nourished, no apparent distress, alert, awake , obese Head: atraumatic, normal appearance Neck: normal inspection, supple Cardiovascular: regular rate/rhythm Respiratory: normal breath sounds, quiet respiration, lungs clear Peripheral Pulses: 2+ radial (R) Abdomen: normal bowel sounds, soft, non-tender, distention Extremities: mild edema right left, Rt dressing intact, surgical revison done yesterday Neurologic/Psychiatric: awake, alert, oriented x 3 Current Medications: Current Medications Sig/Fabricio Start time Last Medication Dose Route Stop Time Status Admin Allopurinol 300 MG DAILY 02/12 1000 AC 02/15 PO 0900 Ampicillin Sodium/ 3,000 MG Q6H 02/14 1630 AC 02/16 Sulbactam Sodium IV 0430 Sodium Chloride 100 ML Bumetanide 1.5 MG QAM 02/16 1000 UNVr PO Dextrose/Sodium 1,000 ML Q13H 02/15 0100 DC 02/15 Chloride IV 0159 Doxazosin Mesylate 2 MG DAILY 02/12 1000 AC 02/15 PO 0901 Gabapentin 300 MG TID 02/11 1600 AC 02/15 PO 2208 Heparin Sodium 25,000 UNIT Q24H 02/16 0930 UNVr (Porcine) IV Sodium Chloride 500 ML Heparin Sodium 25,000 UNIT Q24H 02/14 1330 DC 02/14 (Porcine) IV 02/15 1000 1718 Sodium Chloride 500 ML Insulin Aspart 0 TIDAC 02/15 1700 AC 02/16 SC 0818 Insulin Detemir 50 UNITS AT BEDTIME 02/11 2200 AC 02/15 SC 2213 Insulin Human Regular 0 Q6 02/15 0715 [facility] Magnesium Hydroxide 30 ML DAILY PRN 02/13 1200 AC 02/14 PO 1808 Metoprolol Tartrate 25 MG DAILY 02/12 1000 AC 02/15 PO 0901 Senna/Docusate Sodium 1 TAB BID PRN 02/12 2230 AC 02/13 PO 1028 Simvastatin 20 MG AT BEDTIME 02/11 2200 AC 02/15 PO 2208 Results Last 24 Hrs Lab/Maikel Results: none YOEL SHAVER,MILTON 02/16/17 1135: Attending MD Review Statement Attending Sign Off Attending Cosign Statement: I have: examined this patient, reviewed aval EMR data, personally reviewd images, discussd w/resident/PA/[employer]Y MAKER, discussed mgmt plan w/francisco, discussed mgmt plan w/pt, agreed w/resident/PA/P[employer]ANDY MAKER, amended to note. Other Findings: Patient seen and examined, feels okay. Denies any complaints. Given the operating room yesterday for further debridement off his right foot and ankle wound and now has a wound VAC on. Right BKA or AKA is recommended by the podiatry as well as vascular surgery. Patient was getting IV Unasyn per infectious disease. Vital signs are stable. On exam he does have a wound VAC attached to his right foot which is wrapped in Catarino wrap. Assessment and recommendations: 81 y/o M with pmh sig for hypertension, diabetes, gout, spinal stenosis with bilateral lower extremity weakness right greater than left, peripheral vascular disease, who is admitted under podiatry service for the right ankle and foot osteomyelitis status post debridement and biopsy was obtained and cultures growing multiple organisms including enterococcus and was treated with Unasyn per infectious disease. Patient went back to operating room yesterday for further debridement and now has a wound VAC. Discussed with Dr. Machuca. Right AKA or BKA was recommended by podiatry and vascular surgery. I discussed with Dr. Luke. He is recommending switching patient to Augmentin if he gets discharged. Per vascular surgery, they cannot perform the surgery this week due to busy schedule therefore it will have to be done sometime next week. As discussed with Dr. Machuca, Coumadin will be restarted. Patient should be continued on his home medications. Blood sugars are stable. From medicine standpoint he can be discharged. As discussed with Dr. Machuca, he is planning to discharge the patient today.
[2017-02-16 14:09] VITALS: BP 122/60
--- NOTE | 2017-02-16 14:37 | PN- Infect Dx ---
Subjective Subjective: Afebrile without complaints. Objective Last 24 Hrs of Vital Signs/I&O Vital Signs Date Time Temp Pulse Resp B/P B/P Pulse O2 O2 Flow FiO2 Mean Ox Delivery Rate 02/16 1409 98.5 73 18 122/60 95 Room Air 02/16 1011 88 122/62 02/16 0655 98.6 84 20 110/60 94 Room Air 02/15 2200 98.3 90 20 120/70 93 02/15 1743 98.1 79 18 100/60 92 Room Air Intake & Output 02/16 1600 02/16 0800 02/16 0000 Intake Total 340 360 Output Total 300 750 Balance 40 -390 Intake, IV 200 100 Intake, Oral 140 260 Number 1 Bowel Movements Output, Urine 300 750 Physical Exam Other Physical Findings: He appears comfortable in no acute distress Extremities right foot dressing intact Results Last 24 Hours of Lab Results: No labs from today Last 24 Hours of Maikel Results: No new cultures Recent Imaging Studies: Arterial Doppler of the right leg February 14 reveals diffusely monophasic waveforms throughout the right lower extremity suggestive of significant peripheral arterial disease Assessment/Plan Impression: Stable status post distal fibulectomy and further debridement of the necrotic ulcer of the right ankle yesterday. 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 Suggestion: 1. Await right BKA 2. Continue Unasyn, but, if he is discharged prior to the BKA, can change to Augmentin 875 mg po every 12 hours until his surgery
[2017-02-16 17:58] LABS: PTT 36 SEC (25-37)
[2017-02-16 22:42] VITALS: BP 112/60
[2017-02-17 01:35] LABS: PTT 77 SEC (25-37)
[2017-02-17 06:38] VITALS: BP 122/76
[2017-02-17 08:24] LABS: PT 14.7 SEC (9.4-12.5)
[2017-02-17 09:10] VITALS: BP 122/76
--- NOTE | 2017-02-17 09:11 | PN- Medicine Consult ---
JACQUIE SHAVER,ISABEL 02/17/17 0846: Assessment/Plan Assessment/Plan Assessment: 81-year-old male with past medical history peripheral vascular disease, diabetes , status post resection of the right foot 2 years prior to admission now presents after debridement with biopsy. Clinical picture suggestive osteomylelitis. Microbiology identifiying Proteus, B Streptococcus, and Enterococcus. Remains on unasyn Right Foot Infection Antibiotics switched 02/14/17 at the recommendation of Infectious Disease to Unasyn. Remains afebrile. Should he spike a fever, recommend repeat labs and cultures. Revision of right foot, does not appear foot is salvagable. He is scheduled to undergo AKA or BKA of his right leg next week. We will switch his abx to oral, augmentin as recommended by Infectious Disease upon discharge, he is supposed to go home later today. DM Blood sugars appear adequately condrolled 93, 206, 239, 250, 164 He has been placed on carbohyrdate diet with novolog and levemir coverage Continue to monitor sugars History Of DVT He was placed on heparin gtt yesterday and started on coumadin. We will monitor INR this morning and stop heparin. He will be discharged on coumadin. His INR will need to be closely followed as he was supratherapeutic on arrival. HTN Blood pressure stable continue current medication HLD continue statin MAGALY resolved continue bumex Constipation resolved Plan: See above Problem List: 1. Diabetes 2. HTN (hypertension) 3. Hx of deep venous thrombosis 4. Full code status 5. Other acute osteomyelitis, right ankle and foot Subjective Subjective: Feels well. Ready to go home this afternoon. No complaints. Review of Systems Constitutional: Reports: see HPI. Objective Last 24 Hrs of Vital Signs/I&O Vital Signs Date Time Temp Pulse Resp B/P B/P Pulse O2 O2 Flow FiO2 Mean Ox Delivery Rate 02/17 0638 98.2 81 20 122/76 93 Room Air 02/16 2242 98.8 79 20 112/60 93 Room Air 02/16 1409 98.5 73 18 122/60 95 Room Air 02/16 1011 88 122/62 Intake & Output 02/17 1600 02/17 0800 02/17 0000 Intake Total 372 300 Output Total 400 550 Balance -28 -250 Intake, IV 272 300 Intake, Oral 100 Number 1 Bowel Movements Output, Urine 400 550 Physical Exam General Appearance: well developed/nourished, alert, awake, comfortable, obese Head: atraumatic, normal appearance Neck: normal inspection, supple Cardiovascular: regular rate/rhythm Respiratory: normal breath sounds, lungs clear Peripheral Pulses: 2+ radial (R) Abdomen: normal bowel sounds, soft, non-tender Extremities: Rt foot bandaged, followed by Dr. Galvez Neurologic/Psychiatric: awake, alert, oriented x 3 Current Medications: Current Medications Sig/Fabricio Start time Last Medication Dose Route Stop Time Status Admin Allopurinol 300 MG DAILY 02/12 1000 AC 02/16 PO 1009 Ampicillin Sodium/ 3,000 MG Q6H 02/14 1630 AC 02/17 Sulbactam Sodium IV 0415 Sodium Chloride 100 ML Bumetanide 1.5 MG QAM 02/16 1000 AC 02/16 PO 1414 Doxazosin Mesylate 2 MG DAILY 02/12 1000 AC 02/16 PO 1009 Gabapentin 300 MG TID 02/11 1600 AC 02/16 PO 2141 Heparin Sodium 7,700 UNIT ONCE ONE 02/16 1915 IN 02/16 (Porcine) IV 02/16 191 1947 Heparin Sodium 25,000 UNIT Q24H 02/16 0930 AC 02/17 (Porcine) IV 0357 Sodium Chloride 500 ML Insulin Aspart 0 TIDAC 02/15 1700 02/16 DC 1745 Insulin Detemir 50 UNITS AT BEDTIME 02/11 2200 AC 02/16 SC 2141 Magnesium Hydroxide 30 ML DAILY PRN 02/13 1200 AC 02/14 PO 1808 Metoprolol Tartrate 25 MG DAILY 02/12 1000 AC 02/16 PO 1011 Patient Medication 1 ED .STK-MED ONE 02/16 1403 IN Teaching ED 02/16 1404 Senna/Docusate Sodium 1 TAB BID PRN 02/12 2230 AC 02/13 PO 1028 Simvastatin 20 MG AT BEDTIME 02/11 2200 AC 02/16 PO 2141 Warfarin Sodium 5 MG ONCE ONE 02/16 1700 IN 02/16 PO 02/16 1701 1745 Results Last 24 Hrs Lab/Maikel Results: Laboratory Tests 02/17/17 0651: PT 14.7 H, INR 1.40 H 02/17/17 0105: APTT 77 H 02/16/17 1653: APTT 36 YOEL SHAVER,MILTON 02/17/17 1055: Attending MD Review Statement Attending Sign Off Attending Cosign Statement: I have: examined this patient, reviewed avalbl EMR data, personally reviewd images, discussed mgmt plan w/francisco, discussed mgmt plan w/CM, discussed mgmt plan w/pt, agreed w/resident/PA/H[employer] RES[employer] SUPPORT SPECIALIST, amended to note. Other Findings: Patient seen and examined, was somewhat upset that his ride could not be arranged. He is asking to speak with the welfare case worker so that he can talk about his ride. As mentioned earlier, his vascular procedure could not be performed this admission. This will be done as an outpatient. I have contacted Dr. Gem Kerns who mentioned that his office will contact the patient and set up a date. Dr. Kathleen has asked to risk stratify the patient for the procedure. I've called patient's primary care doctor Dr. Medrano, who is going to look through his records and see if patient had any recent echo done. No documented history of CHF. Try to get records from his primary care doctor's office. With all the available data according to our CRI risk stratification index, patient is at class III risk with 6.6% risk for major cardiac event for high-risk surgery. If there is any report showing that he does have a history of CHF, the risk will go higher. He should be continued on his insulin. His antibiotics will be switched to oral Augmentin as discussed with earlier. Wound VAC needs to be clarified with Dr. Machuca. Patient will be started on Lovenox to bridge with Coumadin as his INR is subtherapeutic. Repeat INR will be checked tomorrow as well as on Tuesday and results should be faxed patient's primary care doctor. From medical standpoint patient is stable for discharge.
--- NOTE | 2017-02-17 11:01 | Surgical Discharge Summary ---
Visit Information Visit Dates Admission Date: 02/11/17 Discharge Date: 02/17/17 History of Present Illness Chief Complaint: Mr. Jordan is an 81-year-old male with a long-standing and nonhealing ulceration to the lateral aspect of his right ankle. The patient had been seen by me in the wound Center for periodic debridements and weekly wound VAC dressing changes. Unfortunately, the patient was noted to develop an overall worsening with a necrotic and probing sinus to the lateral aspect of the right ankle. Patient was admitted for surgical debridement and IV antibiotics. 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 Spouse Services at Home: Home Health Aide, Nursing What is Your Primary Language? Malian Review of Systems: Unremarkable except for that noted in history present illness Hospital Course Course Attending Physician: JUAN SCHERER DPM Primary Care Physician: CINTHYA BALL MD, V. Hospital Course: The patient was admitted for an initial surgical debridement and was noted to have osteomyelitis of both his lateral malleolus and his talus in addition to his calcaneus. The patient was transferred to the floor following the initial debridement for broad-spectrum IV antibiotic coverage. The patient was stable and afebrile during the course of his stay. He returned 0 OR for revision and negative pressure wound therapy. Despite the debridement sutures noted to worsen and given his nonambulatory status this point is likely to go forward with a primary and proximal amputation. Allergies: Coded Allergies: Sulfa (Sulfonamide Antibiotics) (Mild, ITCHING 01/07/17) Penicillins (HAD A REACTION A KID 01/07/17) Disposition Summary Disposition Principal Diagnosis: Osteomyelitis right ankle Additional Diagnosis: Cellulitis right lower extremity Discharge Disposition: home or self care Discharge Instructions General Discharge Information Code Status: Full Code Patient's Diet: 2200 kcal ADA diet Patient's Activity: Daily dressing changes right ankle. Follow-Up Instructions/Appts: Follow-up with Dr. Padilla within 1 week of discharge. Medications at Discharge Discharge Medications: Continue taking these medications: Allopurinol (Allopurinol) 300 MG TABLET 1 Tablet ORAL Every night Comments: Last Taken:01/14/17 Time:9:30 PM Bumetanide (Bumetanide) 1 MG TABLET 1 Tablet ORAL DAILY Comments: Last Taken:01/15/17 Time:9:45 AM Doxazosin Mesylate (Cardura) 2 MG TABLET 1 Tablet ORAL Every night Comments: Last Taken:01/14/17 Time:9:30 PM Metoprolol Tartrate (Metoprolol Tartrate) 25 MG TABLET 1 Tablet ORAL TWICE DAILY Comments: Last Taken:01/15/17 Time:9:45 AM Warfarin Sodium (Coumadin) 5 MG TABLET 1 Tablet ORAL DAILY Comments: Last Taken:01/14/17 9:30 PM Time:MON TUE THUR FRI SAT SUN Simvastatin (Zocor*) 20 MG TABLET 1 Tablet ORAL Every night Comments: LIPITOR GIVEN Gabapentin (Gabapentin) 300 MG CAPSULE 1 Capsule ORAL THREE TIMES DAILY Comments: Last Taken:01/15/17 Time:9:45 AM Metformin HCl (Metformin HCl) 500 MG TABLET 1 Tablet ORAL 5 PM Qty = 90 Comments: NOT GIVEN Attending MD Review Statement Attending Statement Attending MD Statement: examined this patient
[2017-02-17] MEDS ORDERED: AUGMENTIN 875-1 EACH PO (11:53)
[2017-02-17] MEDS ORDERED: LOVENOX100 MG/1 M SC ×2 (11:53→12:46)
[2017-02-17] MEDS ORDERED: COUMADIN4 M1 PO (12:46)
--- NOTE | 2017-02-17 18:27 | ECHOCARDIOGRAM REPORT ---
ABIGAIL GROSS Age: 81 : 1935 Gender: M Exam Date: 02/17/2017 12:09 Exam Location: [place] Ht (in): 72 Wt (lb): 227 BSA: 2.31 BP: 122 / 76 Ordering Physician: ISABLE DHILLON MD Referring Physician: ISABEL DHILLON MD Technologist: Eloy Alberto [facility] Room Number: 222-1 Indications: HYPERTENSION Rhythm: Technical Quality: Good FINDINGS Left Ventricle Normal left ventricular size and wall thickness. Left ventricular ejection fraction is estimated at 50-55 %. Mild global hypokinesis of the left ventricle. No obvious regional wall motion abnormalities. Abnormal relaxation filling pattern of the left ventricle for age (stage 1 diastolic dysfunction). Right Ventricle The right ventricle is normal in size and function. Right Atrium The right atrium is normal in size. Left Atrium The left atrium is normal in size. The interatrial septum is intact. Mitral Valve Mild thickening/calcification of the mitral valve leaflets. No mitral regurgitation. Aortic Valve Focal thickening of the aortic valve cusps. No aortic stenosis. No aortic regurgitation. Tricuspid Valve The tricuspid valve is normal in structure and function. There is trace tricuspid regurgitation. Unable to estimate the right ventricular systolic pressure. Pulmonic Valve Structurally normal pulmonic valve. There is pulmonic regurgitation. Pericardium Normal pericardium without effusion. No pleural effusion. Great Vessels Normal aortic root dimension. The aortic arch and great vessels are well seen and are normal. CONCLUSIONS Left ventricular ejection fraction is estimated at 50-55 %. Mild global hypokinesis of the left ventricle. No obvious regional wall motion abnormalities. Abnormal relaxation filling pattern of the left ventricle for age (stage 1 diastolic dysfunction). The left atrium is normal in size. Mild thickening/calcification of the mitral valve leaflets. No mitral regurgitation. Focal thickening of the aortic valve cusps. No aortic stenosis. Unable to estimate the right ventricular systolic pressure. Kwame Cross M.D. (Electronically Signed) Final Date: 17 February 2017 18:26 MEASUREMENTS (Male / Female) Normal Values 2D ECHO LV Diastolic Diameter PLAX 4.8 cm 4.2 - 5.9 / 3.9 - 5.3 cm LV Systolic Diameter PLAX 3.6 cm 2.1 - 4.0 cm LV Fractional Shortening PLAX 25.0 % 25 - 46 % LV Ejection Fraction 2D Teich 49.4 % IVS Diastolic Thickness 1.0 cm LVPW Diastolic Thickness 1.0 cm LV Relative Wall Thickness 0.4 LVOT Diameter 2.1 cm Aortic Root Diameter 3.0 cm LA Volume 33.0 cm 18 - 58 / 22 - 52 cm DOPPLER AV Peak Velocity 146.0 cm/s AV Peak Gradient 8.5 mmHg AV Mean Velocity 89.7 cm/s AV Mean Gradient 4.0 mmHg AV Velocity Time Integral 26.1 cm LVOT Peak Velocity 97.0 cm/s LVOT Peak Gradient 3.8 mmHg LVOT Mean Velocity 56.1 cm/s LVOT Mean Gradient 2.0 mmHg LVOT Velocity Time Integral 24.6 cm LVOT Stroke Volume 85.2 cm AV Area Cont Eq vti 3.3 cm AV Area Cont Eq pk 2.3 cm MV Peak Velocity 106.0 cm/s MV Peak Gradient 4.5 mmHg MV Mean Velocity 57.3 cm/s MV Mean Gradient 2.0 mmHg Mitral E Point Velocity 71.1 cm/s Mitral A Point Velocity 88.4 cm/s Mitral E to A Ratio 0.8 MV PHT Velocity 99.1 cm/s MV Deceleration [place] 396.0 cm/s MV Pressure Half Time 75.1 ms MV Area PHT 2.9 cm MV Deceleration Time 243.0 ms PV Peak Velocity 124.0 cm/s PV Peak Gradient 6.2 mmHg PV Mean Velocity 86.9 cm/s PV Mean Gradient 4.0 mmHg PV Velocity Time Integral 25.0 cm LV E' Lateral Velocity 11.6 cm/s Mitral E to LV E' Lateral Ratio 6.1 LV E' Septal Velocity 8.5 cm/s Mitral E to LV E' Septal Ratio 8.4
== END 2017-02-17 13:22 | disposition home health service (06) | DRG 629 ==
LOC: ENRESERVTM → ENRESERVDT → STS 02:10 → 2NA 13:10 → PACUH 13:10 → 2NA 14:33 → ENPENDDIS 02-17 11:03 → 2NA 02-17 13:22
PROVIDERS: Internal Medicine; Student in an Organized Health Care Education/Training Program; ADMIT Podiatrist Foot & Ankle Surgery
PROC: 0QBJ0ZX Excision of Right Fibula, Open Approach, Diagnostic (ICD-10-PCS; principal; 2017-02-11)
PROC: 0QBJ0ZZ Excision of Right Fibula, Open Approach (ICD-10-PCS; 2017-02-15)
DX: E11.69 Type 2 diabetes mellitus with other specified complication (principal); M86.171 Other acute osteomyelitis, right ankle and foot; E11.622 Type 2 diabetes mellitus with other skin ulcer; L03.115 Cellulitis of right lower limb; L97.819 Non-pressure chronic ulcer of other part of right lower leg with unspecified severity; I73.9 Peripheral vascular disease, unspecified; Z79.84 Long term (current) use of oral hypoglycemic drugs; E78.5 Hyperlipidemia, unspecified; Z86.711 Personal history of pulmonary embolism; I10 Essential (primary) hypertension; H81.10 Benign paroxysmal vertigo, unspecified ear; M10.9 Gout, unspecified
CPT/HCPCS: 2NAP; 87070; 87075; 36415; 82436; 87071; 87147; 88304; 88307; 93306; J0690; J1644; J1650; J2001; J7042

== ENCOUNTER 2017-02-25 01:46 | Inpatient (IN) | payer OTHER ==
[~2017-02-25] VITALS: Ht 182.9 cm; Wt 103.0 kg
[~2017-02-25 01:46] MED LIST changes: +AUGMENTIN 875-1 EACH PO; +COUMADIN4 M1 PO
[2017-02-25 11:45] LABS: PT 14.4 SEC (9.4-12.5)
--- NOTE | 2017-02-25 17:46 | Admission Core Measures ---
Admission Lab Results I reviewed the following labs: Laboratory Tests 02/25 1120 Coagulation PT (9.4 - 12.5 SEC) 14.4 H INR (0.90 - 1.17) 1.38 H Acute Coronary Syndrome Inclusion Criteria ACS Diagnosis No Inpatient Core Measures LDL Reminder: If No, please order W/I first 24hr of stay Congestive Heart Failure Inclusion Criteria CHF Diagnosis No Cerebrovascular accident Inclusion Criteria CVA/TIA Diagnosis No Inpatient Core Measures Bedside Swallow Eval Reminder: If BSE failed, place ST order Antithrombotic Reminder: Order Antithrombotic Medication by end of day 2 Antithrombotic Reminder: Document Reason Antithrombotic Not ordered by end of day 2 AFIB/Flutter Reminder: If Present, add to problem list AFIB/Flutter Reminder: Order Anticoag Medication for pts with AFIB/Flutter Atherosclerosis Reminder: If Present, add to problem list LDL Reminder: If No, please order W/I first 24hr of stay PT Order Reminder: If No, please order Venous thromboembolism Inpatient Core Measures VTE Risk Factors: Age > 40, Surgery [facility] prophylaxis d/t No contraindications No VTE Pharm Prophylaxis d/t No contraindications Inclusion Criteria - Per Current guidelines, there needs to be overlap - treatment for the first 5 days of Warfarin therapy. - Parenteral Anticoagulation (IV or SC) needs to be - given along with Warfarin therapy. VTE Diagnosis No VTE Type NONE VTE Confirmed by (Test) NONE Problem List As ranked by this Provider includes Assessment & Plan 1. Above knee amputation of right lower extremity 2. Osteomyelitis of lower leg HOME MEDS Home Med List Allopurinol 300 MG TABLET 1 TAB PO QPM GOUT (Reported) Bumetanide 1 MG TABLET 1 TAB PO DAILY WATER PILL (Reported) Doxazosin Mesylate (Cardura) 2 MG TABLET 1 TAB PO QPM BP (Reported) Gabapentin 300 MG CAPSULE 1 CAP PO TID neuropathy (Reported) Metformin HCl 500 MG TABLET 1 TAB PO 1700 DM (Reported) Metoprolol Tartrate 25 MG TABLET 1 TAB PO BID BP (Reported) Simvastatin (Zocor*) 20 MG TABLET 1 TAB PO QPM CHOLESTEROL (Reported) Warfarin Sodium (Coumadin) 4 MG TABLET 1 TAB PO DAILY dvt ppx
[2017-02-25 19:00] VITALS: BP 110/58
--- NOTE | 2017-02-25 19:19 | PN- Vascular Surgery ---
Subjective Subjective: Postop check: Patient seen and examined in his room, he is comfortable lying in bed. "i have some pain but it is manageable" . Objective Vital Signs and I&Os Vital signs stable, afebrile Physical Exam: Well-developed well-nourished no apparent distress. HEENT: Atraumatic, Neck: Supple, Respiratory: No respiratory distress Extremities: Right lower extremity above-knee amputation dressing is clean dry and intact. Neuro: Alert and oriented x3 Psych: Mood affect normal, Skin: Warm and dry, no rash on exposed skin Assessment/Plan Assessment/Plan Postop day #0 status post right lower extremity above-knee amputation secondary to right foot osteomyelitis -pain medication as needed -Dressing change in 3 days by surgical team -Regular diet -DC IV fluids and tolerating by mouth well -perioperative antibiotics -Nonweightbearing right lower extremity -Heparin subcutaneous for DVT prophylaxis starting tomorrow -Continue Amador catheter tonight -Postoperatively, the patient is stable at this time Core Measures/Miscellaneous Venous Thromboembolism VTE Risk Factors: Age > 40, Surgery VTE Contraindications: No Contraindications VTE Diagnosis: No VTE Type: NONE VTE Confirmed by (Test): NONE Beta Mikal Is Beta Mikal a Home Med? No Antibiotics Is Patient on Antibiotics? Yes If Yes: prophylaxis
--- NOTE | 2017-02-25 21:11 | NUR ---
ADMISSION NOTE: PT ARRIVED ON FLOOR AT 1900. A&OX3, RA, VSS, AFEBRILE, NO C/O PAIN, NO DISTRESS. R AKA SUJATHA WRAPED, C,D,I. IV FLUIDS NS @100ML/HR THROUGH LF #18 PLACED IN OR TODAY. PT ORIENTED TO ROOM/FLOOR. SEE ADMISSION ASSESSMENT.
[2017-02-25 22:35] VITALS: BP 112/70
[2017-02-26] VITALS (7 sets, daily range): BP systolic 102–132; BP diastolic 60–70
--- NOTE | 2017-02-26 07:58 | PN- Vascular Surgery ---
Subjective Subjective: POD #1 s/p right AKA. Resting comfortably in bed. No complaints offered. Refusing to go to STR. No N/V, F/C, CP/SOB. Voiding via porter catheter. Objective Vital Signs and I&Os Vital Signs Date Time Temp Pulse Resp B/P B/P Pulse O2 O2 Flow FiO2 Mean Ox Delivery Rate 02/26 0417 97.9 70 20 110/70 92 Room Air 02/26 0046 97.9 72 20 110/70 93 Room Air 02/25 2235 97.9 79 20 112/70 92 Room Air 02/25 223 80 116/62 02/25 2055 Room Air Room Air 02/25 190 98.1 70 20 110/58 96 Room Air Intake & Output 02/26 0000 02/25 1600 02/25 0000 02/24 1600 Intake Total 840 Output Total 250 200 Balance -250 640 Intake, IV 400 Intake, Oral 440 Output, Urine 250 200 Patient 228 lb Weight Weight Estimated Measurement Method Physical Exam: Gen: AAox3 in NAD Cor: S1+S2+ Lungs: CTA mars Abd: soft, NT, ND, BS+x4 Ext: right AKA dressing C/D/I. Minimal tenderness to palpation. Current Medications: Current Medications Sig/Fabricio Start time Last Medication Dose Route Stop Time Status Admin Acetaminophen 650 MG Q6P PRN 02/25 2000 AC PO Acetaminophen 1,000 MG .STK-MED ONE 02/25 1357 DC IV 02/25 1358 Allopurinol 300 MG QPM 02/26 2200 AC PO Atorvastatin Calcium 10 MG 1700 02/26 1700 AC PO Bumetanide 1 MG DAILY 02/26 1000 AC PO Cefazolin Sodium 2,000 MG IQ8 02/25 2300 CAN IV 02/26 0801 Cefazolin Sodium 2 GM Q8H 02/25 2300 DC 02/26 N/A 1 UNIT IV 02/26 07 0625 Docusate Sodium 100 MG BID 02/25 220 AC PO Doxazosin Mesylate 2 MG QPM 02/25 2200 AC 02/25 PO 2230 Fentanyl Citrate 200 MCG .STK-MED ONE 02/25 1357 DC IM 02/25 1358 Gabapentin 100 MG TID 02/25 2200 AC 02/25 PO 2231 Heparin Sodium 5,000 UNIT Q8 02/25 2200 AC 02/26 (Porcine) SC 0626 Hydromorphone HCl 2 MG .STK-MED ONE 02/25 1527 DC IM 02/25 1528 Insulin Human Regular 0 TIDAC/HS 02/25 2100 AC 02/25 SC 2127 Ketamine HCl 50 MG .STK-MED ONE 02/25 1357 DC IM 02/25 1358 Metformin HCl 500 MG AC 02/26 0700 AC 02/26 PO 0659 Metoprolol Tartrate 25 MG BID 02/25 220 AC 02/25 PO 2230 Midazolam HCl 2 MG .STK-MED ONE 02/25 1357 DC IM 02/25 1358 Morphine Sulfate 2 MG Q2P PRN 02/26 2000 AC IV Morphine Sulfate 4 MG Q2P PRN 02/26 2000 AC IV Ondansetron HCl 4 MG Q6P PRN 02/26 2000 AC IV Oxycodone/ 1 TAB Q4P PRN 02/26 2000 AC Acetaminophen PO Oxycodone/ 2 TAB Q4P PRN 02/26 2000 AC Acetaminophen PO Sodium Chloride 1,000 ML Q10H 02/26 2000 DC 02/26 IV 0157 Results Last 48 Hours of Labs: Laboratory Tests 02/26 02/25 0645 1120 Chemistry Sodium (137 - 145 mmol/L) 134 L Potassium (3.5 - 5.1 mmol/L) 4.9 Chloride (98 - 107 mmol/L) 103 Carbon Dioxide (22 - 30 mmol/L) 22 Anion Gap (5 - 16) 9 BUN (9 - 20 mg/dL) 19 Creatinine (0.7 - 1.2 mg/dL) 1.2 Estimated GFR (>60 ml/min) 58 L BUN/Creatinine Ratio (7 - 25 %) 15.8 Coagulation PT (9.4 - 12.5 SEC) Pending 14.4 H INR (0.90 - 1.17) Pending 1.38 H Hematology CBC w Diff Pending WBC Pending RBC Pending Hgb Pending Hct Pending MCV Pending MCH Pending RDW Pending Plt Count Pending MPV Pending PUBS MCHC Pending Assessment/Plan Assessment/Plan A: POD #1 s/p right AKA; AVSS Plan: Dressing change on Tuesday PT/OT consult. No need for STR upon discharge as patient has 24 hour services set up already ( wheelchair bound). Core Measures/Miscellaneous Venous Thromboembolism VTE Risk Factors: Age > 40, Surgery VTE Contraindications: No Contraindications VTE Diagnosis: No VTE Type: NONE VTE Confirmed by (Test): NONE Beta Mikal Is Beta Mikal a Home Med? No Antibiotics Is Patient on Antibiotics? No
[2017-02-26 08:15] LABS: ABSOLUTE BASOPHIL COUNT 0 /CUMM (0.0-0.2); ABSOLUTE EOSINOPHIL COUNT 0 /CUMM (0.0-0.7); ABSOLUTE GRANULOCYTE CT 7.2 /CUMM (1.4-6.5); ABSOLUTE LYMPH COUNT 1.1 /CUMM (1.2-3.4); ABSOLUTE MONOCYTE COUNT 0.3 /CUMM (0.10-0.60); BASOPHIL % 0.4 % (0.0-2.0); EOSINOPHIL % 0.4 % (0-5); GRANULOCYTE % 82.8 % (42.2-75.2); MEAN CORPUSCULAR HGB 30.2 PG (27.0-31.0); MEAN CORPUSCULAR HGB CONC 33.5 G/DL (33.0-37.0); MEAN PLATELET VOLUME 8.9 FL (7.4-10.4); PLATELET COUNT 305 /CUMM (130-400); RBC DISTRIBUTION WIDTH 17.3 % (11.5-14.5); RED BLOOD CELL CT 2.67 /CUMM (4.70-6.10); WHITE BLOOD CELL COUNT 8.7 /CUMM (4.8-10.8)
[2017-02-26 08:24] LABS: PT 13.6 SEC (9.4-12.5)
--- NOTE | 2017-02-26 11:25 | Operative Report ---
Operative/Inv Procedure Report Surgery Date: 02/25/17 Name of Procedure: Right transfemoral amputation Pre-Operative Diagnosis: Chronic, recurring right foot osteomyelitis refractory to antibiotics and multiple debridements Post-Operative Diagnosis: Same Estimated Blood Loss: 200Ml Surgeon/Working Supervisor: DARLIN BARCLAY MD/Catie Jennings Anesthesia: general endotracheal tube Operative/Procedure Note Note: Patient is an 82-year-old gentleman with chronic nonhealing right foot infection and osteomyelitis refractory to debridement and antibiotics. The patient is immobile and uses lift at home for transfers. Given the chronicity of the infection as well as his immobility, an above-knee amputation was discussed with the patient. The nature of the procedure including is possible complications including but not limited to bleeding, infection, blood clots, stroke, and need for re-intervention were discussed. An informed consent was obtained. Patient was taken to the operating room and placed supine on the table. A timeout was called according to the protocol. After satisfactory induction of anesthesia, a Amador catheter was placed. Preoperative antibiotic had been started. Using a scalpel, a fishmouth incision was made above the knee. The incision was carried down through the subcutaneous tissue and fascia using electrocautery. The femoral artery and vein where isolated and ligated and divided with silk sutures. The sciatic nerve was also identified and ligated and divided with 2-0 silk ties. Hemostasis was obtained. The wound was copiously irrigated with sterile saline. Then the stump was closed in 3 layers. First 2-0 Vicryl suture was used to approximate the muscle in an interrupted fashion. Then the fascial layer was closed with 3-0 Vicryl suture in an interrupted fashion. Then interrupted subdermal 3-0 Vicryl sutures were placed to approximate the wound. The skin was then closed with hunter. Sterile dressing was applied. The count at the end of the case was correct. The patient tolerated the procedure well and was transferred to the PACU in stable condition.
--- NOTE | 2017-02-26 11:41 | NUR ---
Physical Therapy: PT referral received; attempt made to see pt for PT initial evaluation. Pt received in supine in NAD; and politely declines PT IE. Pt reports currently has 24 hour assist at home and all recommended DME including mariella lift, and hospital bed. Pt also defers need for home PT; expressing his aide is able to perform all tasks safely. MD/RN made aware.
[2017-02-27 06:49] LABS: ABSOLUTE BASOPHIL COUNT 0 /CUMM (0.0-0.2); ABSOLUTE EOSINOPHIL COUNT 0.2 /CUMM (0.0-0.7); ABSOLUTE GRANULOCYTE CT 5.4 /CUMM (1.4-6.5); ABSOLUTE LYMPH COUNT 2.3 /CUMM (1.2-3.4); ABSOLUTE MONOCYTE COUNT 0.6 /CUMM (0.10-0.60); BASOPHIL % 0.4 % (0.0-2.0); EOSINOPHIL % 1.9 % (0-5); GRANULOCYTE % 63.7 % (42.2-75.2); MEAN CORPUSCULAR HGB 30.1 PG (27.0-31.0); MEAN CORPUSCULAR HGB CONC 33.2 G/DL (33.0-37.0); MEAN CORPUSCULAR VOLUME 90.5 FL (80.0-94.0); MEAN PLATELET VOLUME 8.4 FL (7.4-10.4); PLATELET COUNT 291 /CUMM (130-400); RED BLOOD CELL CT 2.98 /CUMM (4.70-6.10); WHITE BLOOD CELL COUNT 8.5 /CUMM (4.8-10.8)
--- NOTE | 2017-02-27 07:18 | PN- Vascular Surgery ---
Subjective Subjective: Patient seen this morning postoperatively day #2. Reports his pain is under adequate control and is no complaints at the current time. Objective Vital Signs and I&Os Vital Signs Date Time Temp Pulse Resp B/P B/P Pulse O2 O2 Flow FiO2 Mean Ox Delivery Rate 02/26 2149 72 132/64 02/265 98.0 72 20 132/64 96 02/26 1646 98.5 69 20 124/64 95 02/26 1426 98.8 89 20 120/60 98 02/26 1134 98.7 77 19 116/62 96 02/26 0847 73 102/60 02/26 0840 98.2 73 18 102/60 96 Room Air Intake & Output 02/27 0802/27 0000 02/26 1600 02/26 0000 02/25 1600 Intake Total 140 260 650 800 840 Output Total 675 1800 250 200 Balance 140 -415 -1150 550 640 Intake, IV 20 20 100 800 400 Intake, Oral 120 240 550 440 Output, Urine 675 1800 250 200 Patient 228 lb Weight Weight Estimated Measurement Method Physical Exam: Gen.: Alert and in no obvious distress Skin: Warm and dry Extremities: Right lower extremity surgical site with dressing is clean, dry, and intact. Right lower extremity is warm without calf tenderness or significant edema. Assessment/Plan Assessment/Plan Assessment: 81-year-old male status post right [id number]-[id number] amputation postoperative day #2. The patient is progressing as expected and his pain is under adequate control. Plan: First surgical dressing change tomorrow Will call Instrumentation Instructor to apply soft shoe dancer device tomorrow Follow-up labs DC Amador catheter Continue current pain regiment GI and DVT prophylaxis Core Measures/Miscellaneous Venous Thromboembolism VTE Risk Factors: Age > 40, Surgery VTE Contraindications: No Contraindications VTE Diagnosis: No VTE Type: NONE VTE Confirmed by (Test): NONE Beta Mikal Is Beta Mikal a Home Med? No Antibiotics Is Patient on Antibiotics? No
[2017-02-27 07:45] VITALS: BP 98/52
[2017-02-27 14:27] VITALS: BP 100/50
--- NOTE | 2017-02-27 14:37 | NUR ---
PT'S BP RUNNING LOW, SEE VITAL SIGN FLOWSHEET, PO LOPRESSOR HELD, PA ANGELICA AWARE, CONTINUE TO MONITOR
[2017-02-27 14:39] VITALS: BP 100/50
[2017-02-27 21:15] VITALS: BP 110/60
--- NOTE | 2017-02-28 07:31 | PN- Vascular Surgery ---
Subjective Subjective: denies extremity pain. no oob (nonamb at baseline). no n/v/cp/sob. +bm +voids Objective Vital Signs and I&Os Vital Signs Date Time Temp Pulse Resp B/P B/P Pulse O2 O2 Flow FiO2 Mean Ox Delivery Rate 02/27 2153 85 110/60 02/27 2115 98.9 85 20 110/60 96 02/27 1439 98.4 88 20 100/50 94 02/27 1427 98.4 88 20 100/50 94 02/27 1019 70 98/60 02/27 0745 98.2 68 20 98/52 93 Room Air Intake & Output 02/28 0800 02/28 0000 02/27 1600 02/27 0800 02/27 0000 02/26 1600 Intake Total 100 600 140 260 650 Output Total 3207 970 2170 675 1800 Balance -1175 150 -860 -415 -1150 Intake, IV 20 20 100 Intake, Oral 100 600 120 240 550 Output, Urine 9935 308 8960 675 1800 Physical Exam: gen: nad card: s1s2 rrr pulm: no audible wheeze abd: obese soft nt ext: rle stump dressing cdi, nontender. lle foot dsg cdi, palp pt/dt, gross motor intact Assessment/Plan Assessment/Plan POD3 sp R AKA, BP improved (hypotension yest), pain well controlled. PLAN: pt/ot-oob to chair ?call inspector barrel dsg change with fu labs hep sq ada diet po meds will dw attending Core Measures/Miscellaneous Venous Thromboembolism VTE Risk Factors: Age > 40, Surgery VTE Contraindications: No Contraindications VTE Diagnosis: No VTE Type: NONE VTE Confirmed by (Test): NONE Beta Mikal Is Beta Mikal a Home Med? No Antibiotics Is Patient on Antibiotics? No
[2017-02-28 07:38] VITALS: BP 118/70
[2017-02-28 08:03] LABS: ABSOLUTE BASOPHIL COUNT 0 /CUMM (0.0-0.2); ABSOLUTE EOSINOPHIL COUNT 0.2 /CUMM (0.0-0.7); ABSOLUTE GRANULOCYTE CT 5.9 /CUMM (1.4-6.5); ABSOLUTE LYMPH COUNT 2.1 /CUMM (1.2-3.4); ABSOLUTE MONOCYTE COUNT 0.6 /CUMM (0.10-0.60); BASOPHIL % 0.5 % (0.0-2.0); EOSINOPHIL % 2.7 % (0-5); GRANULOCYTE % 66.5 % (42.2-75.2); HEMATOCRIT 28.8 % (42-52); MEAN CORPUSCULAR HGB 29.9 PG (27.0-31.0); MEAN CORPUSCULAR HGB CONC 32.8 G/DL (33.0-37.0); MEAN PLATELET VOLUME 9.3 FL (7.4-10.4); PLATELET COUNT 308 /CUMM (130-400); RBC DISTRIBUTION WIDTH 17.4 % (11.5-14.5); RED BLOOD CELL CT 3.17 /CUMM (4.70-6.10); WHITE BLOOD CELL COUNT 8.9 /CUMM (4.8-10.8)
[2017-02-28 14:15] VITALS: BP 135/82
--- NOTE | 2017-02-28 14:56 | PN- Vascular Surgery ---
Subjective Subjective: Dressing change R AKA wound. No pain, tolerated well. Objective Vital Signs and I&Os Vital Signs Date Time Temp Pulse Resp B/P B/P Pulse O2 O2 Flow FiO2 Mean Ox Delivery Rate 02/28 1415 99.7 91 20 135/82 98 02/28 1019 88 120/68 02/28 0738 98.2 79 20 118/70 94 Room Air 02/27 2153 85 110/60 02/27 2115 98.9 85 20 110/60 96 Intake & Output 02/28 1600 02/28 0802/28 0000 02/27 1600 02/27 0802/27 0000 Intake Total 100 100 600 140 260 Output Total 590 213 6320 450 1000 675 Balance -500 -600 -1175 150 -860 -415 Intake, IV 20 20 Intake, Oral 100 100 600 120 240 Output, Urine 644 045 2314 450 1000 675 Patient 227 lb Weight Physical Exam: Dressing Change: RLE s/p AKA. Dressing removed, dried serosang drainage on dressing. wound assessed, closed with hunter- scant serosang drainage, no active bleeding or purulence. +edema. slightly TTP at incision. Wound edges clean, no necrosis or erythema. Redressed with clean dry dressing and kristen. Toelrated well Assessment/Plan Assessment/Plan POD3 sp R AKLeda, wound healing well, no issues. PLAN: Dr. Galvez to come today to check L foot wound. Foot Gatherer to come today for stump loom fixer assessment. Care coordination for dc planning Core Measures/Miscellaneous Venous Thromboembolism VTE Risk Factors: Age > 40, Surgery VTE Contraindications: No Contraindications VTE Diagnosis: No VTE Type: NONE VTE Confirmed by (Test): NONE Beta Mikal Is Beta Mikal a Home Med? No Antibiotics Is Patient on Antibiotics? No
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
[2017-02-28 22:23] VITALS: BP 118/60
[2017-03-01 06:23] VITALS: BP 114/54
[2017-03-01 08:07] LABS: ABSOLUTE BASOPHIL COUNT 0 /CUMM (0.0-0.2); ABSOLUTE EOSINOPHIL COUNT 0.3 /CUMM (0.0-0.7); ABSOLUTE GRANULOCYTE CT 6.1 /CUMM (1.4-6.5); ABSOLUTE LYMPH COUNT 2.2 /CUMM (1.2-3.4); ABSOLUTE MONOCYTE COUNT 0.5 /CUMM (0.10-0.60); BASOPHIL % 0.4 % (0.0-2.0); EOSINOPHIL % 3.8 % (0-5); HEMATOCRIT 30.6 % (42-52); MEAN CORPUSCULAR HGB 30.1 PG (27.0-31.0); MEAN CORPUSCULAR HGB CONC 33.2 G/DL (33.0-37.0); MEAN CORPUSCULAR VOLUME 90.6 FL (80.0-94.0); MEAN PLATELET VOLUME 9.1 FL (7.4-10.4); PLATELET COUNT 307 /CUMM (130-400); RBC DISTRIBUTION WIDTH 16.8 % (11.5-14.5); RED BLOOD CELL CT 3.38 /CUMM (4.70-6.10); WHITE BLOOD CELL COUNT 9.2 /CUMM (4.8-10.8)
--- NOTE | 2017-03-01 08:17 | PN- Vascular Surgery ---
Subjective Subjective: Patient without complaints, minimal pain to the right stump above-knee amputation site. No fever no flulike illness. Objective Vital Signs and I&Os Vital Signs Date Time Temp Pulse Resp B/P B/P Pulse O2 O2 Flow FiO2 Mean Ox Delivery Rate 03/01 0623 99.1 69 20 114/54 95 Room Air 02/28 2223 99.2 78 20 118/60 94 Room Air 02/28 1415 99.7 91 20 135/82 98 02/28 1019 88 120/68 Intake & Output 03/01 0803/01 0000 02/28 1600 02/28 0000 Intake Total 140 260 600 100 100 Output Total 650 400 492 634 3818 Balance -510 -140 100 -600 -1175 Intake, IV 20 20 0 Intake, Oral 120 240 600 100 100 Number 1 2 Bowel Movements Output, Urine 650 400 244 009 4040 Patient 227 lb Weight Physical Exam: Well-developed well-nourished no apparent distress. HEENT: Atraumatic, extraocular motion intact Neck: Supple, no lymphadenopathy Respiratory: No respiratory distress Extremities: Right lower extremity above the amputation site dressing is clean dry and intact with minimal serous staining lateral aspect of the incision. Staple line is clean and without erythema, there is minimal swelling. Neuro: Alert and oriented x3 Psych: Mood affect normal, normal memory normal judgment. Skin: Warm and dry, no rash on exposed skin Results Last 48 Hours of Labs: Laboratory Tests 03/01 02/28 0650 0634 Chemistry Sodium (137 - 145 mmol/L) 138 Potassium (3.5 - 5.1 mmol/L) 4.1 Chloride (98 - 107 mmol/L) 103 Carbon Dioxide (22 - 30 mmol/L) 25 Anion Gap (5 - 16) 9 BUN (9 - 20 mg/dL) 18 Creatinine (0.7 - 1.2 mg/dL) 1.0 Estimated GFR (>60 ml/min) > 60 BUN/Creatinine Ratio (7 - 25 %) 18.0 Hematology CBC w Diff Pending NO MAN DIFF REQ WBC (4.8 - 10.8 /CUMM) Pending 8.9 RBC (4.70 - 6.10 /CUMM) Pending 3.17 L Hgb (14.0 - 18.0 G/DL) Pending 9.5 L Hct (42 - 52 %) Pending 28.8 L MCV (80.0 - 94.0 FL) Pending 91.0 MCH (27.0 - 31.0 PG) Pending 29.9 RDW (11.5 - 14.5 %) Pending 17.4 H Plt Count (130 - 400 /CUMM) Pending 308 MPV (7.4 - 10.4 FL) Pending 9.3 Gran % (42.2 - 75.2 %) 66.5 Lymphocytes % (20.5 - 51.1 %) 23.9 Monocytes % (1.7 - 9.3 %) 6.4 Eosinophils % (0 - 5 %) 2.7 Basophils % (0.0 - 2.0 %) 0.5 Absolute Granulocytes (1.4 - 6.5 /CUMM) 5.9 Absolute Lymphocytes (1.2 - 3.4 /CUMM) 2.1 Absolute Monocytes (0.10 - 0.60 /CUMM) 0.6 Absolute Eosinophils (0.0 - 0.7 /CUMM) 0.2 Absolute Basophils (0.0 - 0.2 /CUMM) 0 PUBS MCHC (33.0 - 37.0 G/DL) Pending 32.8 L Assessment/Plan Assessment/Plan Postop day #4 status post right [id number] amputation -Dry sterile dressing applied, Instrumentation Fitter applied by myself at the bedside -Follow am labs -Stable for discharge to home today with VNA services if labs OK -Follow up in 1 week with vascular surgery for AKA site, continue instructor warper -Wound care center follow-up with Dr. Machuca in 1 week for the left foot Core Measures/Miscellaneous Venous Thromboembolism VTE Risk Factors: Age > 40, Surgery VTE Contraindications: No Contraindications VTE Diagnosis: No VTE Type: NONE VTE Confirmed by (Test): NONE Beta Mikal Is Beta Mikal a Home Med? No Antibiotics Is Patient on Antibiotics? No
[2017-03-01] MEDS ORDERED: NYSTATIN15 G1 TOP (08:21)
[2017-03-01] MEDS ORDERED: PERCOCET 5-3251 EACH PO (08:21)
--- NOTE | 2017-03-01 08:31 | Patient Discharge Instructions ---
Discharge Instructions General Discharge Information You were seen/treated for: Right lower extremity osteomyelitis, left foot chronic nonhealing wound You had these procedures: Right above-knee amputation Left foot debridement Watch for these problems: Redness, swelling around the incision, fever or flulike illness No bath, but you may shower: Yes (RECOMMEND SPONGE BATH) Other wound care: Daily dressing change: [place] the stump and incision site with Betadine, then apply dry sterile dressing and dianeticist to right stump above the amputation site. Special Instructions: Left foot, keep dressing in place until seen at wound care center week of 03/07 Follow-up with vascular surgeon Dr. Rabago in 1 week Diet Recommended Diet: Diabetic Activity Full Activity/No Limits: No Activity Self Limited: No Activity Limited to: Out of Bed to Chair Other activity limits: Nonweightbearing bilateral lower extremities, strict offloading the left lower extremity Acute Coronary Syndrome Inclusion Criteria At DC or during hospital stay patient has or had the following: ACS DIAGNOSIS No Discharge Core Measures Meds if any: Prescribed or Continued at Discharge Meds if any: NOT Prescribed or Continued at Discharge Congestive Heart Failure Inclusion Criteria At DC or during hospital stay patient has or had the following: CHF DIAGNOSIS No Discharge Core Measures Meds if any: Prescribed or Continued at Discharge Meds if any: NOT Prescribed or Continued at Discharge Cerebrovascular accident Inclusion Criteria At DC or during hospital stay patient has or had the following: CVA/TIA Diagnosis No Discharge Core Measures Meds if any: Prescribed or Continued at Discharge Meds if any: NOT Prescribed or Continued at Discharge Venous thromboembolism Inclusion Criteria VTE Diagnosis No VTE Type NONE VTE Confirmed by (Test) NONE Discharge Core Measures - Per Current guidelines, there needs to be overlap - treatment for the first 5 days of Warfarin therapy. - If discharged on Warfarin prior to 5 days of - overlap therapy, the patient will need to be - assessed for post discharge needs including - *Post discharge parental anticoagulation - *Warfarin and/or parental anticoagulation education - *Follow up date to check INR post discharge At least 5 days overlap therapy as Inpatient No Meds if any: Prescribed or Continued at Discharge Note: Overlap Therapy is Warfarin and Anticoagulant Meds if any: NOT Prescribed or Continued at Discharge
--- NOTE | 2017-03-01 08:40 | Surgical Discharge Summary ---
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 Spouse Services at Home: Home Health Aide, Nursing What is Your Primary Language? Mohawk Review of Systems: see hpi Hospital Course Course Attending Physician: DARLIN BARCLAY MD Primary Care Physician: CINTHYA BALL MD, V. Hospital Course: Patient was admitted, has a nonhealing wound to the right lower extremity with osteomyelitis, chronic. The infection was unable to be controlled with conservative measures and patient, being a non-ambulator, was indicated for right [id number] amputation which was performed on 02/25/2017. Patient tolerated procedure well without complications. His postoperative course was unremarkable. He has been followed by Dr. Machuca from podiatry as well for the left foot chronic wound and he was instructed to be strict offloading and follow-up in wound care center next week. Patient received heparin for subcutaneous DVT prophylaxis, his Coumadin was stopped, he received antibiotics for prophylaxis of infection, his pain is under control. He received a installment dealer from [employer] and this was applied to the right stump site on 03/01. 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 Machuca at the [facility] wound care center next week as well. Dry sterile dressing changes to the right stump, pain with Betadine first, apply dressings and installment dealer wrap daily. Medications at Discharge Discharge Medications: Continue taking these medications: Allopurinol (Allopurinol) 300 MG TABLET 1 Tablet ORAL Every night Comments: Last Taken: 03/01/17 Time: 10:00 PM Bumetanide (Bumetanide) 1 MG TABLET 1 Tablet ORAL DAILY Comments: Last Taken: 03/02/17 Time: 9:30 AM Doxazosin Mesylate (Cardura) 2 MG TABLET 1 Tablet ORAL Every night Comments: Last Taken: 03/01/17 Time: 10:30 PM Metoprolol Tartrate (Metoprolol Tartrate) 25 MG TABLET 1 Tablet ORAL TWICE DAILY Comments: Last Taken: 03/02/17 Time: 9:30 AM Simvastatin (Zocor*) 20 MG TABLET 1 Tablet ORAL Every night Comments: LIPITOR GIVEN IN HOSPITAL Last Taken:02/28/17 Time: 5 PM Gabapentin (Gabapentin) 300 MG CAPSULE 1 Capsule ORAL THREE TIMES DAILY Comments: Last Taken: 03/02/17 Time: 9:30 AM Metformin HCl (Metformin HCl) 500 MG TABLET 1 Tablet ORAL 5 PM Qty = 90 Comments: Last Taken: 03/02/17 Time: 12:00 PM Start taking the following new medications: Nystatin (Nystatin) 100,000 UNIT/GRAM CREAM..G. 1 Application On the skin THREE TIMES DAILY Qty = 1 No Refills Instructions: APPLY TO GROIN AREA FUNGAL RASH Comments: Last Taken: 03/01/17 Time: 9:00 AM Oxycodone HCl/Acetaminophen (Percocet 5-325 MG Tablet) 5 MG-325 MG TABLET 1-2 Tablet ORAL EVERY 4 HOURS NEEDED as needed for PAIN Qty = 30 No Refills Comments: NOT GIVEN IN HOSPITAL
[2017-03-01 14:30] VITALS: BP 120/78
--- NOTE | 2017-03-01 16:27 | NUR ---
PT HAD 6 LOOSE BM'S, FOUL SMELLING, STOOL CULTURE SENT FOR C-DIFF, FILI KIRBY NOTIFIED, SEE NEW ORDERS
--- NOTE | 2017-03-01 17:22 | NUR ---
WOUND CARE: REQUESTED BY NURSING STAFF TO EVLAUATE PT FOR SKIN ALTERATION TO BUTTOCKS - PT KNOWN TO THIS EMS DIRECTOR FROM [facility] - S/P AMP - PT DENIES C/O PAIN AND DISCOMFORT - PRESENTS WITH NO EVIDENCE OF SKIN ALTERATION TO BUTTOCKS AT THIS TIME - SLIGHT BLANCHABLE PINK DISCOLORATION SIS BUTT/ ISCHIUM RECOMMENDATION: CONT PREVENTATIVE CARE PER FACILITY GUIDELINES PLEASE
--- NOTE | 2017-03-01 18:15 | NUR ---
PER FILI KIRBY, NO IV ACCESS IS OK.
--- NOTE | 2017-03-01 19:34 | NUR ---
PT MOVED TO ROOM 214. FILI KIRBY AWARE. PT TO UPDATE FAMILY
--- NOTE | 2017-03-01 21:50 | NUR ---
PT BLOOD PRESSURE RUNNING LOW 100'S/70. PO 2200 METOPROLOL HELD. SURGICAL PA AWARE. WILL CONTINUE TO MONITOR.
[2017-03-01 22:19] VITALS: BP 110/70
[2017-03-02 06:46] VITALS: BP 114/68
--- NOTE | 2017-03-02 08:54 | PN- Vascular Surgery ---
Subjective Subjective: Patient reporting one softly formed bowel movement overnight. States that he has some residual abdominal cramping. Denies nausea and vomitting. Denies chest pain, shortness of breath and difficulty breathing. Is non-ambulatory. Objective Vital Signs and I&Os Vital Signs Date Time Temp Pulse Resp B/P B/P Pulse O2 O2 Flow FiO2 Mean Ox Delivery Rate 03/02 0646 97.9 89 20 114/68 92 Room Air 03/01 2219 98.3 81 20 110/70 95 Room Air 03/01 2149 110/70 03/01 1430 97.7 90 20 120/78 97 / 0903 96 122/70 Intake & Output 03/02 1600 03/02 0800 03/02 0000 03/01 1600 03/01 0800 03/01 0000 Intake Total 240 480 550 140 260 Output Total 700 375 651 650 400 Balance -460 105 -101 -510 -140 Intake, IV 20 20 Intake, Oral 240 480 550 120 240 Number 3 3 1 Bowel Movements Output, Stool 1 Output, Urine 700 375 650 650 400 Physical Exam: General: Alert and oriented x3. no acute distress Cardiac: RRR, s1s2 Pulm: C TA bilaterally Adomen: Non-tender, non-distended, +bs Extremiteis: Right AKA: Air Transportation Provider in place, dry and intact, left foot dressing dry and intact, distal sensate intact. Assessment/Plan Assessment/Plan Postop day #4 status post right arynu-[id number] amputation -Dry sterile dressing applied, Air Transportation Provider applied at the bedside one day ago -Follow c diff culture -Stable for discharge to home today with VNA services if micro OK -Follow up in 1 week with vascular surgery for AKA site, continue finishing manager -Wound care center follow-up with Dr. Machuca in 1 week for the left foot Core Measures/Miscellaneous Venous Thromboembolism VTE Risk Factors: Age > 40, Surgery VTE Contraindications: No Contraindications VTE Diagnosis: No VTE Type: NONE VTE Confirmed by (Test): NONE Beta Mikal Is Beta Mikal a Home Med? No Antibiotics Is Patient on Antibiotics? No
[2017-03-02 14:13] VITALS: BP 120/62
== END 2017-03-02 15:53 | disposition home health service (06) | DRG 982 ==
LOC: DELPENDDIS → 2NA 01:46 → 2NB 01:46 → SDA 01:46 → ENRESERV 18:01 → 2NA 19:05 → ENPENDDIS 03-01 08:46 → 2NB 03-01 19:35 → ENPENDDIS 03-02 09:03 → 2NB 03-02 15:53
PROVIDERS: Physician Assistant; Physician Assistant Surgical; ADMIT Surgery
PROC: 0Y670ZZ Detachment at Right Femoral Region, Open Approach (ICD-10-PCS; principal; 2017-02-25)
DX: E11.69 Type 2 diabetes mellitus with other specified complication (principal); I48.92 Unspecified atrial flutter; L97.429 Non-pressure chronic ulcer of left heel and midfoot with unspecified severity; M86.671 Other chronic osteomyelitis, right ankle and foot; I48.2 Chronic atrial fibrillation; L97.519 Non-pressure chronic ulcer of other part of right foot with unspecified severity; I73.9 Peripheral vascular disease, unspecified; E11.621 Type 2 diabetes mellitus with foot ulcer; E78.5 Hyperlipidemia, unspecified; I10 Essential (primary) hypertension; Z79.84 Long term (current) use of oral hypoglycemic drugs; Z86.711 Personal history of pulmonary embolism; Z86.718 Personal history of other venous thrombosis and embolism
CPT/HCPCS: 2NASP; 2NBP; 36415; 82436; 86920; 87086; 88307; 97165-GO; J0131; J0690; J1644; J1815; J2405; P9016

== ENCOUNTER 2018-03-26 14:01 | Emergency (ER) | payer OTHER ==
[~2018-03-26] VITALS: Ht 182.9 cm; Wt 99.8 kg
[~2018-03-26 14:01] MED LIST changes: +NYSTATIN15 G1 TOP; +PERCOCET 5-3251 EACH PO
[2018-03-26 15:58] LABS: ABSOLUTE BASOPHIL COUNT 0 /CUMM (0.0-0.2); ABSOLUTE EOSINOPHIL COUNT 0.1 /CUMM (0.0-0.7); ABSOLUTE GRANULOCYTE CT 5.6 /CUMM (1.4-6.5); ABSOLUTE LYMPH COUNT 1.4 /CUMM (1.2-3.4); ABSOLUTE MONOCYTE COUNT 0.5 /CUMM (0.10-0.60); BASOPHIL % 0.1 % (0.0-2.0); EOSINOPHIL % 1.7 % (0-5); GRANULOCYTE % 73.3 % (42.2-75.2); HEMATOCRIT 39.5 % (42-52); MEAN CORPUSCULAR HGB 31.5 PG (27.0-31.0); MEAN CORPUSCULAR HGB CONC 33.4 G/DL (33.0-37.0); MEAN CORPUSCULAR VOLUME 94.4 FL (80.0-94.0); MEAN PLATELET VOLUME 8.2 FL (7.4-10.4); PLATELET COUNT 266 /CUMM (130-400); RBC DISTRIBUTION WIDTH 14.8 % (11.5-14.5); RED BLOOD CELL CT 4.19 /CUMM (4.70-6.10); WHITE BLOOD CELL COUNT 7.6 /CUMM (4.8-10.8)
--- NOTE | 2018-03-26 16:36 | ED ANKLE/FOOT INJURY COMPLAINT ---
History of Present Illness General Chief Complaint: General Adult Stated Complaint: PT STATES WOUND ON LEFT HEEL SEES WORMS ON IT Source: patient Exam Limitations: no limitations Vital Signs & Intake/Output Vital Signs & Intake/Output Vital Signs Date Time Temp Pulse Resp B/P B/P Pulse O2 O2 Flow FiO2 Mean Ox Delivery Rate 03/26 1729 97.2 68 18 132/77 98 Room Air 03/26 1408 96.1 65 16 130/70 97 Room Air ED Intake and Output 03/27 0000 03/26 1200 Intake Total 240 Output Total Balance 240 Intake, Oral 240 Patient 220 lb Weight Weight Reported by Patient Measurement Method Allergies Coded Allergies: Sulfa (Sulfonamide Antibiotics) (Mild, ITCHING 01/07/17) Penicillins (HAD A REACTION A KID 01/07/17) Reconcile Medications Allopurinol 300 MG TABLET 1 TAB PO QPM GOUT (Reported) Bumetanide 1 MG TABLET 1 TAB PO DAILY WATER PILL (Reported) Cephalexin (Keflex) 500 MG CAPSULE 1 CAP PO TID CELLULITIS Doxazosin Mesylate (Cardura) 2 MG TABLET 1 TAB PO QPM BP (Reported) Gabapentin 300 MG CAPSULE 1 CAP PO TID neuropathy (Reported) Metformin HCl 500 MG TABLET 1 TAB PO 1700 DM (Reported) Metoprolol Tartrate 25 MG TABLET 1 TAB PO BID BP (Reported) Nystatin 100,000 UNIT/GRAM CREAM..G. 1 TRUNG TOP TID fungal rash APPLY TO GROIN AREA FUNGAL RASH Oxycodone HCl/Acetaminophen (Percocet 5-325 MG Tablet) 5 MG-325 MG TABLET 1-2 TAB PO Q4P PRN PAIN Simvastatin (Zocor*) 20 MG TABLET 1 TAB PO QPM CHOLESTEROL (Reported) Triage Note: PT IS REQUESTING EVALUATION OF LEFT HEEL WOUND. HE SAW WARMS IN THE WOUND. REPORTS POSITIVE DISCHARGE FROM THE WOUND. Triage Nurses Notes Reviewed? yes Occurred: last week Duration: week(s): (1-2), constant, continues in ED, getting worse Timing: single episode today Severity: mild, moderate Severity Numbers: 6 Pain/Injury Location: Left: Ankle, Heel. Method of Injury: unknown No Modifying Factors: none HPI: 82-year-old male past medical history of diabetes, hypertension, hyperlipidemia, pulm embolism as her evaluation of a wound to his left heel/ankle. Patient states that he first noticed this wound 2 or 3 weeks ago and at that time it was mild and healing. He had been seen by Dr. Machuca and at the wound center and was doing well. He states that over the past 1-2 weeks now it is starting to become larger red swollen discharge and painful. He states that he had an aid changes dressing today and noted that there was increasing discharge and also thinks she saw multiple small worms. He states that the words were several elevators in length were moving and wear a white to clear color. He's never seen these before. He denies any fevers or known trauma to the area. He does not walk at baseline. He has numbness and tingling at baseline. No other associated symptoms of chest pain or shortness of breath. (Jaylan Stoner) Past History Travel History Traveled to [place] past 21 day No Medical History Any Pertinent Medical History? 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 No (Jaylan Stoner) Review of Systems Review of Systems Constitutional: Reports: no symptoms. EENTM: Reports: no symptoms. Respiratory: Reports: no symptoms. Cardiovascular: Reports: no symptoms. GI: Reports: no symptoms. Genitourinary: Reports: no symptoms. Musculoskeletal: Reports: no symptoms. Skin: Reports: see HPI, erythema, lesions. Neurological/Psychological: Reports: no symptoms. Hematologic/Endocrine: Reports: no symptoms. Immunologic/Allergic: Reports: no symptoms. All Other Systems: Reviewed and Negative (Jaylan Stoner) Physical Exam Physical Exam General Appearance: well developed/nourished, no apparent distress, alert, awake Head: atraumatic, normal appearance Eyes: Bilateral: normal appearance, EOMI. Ears, Nose, Throat: hearing grossly normal Neck: normal inspection, supple, full range of motion Cardiovascular/Respiratory: normal breath sounds, normal peripheral pulses, regular rate/rhythm, no respiratory distress Leg/Knee/Thigh Left: normal range of motion, normal inspection Leg/Knee/Thigh Right: [id number]-roo-[id number] amputation Ankle Left: swelling, tenderness, limited range of motion, there is a 3 cm horizontal length by 1 cm vertical length ulcerated wound on the posterior ankles/superior heel near the insertion of the Achilles tendon insertion . There is some surrounding erythema and soft tissue swelling. There is serous discharge coming from the area. No foreign bodies or "worms". full range of motion of the ankle is intact. Cap refill less than 2 seconds there is mild soft tissue swelling of the foot diffusely Ankle Right: amputation Foot Left: normal range of motion, soft tissue tenderness, swelling Foot Right: amputation Neuro/Vascular: normal motor function, normal sensation Tendon: normal tendon function Skin: intact, normal color, warm/dry (Black PA,Jaylan) Progress Differential Diagnosis: DVT, arterial insufficiency, cellulitis, septic arthritis, gout, fracture, dislocation, sprain, contusion, compartmental syndrome, osteomyelitis, necrotizing fasciitis, diabetic foot ulcer Plan of Care: Orders Procedure Date/time Status BLOOD CULTURE 03/26 1520 Active LACTIC ACID 03/26 1520 Complete WESTERGREN SED RATE 03/26 1520 Complete C-REACTIVE PROTEIN 03/26 1520 Complete COMPREHENSIVE METABOLIC PANEL 03/26 1520 Complete CBC WITHOUT DIFFERENTIAL 03/26 1520 Complete Laboratory Tests 03/26/18 1820: Lactic Acid Cancelled 03/26/18 1530: Anion Gap 12, Estimated GFR > 60, BUN/Creatinine Ratio 19.1, Glucose 131 H, Lactic Acid 1.0, Calcium 9.2, Total Bilirubin 0.5, AST 21, ALT 23, Alkaline Phosphatase 84, C-Reactive Prot, Quant 1.8 H, Total Protein 7.8, Albumin 3.6, Globulin 4.2, Albumin/Globulin Ratio 0.9 L, CBC w Diff NO MAN DIFF REQ, RBC 4.19 L, MCV 94.4 H, MCH 31.5 H, MCHC 33.4, RDW 14.8 H, MPV 8.2, Gran % 73.3, Lymphocytes % 18.7 L, Monocytes % 6.2, Eosinophils % 1.7, Basophils % 0.1, Absolute Granulocytes 5.6, Absolute Lymphocytes 1.4, Absolute Monocytes 0.5, Absolute Eosinophils 0.1, Absolute Basophils 0, ESR Westergren 96 H Microbiology 03/26 1541 BLOOD: Blood Culture - RECD 03/26 1530 BLOOD: Blood Culture - RECD He should seen and evaluated. He has a chronic ulceration/wound to the left ankle. There is some soft tissue swelling and erythema. No foreign bodies or parasite/insect seen. x-rays obtained do not show any acute findings or obvious signs of osteomyelitis. A sedimentation rate was obtained and is elevated at 96. Patient will need an outpatient MRI to rule out osteomyelitis. Spoke with Dr. Machuca who recommends treatment with antibiotics and he will follow-up with the patient on Tuesday in the wound center. Patient was given a dose of IM ceftriaxone here and will be discharged home on cephalexin. He has a allergy to penicillin but has tolerated cephalosporins in the past. The wound was cleaned with Betadine Xeroform dressing applied. Change dressing once daily. Discussed return precautions in detail. Case discussed with Dr. weems and he agrees. Diagnostic Imaging: Viewed by Me: Radiology Read. Discussed w/RAD: Radiology Read. Radiology Impression: PATIENT: ABIGAIL GROSS PRESENT AGE: 82 PATIENT ACCOUNT NO: [id number] : 34 LOCATION: [facility] ORDERING PHYSICIAN: Jaylan PENN SERVICE DATE: 03/26/18 EXAM TYPE: RAD - XRY- ANKLE 3 OR MORE VIEWS L; XRY-HEEL, LEFT EXAMINATION: XR ANKLE, LEFT X-RAY LEFT HEEL CLINICAL INFORMATION: Worsening swelling, redness, discharge, osteomyelitis COMPARISON: 02/09/2017 x-ray TECHNIQUE: AP, lateral, and mortise views of the left ankle. FINDINGS: The bones are demineralized and there is coarsening of the trabeculae. There is no acute fracture or dislocation of the left ankle. The ankle mortise is normal and symmetric. There is no focal lytic bony lesion of the ankle or the calcaneus. No periosteal reaction. There is soft tissue swelling surrounding the ankle. No soft tissue air or radiodense foreign body. The soft tissue swelling adjacent to the lateral malleolus is less prominent than 02/02/2017 x-ray. There is a focal soft tissue defect behind the dorsal calcaneus. IMPRESSION: Demineralized bones. No definite periosteal reaction. Soft tissue swelling without evidence of soft tissue air or radiodense foreign body. No definite x-ray evidence of osteomyelitis, considering limitations. Please note that MRI or bone scan are more sensitive modalities for detection of early acute osteomyelitis. DICTATED BY: Candis Arce MD DATE/TIME DICTATED:1621 TRADE EMBALMER:SERGEY DATE/TIME TRANSCRIBED:03/26/181621 CONFIDENTIAL, DO NOT COPY WITHOUT APPROPRIATE AUTHORIZATION. <Electronically signed in Other Vendor System> SIGNED BY: Candis Arce MD 03/26/18 5045 (Jaylan Stoner) Departure Departure Disposition: HOME OR SELF CARE Condition: Stable Clinical Impression Primary Impression: Foot ulcer, left Qualifiers: Non-pressure ulcer stage: with fat layer exposed Qualified Code: L97.522 - Non-pressure chronic ulcer of other part of left foot with fat layer exposed Referrals: Brigette BOWEN,Pramod Medrano MD,Jose Luis Lemus (PCP/Family) Additional Instructions: TAKE ANTIBIOTICS DIRETCED FOR FULL COURSE. CHANGE DRESSNIG ONCVE EVERY [address]LLOW UP WITH DR VAUGHN NO TUESDAY AT THE WOUND CENTER. CALL FOR AN APPT TIME. RETURN TO THE ER WITH WORSENING PAIN, SPREADING RENDESS, SWELLING OR FEVER. Departure Forms: Customer Survey General Discharge Information Prescriptions: Current Visit Scripts Cephalexin (Keflex) 1 CAP PO TID #30 CAP (Jaylan Stoner) PA/[employer] Co-Sign Statement Statement: ED Attending supervision documentation- x I saw and evaluated the patient. I have also reviewed all the pertinent lab results and diagnostic results. I agree with the findings and the plan of care as documented in the PA's/[employer]'s documentation. [] I have reviewed the ED Record and agree with the PA's/[employer]'s documentation. [] Additions or exceptions (if any) to the PAs/[employer]'s note and plan are summarized below: [] (Noelle SHAVER,Herve)
[2018-03-26] MEDS ORDERED: KEFLEX500 M1 PO (17:16)
[2018-03-26 17:29] VITALS: BP 132/77
== END 2018-03-26 17:29 ==
LOC: ERH 14:01
PROVIDERS: Physician Assistant Medical
DX: L97.429 Non-pressure chronic ulcer of left heel and midfoot with unspecified severity (principal)
CPT/HCPCS: 73610-LT; 73650-LT; 87040; 96372; J0696